=== PATIENT | female | born 1965 | race Caucasian/White ===

== ENCOUNTER 2016-07-19 08:35 | Outpatient (CLI) | payer MEDICARE, MEDICAID ==
[~2016-07-19] VITALS: Ht 161.3 cm; Wt 82.3 kg
[~2016-07-19 08:35] MED LIST: /MOXI40TA PO; ABIL10TA PO; ABIL1TAB5 PO; ABIL2TAB PO; ALPR1TAB3 PO; AMBI10TA OR; AMBI10TA PO; AMIT50TA PO; AMIT50TA2 PO; CARA1SUS OR; CIPRO; COUM1TAB17 PO; CYAN1000VL IM; CYCL10TA PO; DICY10CA13 PO; DICY10CA2; DICY20TA11 PO; FLAG500T; FLEXERIL OR; IRON10VL IV; IRON325T OR; LEVA250T PO; LOPE2TAB PO; LOPERAMIDE PO; LOVE0.6I2 SC; MAGN500T PO; MAXA10TA15 PO; MAXA10TA17; MAXA5TAB10 PO; MIRT45TA PO; MIRT45TA3 PO; OMEP20CA3 PO; OXYC-208 PO; OXYC10TA12 PO; OXYC15TA76 PO; PHEN 25; POLY150C4 PO; POTA10CA PO; POTA10TAB PO; POTASSIUM CITRATE ER PO; POTASSIUM CITRATE1; PRIL20CA PO; REME45TA; RIZA10TA4 PO; SUCR1TAB56 PO; TYLENOL #3; VENTAER IN; VITA-113 INJ; VITA1CHW8 PO; VITA500047 PO; VITAMIN B 12 IM; VITAMIN B12 INJ; VITAMIN D PO; VITAMIN D50000 UNT; VOLT1GEL24 TOP; XANA1TAB2; XARE20TA PO; ZOLP5TAB PO; [UNRECOGNIZED DRUG - OTHER]; [UNRECOGNIZED DRUG - OTHER]; potassium chloride PO
[2016-07-19] MEDS ORDERED: IRON DEXTRAN INJ 25 MG in NS 50 ML IV ONE (10:00)
[2016-07-19] MEDS ORDERED: IRON DEXTRAN INJ 975 MG in NS 250 ML IV ONE (11:00)
== END 2016-07-19 15:22 | disposition home or self-care (01) ==
LOC: M INFU 08:35 → M MS5PR 08:36 → M INFU 15:22
PROVIDERS: ATTEND Internal Medicine Nephrology
DX: D50.9 Iron deficiency anemia, unspecified (principal)
CPT/HCPCS: 96365; 96366; J1750

== ENCOUNTER → 2017-05-22 | Outpatient (REF) | payer MEDICARE, MEDICAID ==
[~2017-05-22] MED LIST changes: +ABIL10TA9 PO; -ABIL1TAB5 PO; +LEVA1TAB PO; -LEVA250T PO; +LOPE2CAP PO; -LOPE2TAB PO; +VOLT1GEL15 TOP; -VOLT1GEL24 TOP
== END ==
LOC: M LAB REF 17:40
PROVIDERS: ATTEND Surgery
DX: M53.3 Sacrococcygeal disorders, not elsewhere classified (principal); S31.109S Unspecified open wound of abdominal wall, unspecified quadrant without penetration into peritoneal cavity, sequela

== ENCOUNTER → 2017-07-12 | Outpatient (CLI) | payer MEDICARE, MEDICAID | LOC: M RAD 11:27 | DX: R92.2 Inconclusive mammogram (principal) | CPT/HCPCS: G0202 ==

== ENCOUNTER → 2017-07-25 | Outpatient (CLI) | payer MEDICARE, MEDICAID | LOC: M RAD 14:41 | DX: N60.82 Other benign mammary dysplasias of left breast (principal) | CPT/HCPCS: 77065 ==

== ENCOUNTER → 2017-10-11 | Outpatient (REF) | payer MEDICARE, MEDICAID ==
[2017-10-11 18:10] LABS: FERRITIN 69 NG/ML (8-252); IRON (FE) 48 UG/DL (50-170); PERCENT SATURATION 15.2 % (13.2-45.0); TOTAL IRON BINDING CAPACITY 316 UG/DL (250-450)
== END ==
LOC: M LAB REF 17:07
DX: D50.9 Iron deficiency anemia, unspecified (principal)
CPT/HCPCS: 83550

== ENCOUNTER 2017-11-07 12:20 | Outpatient (CLI) | payer MEDICARE, MEDICAID ==
[2017-11-07] MEDS: IRON SUCROSE 25 MG in NS 50 ML IV (12:57)
[2017-11-07] MEDS: IRON SUCROSE 475 MG in NS 250 ML IV (14:07)
== END 2017-11-07 17:50 | disposition home or self-care (01) ==
LOC: M INFU 12:20
DX: D50.9 Iron deficiency anemia, unspecified (principal); Z88.2 Allergy status to sulfonamides; Z79.01 Long term (current) use of anticoagulants; Z79.899 Other long term (current) drug therapy
CPT/HCPCS: J1756

== ENCOUNTER → 2017-11-13 | Outpatient (REF) | payer MEDICARE, MEDICAID | LOC: M LAB REF 10:22 | DX: D28.1 Benign neoplasm of vagina (principal); L73.2 Hidradenitis suppurativa | CPT/HCPCS: 88305 ==

== ENCOUNTER 2018-01-27 12:43 | Day surgery (SDC) | payer MEDICARE, MEDICAID ==
[2018-01-27] MEDS: NS 1,000 ML IV (14:00)
== END 2018-01-27 15:25 | disposition home or self-care (01) ==
LOC: M OPP 12:43
DX: R13.10 Dysphagia, unspecified (principal); R12 Heartburn; K22.8 Other specified diseases of esophagus; K21.0 Gastro-esophageal reflux disease with esophagitis; I12.9 Hypertensive chronic kidney disease with stage 1 through stage 4 chronic kidney disease, or unspecified chronic kidney disease; K50.90 Crohn's disease, unspecified, without complications; Z87.19 Personal history of other diseases of the digestive system; K44.9 Diaphragmatic hernia without obstruction or gangrene; D64.9 Anemia, unspecified; M19.90 Unspecified osteoarthritis, unspecified site; F41.9 Anxiety disorder, unspecified; F32.9 Major depressive disorder, single episode, unspecified; G43.909 Migraine, unspecified, not intractable, without status migrainosus; N18.2 Chronic kidney disease, stage 2 (mild); R53.83 Other fatigue; R19.7 Diarrhea, unspecified; R63.0 Anorexia; Z86.711 Personal history of pulmonary embolism; R06.02 Shortness of breath; Z87.891 Personal history of nicotine dependence; Z88.2 Allergy status to sulfonamides; Z79.01 Long term (current) use of anticoagulants; Z79.899 Other long term (current) drug therapy
CPT/HCPCS: 43249

== ENCOUNTER → 2018-04-25 | Outpatient (CLI) | payer MEDICARE, MEDICAID | LOC: M PAIN 14:00 | DX: M79.10 Myalgia, unspecified site (principal); M54.2 Cervicalgia; I10 Essential (primary) hypertension; J21.9 Acute bronchiolitis, unspecified; F41.0 Panic disorder [episodic paroxysmal anxiety]; F32.9 Major depressive disorder, single episode, unspecified; K44.9 Diaphragmatic hernia without obstruction or gangrene; Z79.01 Long term (current) use of anticoagulants; Z79.899 Other long term (current) drug therapy; Z88.1 Allergy status to other antibiotic agents; Z87.448 Personal history of other diseases of urinary system; Z86.2 Personal history of diseases of the blood and blood-forming organs and certain disorders involving the immune mechanism; Z87.19 Personal history of other diseases of the digestive system | CPT/HCPCS: G0463 ==

== ENCOUNTER → 2018-05-05 | Outpatient (CLI) | payer MEDICARE, MEDICAID ==
[~2018-05-05] MED LIST changes: -/MOXI40TA PO; -ABIL10TA PO; -ABIL10TA9 PO; -ABIL2TAB PO; -ALPR1TAB3 PO; -AMBI10TA OR; -AMBI10TA PO; -AMIT50TA PO; -AMIT50TA2 PO; +BUPIVACAINE HCL 0.25% 30 ML VIAL As Ordered; -CARA1SUS OR; -CIPRO; -COUM1TAB17 PO; -CYAN1000VL IM; -CYCL10TA PO; -DICY10CA13 PO; -DICY10CA2; -DICY20TA11 PO; -FLAG500T; -FLEXERIL OR; -IRON10VL IV; -IRON325T OR; -LEVA1TAB PO; -LOPE2CAP PO; -LOPERAMIDE PO; -LOVE0.6I2 SC; -MAGN500T PO; -MAXA10TA15 PO; -MAXA10TA17; -MAXA5TAB10 PO; -MIRT45TA PO; -MIRT45TA3 PO; -OMEP20CA3 PO; -OXYC-208 PO; -OXYC10TA12 PO; -OXYC15TA76 PO; -PHEN 25; -POLY150C4 PO; -POTA10CA PO; -POTA10TAB PO; -POTASSIUM CITRATE ER PO; -POTASSIUM CITRATE1; -PRIL20CA PO; -REME45TA; -RIZA10TA4 PO; -SUCR1TAB56 PO; +TRIAMCINOLONE ACETONIDE SUSP 40 MG/ML VIAL (J3301) As Ordered; -TYLENOL #3; -VENTAER IN; -VITA-113 INJ; -VITA1CHW8 PO; -VITA500047 PO; -VITAMIN B 12 IM; -VITAMIN B12 INJ; -VITAMIN D PO; -VITAMIN D50000 UNT; -VOLT1GEL15 TOP; -XANA1TAB2; -XARE20TA PO; -ZOLP5TAB PO; -[UNRECOGNIZED DRUG - OTHER]; -[UNRECOGNIZED DRUG - OTHER]; +diazePAM 5 MG TAB As Ordered; +oxyCODONE 5MG TAB As Ordered; -potassium chloride PO
== END ==
LOC: M PAIN 08:30
DX: M79.18 Myalgia, other site (principal); M54.2 Cervicalgia; K21.9 Gastro-esophageal reflux disease without esophagitis; M19.90 Unspecified osteoarthritis, unspecified site; F41.9 Anxiety disorder, unspecified; F43.10 Post-traumatic stress disorder, unspecified; F32.9 Major depressive disorder, single episode, unspecified; Z79.01 Long term (current) use of anticoagulants; Z79.899 Other long term (current) drug therapy; Z88.1 Allergy status to other antibiotic agents; Z90.49 Acquired absence of other specified parts of digestive tract; Z87.19 Personal history of other diseases of the digestive system; Z86.2 Personal history of diseases of the blood and blood-forming organs and certain disorders involving the immune mechanism; Z87.11 Personal history of peptic ulcer disease; Z86.711 Personal history of pulmonary embolism
CPT/HCPCS: J3301

== ENCOUNTER → 2018-05-22 | Outpatient (CLI) | payer MEDICARE, MEDICAID | LOC: M PAIN 15:15 | DX: M54.2 Cervicalgia (principal); M79.10 Myalgia, unspecified site; M25.562 Pain in left knee; G62.9 Polyneuropathy, unspecified; K21.9 Gastro-esophageal reflux disease without esophagitis; F41.0 Panic disorder [episodic paroxysmal anxiety]; F32.9 Major depressive disorder, single episode, unspecified; Z79.899 Other long term (current) drug therapy; Z88.1 Allergy status to other antibiotic agents; Z86.711 Personal history of pulmonary embolism; Z87.19 Personal history of other diseases of the digestive system | CPT/HCPCS: G0463 ==

== ENCOUNTER → 2018-05-23 | Outpatient (CLI) | payer MEDICARE, MEDICAID | LOC: M RAD 12:29 | DX: M79.10 Myalgia, unspecified site (principal); M25.462 Effusion, left knee; M50.21 Other cervical disc displacement, high cervical region; M50.221 Other cervical disc displacement at C4-C5 level; M50.222 Other cervical disc displacement at C5-C6 level; M50.223 Other cervical disc displacement at C6-C7 level; M47.892 Other spondylosis, cervical region | CPT/HCPCS: 72141 ==

== ENCOUNTER → 2018-07-02 | Outpatient (CLI) | payer MEDICARE, MEDICAID ==
[~2018-07-02] MED LIST changes: +/MOXI40TA PO; +ABIL10TA PO; +ABIL10TA9 PO; +ABIL2TAB PO; +ALPR1TAB3 PO; +AMBI10TA OR; +AMBI10TA PO; +AMIT50TA PO; +AMIT50TA2 PO; -BUPIVACAINE HCL 0.25% 30 ML VIAL As Ordered; +CARA1SUS OR; +CIPRO; +COUM1TAB17 PO; +CYAN1000VL IM; +CYCL10TA PO; +DICY10CA13 PO; +DICY10CA2; +DICY20TA11 PO; +FLAG500T; +FLEXERIL OR; +IFERCAP PO; +IRON10VL IV; +IRON325T OR; +KLOR10TA76 PO; +LEVA250T13 PO; +LOPE2CAP PO; +LOPERAMIDE PO; +LOVE0.6I2 SC; +MAGN400T2 PO; +MAGN500T PO; +MAXA10TA15 PO; +MAXA10TA17; +MAXA5TAB10 PO; +METO1TAB7 PO; +MIRT45TA PO; +MIRT45TA59 PO; +OMEP20CA3 PO; +OXYC-208 PO; +OXYC10TA12 PO; +OXYC15TA76 PO; +PHEN 25; +POLY150C4 PO; +POTA10808 PO; +POTASSIUM CITRATE ER PO; +POTASSIUM CITRATE1; +PRIL20CA PO; +REME45TA; +RIZA10TA4 PO; +SUCR1TAB56 PO; -TRIAMCINOLONE ACETONIDE SUSP 40 MG/ML VIAL (J3301) As Ordered; +TYLENOL #3; +VENTAER IN; +VITA-113 INJ; +VITA1CHW8 PO; +VITA1TAB27 PO; +VITA500047 PO; +VITAMIN B 12 IM; +VITAMIN B12 INJ; +VITAMIN D PO; +VITAMIN D50000 UNT; +VOLT1GEL15 TOP; +XANA1TAB2; +XARE20TA PO; +ZOLP5TAB PO; +[UNRECOGNIZED DRUG - OTHER]; +[UNRECOGNIZED DRUG - OTHER]; -diazePAM 5 MG TAB As Ordered; -oxyCODONE 5MG TAB As Ordered; +potassium chloride PO
--- NOTE | 2018-07-20 23:35 | ECWPNPC ---
PATIENT NAME: LESLEY ALFONSO : 1965 GENDER: FEMALE VISIT DATE: 07/02/2018 DISCHARGE DATE: 07/02/181753 VISIT LOCKED DATE TIME: PHYSICIAN: GAURAV PINK MD RESOURCE: GAURAV PINK MD REASON FOR APPOINTMENT 1. NECK/LEFT KNEE PAIN HISTORY OF PRESENT ILLNESS HISTORY OF PRESENT ILLNESS: PAIN THE PATIENT DESCRIBES THE PAIN... 52 YEAR OLD FEMALE PATIENT WITH A HISTORY OF CHRONIC NECK PAIN. THE PATIENT DESCRIBES THE PAIN ACHING, STABBING, TENDER, SORE, SHOOTING, AND HAVING IT ALL THE TIME WITH A PAIN SCORE OF 8-10/10 DEPENDING ON PHYSICAL ACTIVITY. THE PATIENT STATES THAT HER PAIN STARTS IN HER NECK AREA AND RADIATES UP INTO HER HEAD. THE PATIENT IS CURRENTLY USING OXYCODONE AND CYCLOBENZAPRINE TO AID IN PAIN RELIEF. PATIENT DENIES UNEXPLAINABLE WEIGHT LOSS, FEVER, CHILLS, NEW CHANGES ON HER URINARY OR BOWEL CONTROL. FALL RISK SCREENING: SCREENING :NO FALLS IN THE PAST YEAR CURRENT MEDICATIONS TAKING OXYCODONE HCL 5 MG TABLET 1 TABLET NEEDED ORALLY FOR PAIN DAILY, NOTES: NONE IN 2 WEEKS TAKING VITAMIN B-12 1000 MCG/15ML LIQUID 15 ML ORALLY ONCE PER MONTH, NOTES: LAST MONTH TAKING MIRTAZAPINE 45 MG TABLET 1 TABLET BEFORE BEDTIME IN THE EVENING ORALLY ONCE A DAY TAKING AMITRIPTYLINE HCL 50 MG TABLET 3 TABLETS ORALLY ONCE A DAY TAKING AMBIEN 5 MG TABLET 1 TABLET AT BEDTIME ORALLY ONCE A DAY TAKING LOPERAMIDE HCL 2 MG CAPSULE 1 CAPSULE ORALLY 3 TIME(S) A DAY TAKING OMEPRAZOLE 20 MG CAPSULE DELAYED RELEASE 2 CAPSULES ORALLY BID TAKING RIZATRIPTAN BENZOATE 10 MG TABLET 1 TABLET NEEDED ONE TIME ORALLY ONCE A DAY TAKING DICYCLOMINE HCL 10 MG CAPSULE 1 CAPSULE ORALLY 3 TIMES A DAY TAKING ABILIFY 10 MG TABLET 1 TABLET ORALLY ONCE A DAY TAKING POLY IRON PN 150 MG 1 CAP ORALLY BID TAKING SUCRALFATE 1 GM TABLET 1 TABLET ON AN EMPTY STOMACH ORALLY TWICE A DAY TAKING KLOR-CON 10 10 MEQ TABLET EXTENDED RELEASE 2 TABLET WITH FOOD ORALLY 3 TIMES A DAY TAKING POTASSIUM CITRATE ER 10 MEQ (1080 MG) TABLET EXTENDED RELEASE 2 TABLETS WITH MEALS ORALLY THREE TIMES A DAY TAKING XARELTO 10 MG TABLET 1 TABLET WITH FOOD ORALLY ONCE A DAY TAKING MAGNESIUM OXIDE 400 MG TABLET 1 TABLET ORALLY TWICE A DAY TAKING METOPROLOL SUCCINATE ER 50 MG TABLET EXTENDED RELEASE 24 HOUR 1 TABLET ORALLY ONCE A DAY TAKING AMLODIPINE BESYLATE 2.5 MG TABLET 1 TABLET ORALLY ONCE A DAY NOT-TAKING GABAPENTIN 100 MG CAPSULE 1 CAPSULE ORALLY FOR PAIN THREE TIMES A DAY, NOTES: ADVERSE REACTION NOT-TAKING BACLOFEN 10 MG TABLET 1 TABLET WITH FOOD OR MILK ORALLY TWICE DAILY NOT-TAKING DOXYCYCLINE HYCLATE 100 MG CAPSULE 1 CAPSULE ORALLY TWICE A DAY UNKNOWN HYDROCODONE-ACETAMINOPHEN 5-325 MG TABLET 1 TABLET NEEDED ORALLY EVERY 6 HRS UNKNOWN BETAMETHASONE DIPROPIONATE 0.05 % OINTMENT 1 APPLICATION TO AFFECTED AREA EXTERNALLY ONCE A DAY UNKNOWN AMOXICILLIN-POT CLAVULANATE 875-125 MG TABLET 1 TABLET ORALLY EVERY 8 HRS UNKNOWN CYCLOBENZAPRINE HCL 10 MG TABLET 1 TABLET ORALLY TWICE A DAY NEEDED UNKNOWN CHANTIX STARTING MONTH CHUY 0.5 MG X 11 & 1 MG X 42 TABLET ORALLY UNKNOWN DOXYCYCLINE HYCLATE 100 MG TABLET 1 TABLET ORALLY TWICE A DAY MEDICATION LIST REVIEWED AND RECONCILED WITH THE PATIENT PAST MEDICAL HISTORY CROHN'S DISEASE ANEMIA CHRONIC INTERSTITIAL NEPHRITIS STAGE 3 HIATAL HERNIA ACID REFLUX ARTHRITIS ANXIETY AND PANIC ATTACKS DEPRESSION GASTRIC ULCER ESOPHAGEAL STRICTURE PULMONARY EMBOLISM HIDRADENITIS PILNOIDAL CYST ILEOSTOMY ALLERGIES BACTRIM: CONTRAINDICATION NEURONTIN: SWEELING IN LEGS SURGICAL HISTORY [facility] PARTIAL REMOVAL OF INTESTINES 1990 [facility]- CHOLECYSTECTOMY 1993 [facility] - REMOVAL OF REMAINDER OF COLON AND SOME SMALL INTESTINES 1996 [facility] - REMOVAL OF RECTAL STUMP 1998 KIDNEY STONE WITH STENTING EXCISION OF RIGHT HIDRADENITIS RIGHT AND LEFT INGUINAL AREA OCTOBER 2017 HYSTERECTOMY FAMILY HISTORY FATHER: ALIVE, DIAGNOSED WITH HYPERTENSION, CANCER MOTHER: ALIVE, DIAGNOSED WITH HYPERTENSION 2 BROTHER(S) , 1 SISTER(S) - HEALTHY. 1 SON(S) - HEALTHY. FATHER WITH LUNG CANCER. SOCIAL HISTORY GENERAL: TOBACCO USE ARE YOU A:NONSMOKER ALCOHOL SCREENING DID YOU HAVE A DRINK CONTAINING ALCOHOL IN THE PAST YEAR?YES HOW MANY DRINKS DID YOU HAVE ON A TYPICAL DAY WHEN YOU WERE DRINKING IN THE PAST YEAR?1 OR 2 (0 POINTS) HOW OFTEN DID YOU HAVE SIX OR MORE DRINKS ON ONE OCCASION IN THE PAST YEAR?NEVER (0 POINTS) POINTS3 INTERPRETATIONPOSITIVE HOW OFTEN DID YOU HAVE A DRINK CONTAINING ALCOHOL IN THE PAST YEAR?TWO TO THREE TIMES PER WEEK (3 POINTS) RECREATIONAL DRUG USE DRUG USE?NO CAFFEINE CAFFEINE USE?YES COFFEE 2-4 CUPS PER DAY ANABAPTIST [id number] SIKHISM NO CONFUCIANISM BELIEFS THAT WOULD IMPACT HEALTH CARE. LANGUAGE TURKMEN. 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 LEARNING BARRIERS / SPECIAL NEEDS CHANGE FROM LAST VISIT?NO BARRIERS TO LEARNING?NO HEARING IMPAIRED?NO VISION IMPAIRED?YES :CORRECTIVE LENSES COGNITIVELY IMPAIRED?NO READINESS TO LEARN?YES LEARNING PREFERENCES?NO LEARNING CAPABILITIES PRESENT?YES EMOTIONAL BARRIERS?NO OCCUPATION: DISABLED. DIET: REGULAR. EXERCISE: NONE. MARITAL STATUS: .. OTHERS AT HOME: NONE. PAIN CLINIC PFS, CLERGY, PUBLIC HEALTH REFERRALS PFS REFERRAL NEEDED?NO CLERGY REFERRAL NEEDED?NO PUBLIC HEALTH REFERRAL NEEDED?NO WAS THE PROVIDER NOTIFIED OF ANY PERTINENT INFO?NO HAS THE PATIENT BEEN EDUCATED REGARDING HIS/HER PLAN OF CARE?YES HAS THE PATIENT BEEN EDUCATED REGARDING PAIN, THE RISK FOR PAIN, THE IMPORTANCE OF EFFECTIVE PAIN MANAGEMENT, AND THE PAIN ASSESSMENT PROCESS?YES HOUSING: OWNS MOBILE HOME. ADVANCE DIRECTIVE ADVANCE DIRECTIVE DISCUSSED WITH PATIENT:YES HCP IS MASOOD ALFONSO 07-02-18 REVIEWED REVIEWED WITH PT 05/22/18 1550 BV. HOSPITALIZATION/MAJOR DIAGNOSTIC PROCEDURE SURGERY RELATED DEHYDRATION 03/2016 REVIEW OF SYSTEMS REVIEWED BY: PROVIDER: GAURAV PINK MD . CONSTITUTIONAL: ANY CHANGE IN YOUR MEDICAL CONDITION? NO . CHILLS NO . FEVER NO . INFECTION: DO YOU HAVE NEW INFECTIONS? NO . DO YOU HAVE HISTORY OF MRSA? NO . MUSCULOSKELETAL: ANY NEW PATTERNS OF PAIN OR NUMBNESS? NO . GASTROENTEROLOGY: ANY NEW CHANGE IN BOWEL CONTROL? NO . GENITOURINARY: ANY NEW CHANGE IN BLADDER CONTROL? NO . IS THERE A CHANCE YOU COULD BE ? NO . HEMATOLOGY/LYMPH: DO YOU TAKE ANY BLOOD THINNERS? (FOR EXAMPLE- COUMADIN, PLAVIX, AGGRENOX, PLATEL, PRADAXA, OR XARELTO) YES . WHEN WAS YOUR LAST DOSE? DATE: TIME: . NEUROLOGY: HAVE YOU FALLEN IN THE PAST 6 MONTHS? NO . ANY NEW EXTREMITY NUMBNESS OR WEAKNESS? NO . CARDIOLOGY: DO YOU HAVE A PACEMAKER OR DEFIBRILLATOR? NO . RESPIRATORY: HAVE YOU BEEN SICK IN THE PAST WEEK? NO . FEVER NO . FLU LIKE SYMPTOMS? NO . COUGH NO . INTEGUMENTARY: DO YOU HAVE ANY RASHES OR OPEN SORES? YES BEING TREATED BY [facility] DR VAZQUEZ FOR HYDRONITIS . ALLERGIC/IMMUNO: ARE YOU ALLERGIC TO SHELLFISH OR IV DYE? NO . ANY NEW ALLERGIES? NO . PSYCHIATRIC: DO YOU HAVE THOUGHTS OF HURTING YOURSELF OR SOMEONE ELSE? NO . ARE YOU ABUSED, NEGLECTED, OR IN AN UNSAFE ENVIRONMENT? NO . ENDOCRINOLOGY: ARE YOU DIABETIC? NO . OTHER: DO YOU NEED ANY PRESCRIPTIONS? NO . IF YES, PLEASE LIST: ____ . ANY NEW PROBLEMS WITH YOUR MEDICATIONS? NO . WHEN DID YOU LAST EAT? ____ . WHEN DID YOU LAST DRINK? ____ . WHAT DID YOU LAST DRINK? ____ . NAME OF PERSON DRIVING YOU HOME? ____ . DO YOU HAVE ANY OTHER QUESTIONS OR CONCERNS NO . VITAL SIGNS WT 222.4 LBS, HT 63 IN, BMI 39.39 INDEX, BP 160/98 MM HG, HR 110 /MIN, RR 18 /MIN, TEMP 98.0 F, OXYGEN SAT % 99%, NA INITIALS AW 1546, REVIEWED BY: KG. EXAMINATION GENERAL EXAMINATION: PATIENT IS ALERT O X 3 AND COOPERATIVE. PAIN INCREASES OVER THE CERVICAL FACET JOINTS WITH EXTENSION AND LATERAL ROTATION OF THE NECK. MRI OF THE CERVICAL SPINE DONE ON 05/23/2018 SHOWS FACET ARTHROPATHY CHANGES AT MULTIPLE LEVELS. ASSESSMENTS SPONDYLOSIS OF CERVICAL REGION WITHOUT MYELOPATHY OR RADICULOPATHY - M47.812 (PRIMARY) MYALGIA, OTHER SITE - M79.18 TREATMENT SPONDYLOSIS OF CERVICAL REGION WITHOUT MYELOPATHY OR RADICULOPATHY CLINICAL NOTES: WE DISCUSSED SEVERAL ISSUES WITH MRS. ALFONSO'S PAIN MANAGEMENT CASE. THE PATIENT WILL SIGN A NARCOTIC AGREEMENT AND PERFORM A URINE TOXICOLOGY TODAY. ISTOP _[id number] WAS REVIEWED. I WILL NEED TO GET A CLEARANCE FOR THE PATIENT TO STOP XARELTO FOR ANY INJECTIONS. AFTER WE RECEIVED THE CLEARANCE, THE PATIENT WILL CONSIDER A CERVICAL FACET BLOCK. I WILL REQUEST AN INTERFERENTIAL TENS UNIT TO SEE IF THAT WILL HELP WITH THE PATIENT'S PAIN FOR NOW UNTIL SHE IS ABLE TO RECEIVE INJECTIONS. THE PATIENT WILL FOLLOW UP IN 1 MONTH. INSTRUCTIONS WERE GIVEN, QUESTIONS WERE ANSWERED, PATIENT REPORTS UNDERSTANDING AND AGREES WITH THE PLAN. I, BRENNA WOODS, DOCUMENTED THE ABOVE INFORMATION ACTING A SCRIBE FOR DR. PINK. I HAVE REVIEWED THE ABOVE DOCUMENT, WRITTEN BY BRENNA NETTLES AND I VERIFY THAT IT IS ACCURATE. OTHERS REFILL OXYCODONE HCL TABLET, 5 MG, 1 TABLET NEEDED, ORALLY FOR PAIN, DAILY, 30 DAY(S), 30 TABLET, REFILLS 0, NOTES: NONE IN 2 WEEKS START CYCLOBENZAPRINE HCL TABLET, 10 MG, 1 TABLET NEEDED, ORALLY FOR SPASMS AND PAIN, EVERY 6 HOURS NEEDED MDD3, 30 DAY(S), 60, REFILLS 1 PROCEDURE CODES FA211 ESTABILISHED PATIENT MERGED WITH [facility] CHARGE G8427 CURRENT MEDS W/DOSAGES DOCUMENTED G8730 PAIN ASSESS POS TOOL F/U PLAN DOC DISPOSITION & COMMUNICATION FOLLOW UP 4 WEEKS ELECTRONICALLY SIGNED BY GAURAV PINK MD, MD ON 07/20/2018 AT 03:11 PM EST DISCLAIMER : THIS IS A VISIT SUMMARY EXTRACTED FROM THE [employer] CHART. IT IS NOT A COPY OF THE [employer] PROGRESS NOTE. MTDD
== END ==
LOC: M PAIN 15:45
PROVIDERS: ATTEND Anesthesiology
DX: M47.812 Spondylosis without myelopathy or radiculopathy, cervical region (principal); M79.18 Myalgia, other site; K50.90 Crohn's disease, unspecified, without complications; D64.9 Anemia, unspecified; N11.9 Chronic tubulo-interstitial nephritis, unspecified; K44.9 Diaphragmatic hernia without obstruction or gangrene; K21.9 Gastro-esophageal reflux disease without esophagitis; M19.90 Unspecified osteoarthritis, unspecified site; F41.0 Panic disorder [episodic paroxysmal anxiety]; F32.9 Major depressive disorder, single episode, unspecified; Z90.49 Acquired absence of other specified parts of digestive tract; Z87.442 Personal history of urinary calculi; Z88.8 Allergy status to other drugs, medicaments and biological substances; Z88.2 Allergy status to sulfonamides; Z79.01 Long term (current) use of anticoagulants; Z79.899 Other long term (current) drug therapy

== ENCOUNTER → 2018-08-25 | Outpatient (CLI) | payer MEDICARE, MEDICAID | LOC: M RAD 12:46 | PROVIDERS: ATTEND Nurse Practitioner Adult Health | DX: Z12.31 Encounter for screening mammogram for malignant neoplasm of breast (principal); Z53.8 Procedure and treatment not carried out for other reasons ==

== ENCOUNTER → 2018-09-16 | Outpatient (REF) | payer MEDICARE, MEDICAID ==
[2018-09-16 18:31] LABS: PERCENT SATURATION 12.6 % (13.2-45.0)
== END ==
LOC: M LAB REF 17:16
PROVIDERS: ATTEND Internal Medicine Nephrology
DX: N39.0 Urinary tract infection, site not specified (principal); D50.9 Iron deficiency anemia, unspecified

== ENCOUNTER → 2018-09-22 | Outpatient (CLI) | payer MEDICARE, MEDICAID ==
[~2018-09-22] MED LIST changes: +AMLO25TA PO; +FENO134C PO; +OXYC1CAP PO
--- NOTE | 2018-10-07 03:50 | ECWPNPC ---
PATIENT NAME: LESLEY ALFONSO : 1965 GENDER: FEMALE VISIT DATE: 09/22/2018 DISCHARGE DATE: 09/22/18 1249 VISIT LOCKED DATE TIME: PHYSICIAN: GAURAV PINK MD RESOURCE: GAURAV PINK MD DISCLAIMER : THIS IS A VISIT SUMMARY EXTRACTED FROM THE [facility] CHART. IT IS NOT A COPY OF THE [employer] PROGRESS NOTE. MTDD
== END ==
LOC: M PAIN 11:45
PROVIDERS: ATTEND Anesthesiology
DX: M47.812 Spondylosis without myelopathy or radiculopathy, cervical region (principal); M79.18 Myalgia, other site; K21.9 Gastro-esophageal reflux disease without esophagitis; M19.90 Unspecified osteoarthritis, unspecified site; F32.9 Major depressive disorder, single episode, unspecified; Z79.01 Long term (current) use of anticoagulants; E66.01 Morbid (severe) obesity due to excess calories; Z68.41 Body mass index [BMI] 40.0-44.9, adult; Z79.899 Other long term (current) drug therapy; Z88.1 Allergy status to other antibiotic agents; Z88.8 Allergy status to other drugs, medicaments and biological substances; Z86.711 Personal history of pulmonary embolism; Z87.11 Personal history of peptic ulcer disease; Z87.19 Personal history of other diseases of the digestive system

== ENCOUNTER 2018-10-02 08:55 | Outpatient (CLI) | payer MEDICARE, MEDICAID ==
[~2018-10-02] VITALS: Ht 160 cm; Wt 101.8 kg
[~2018-10-02 08:55] MED LIST changes: -AMLO25TA PO; -FENO134C PO; -OXYC1CAP PO
[2018-10-02 09:00] VITALS: BP 127/68
[2018-10-02] MEDS ORDERED: IRON SUCROSE 175 MG in NS 250 ML IV ONE (09:30)
[2018-10-02] MEDS ORDERED: IRON SUCROSE 25 MG in NS 50 ML IV ONE (09:30)
[2018-10-02 10:20] VITALS: BP 124/53
[2018-10-02 11:30] VITALS: BP 117/62
[2018-10-02 12:30] VITALS: BP 108/56
[2018-10-02 14:00] VITALS: BP 107/50
[2018-10-02] MEDS ORDERED: OXYC1CAP PO (14:19)
[2018-10-02] MEDS ORDERED: AMLO25TA PO (14:20)
[2018-10-02] MEDS ORDERED: FENO134C PO (14:22)
[2018-10-02 15:00] VITALS: BP 144/72
== END 2018-10-02 15:00 | disposition home or self-care (01) ==
LOC: M INFU 08:55
PROVIDERS: ATTEND Internal Medicine Nephrology
DX: D50.9 Iron deficiency anemia, unspecified (principal); Z88.1 Allergy status to other antibiotic agents; Z88.8 Allergy status to other drugs, medicaments and biological substances; Z79.891 Long term (current) use of opiate analgesic; Z79.899 Other long term (current) drug therapy
CPT/HCPCS: 96365; 96366; J1756

== ENCOUNTER 2018-10-09 08:47 | Outpatient (CLI) | payer MEDICARE, MEDICAID ==
[~2018-10-09] VITALS: Ht 160 cm; Wt 101.8 kg
[~2018-10-09 08:47] MED LIST changes: -/MOXI40TA PO; +AMLO25TA PO; +AVEL1TAB2 PO; +FENO134C PO; +IRON100V IV; -IRON10VL IV; +MIRT1TAB17 PO; -MIRT45TA59 PO; +OXYC1CAP PO
[2018-10-09 09:01] VITALS: BP 166/80
[2018-10-09 09:36] VITALS: BP 121/79
[2018-10-09] MEDS ORDERED: IRON SUCROSE 200 MG in NS 250 ML IV ONE (10:00)
[2018-10-09 10:42] VITALS: BP 113/57
[2018-10-09 11:05] VITALS: BP 120/69
== END 2018-10-09 11:05 | disposition home or self-care (01) ==
LOC: M INFU 08:47
PROVIDERS: ATTEND Internal Medicine Nephrology
DX: D50.9 Iron deficiency anemia, unspecified (principal)
CPT/HCPCS: 96365; 96366; J1756

== ENCOUNTER 2018-10-16 08:53 | Outpatient (CLI) | payer MEDICAID, MEDICARE ==
[~2018-10-16] VITALS: Ht 160 cm; Wt 101.8 kg
[2018-10-16 09:00] VITALS: BP 168/78
[2018-10-16 10:00] VITALS: BP 130/74
[2018-10-16] MEDS ORDERED: IRON SUCROSE 200 MG in NS 250 ML IV ONE (10:00)
[2018-10-16 10:55] VITALS: BP 113/55
[2018-10-16 12:45] VITALS: BP 136/72
[2018-10-16 13:00] VITALS: BP 128/65
== END 2018-10-16 13:00 | disposition home or self-care (01) ==
LOC: M INFU 08:53
PROVIDERS: ATTEND Internal Medicine Nephrology
DX: D50.9 Iron deficiency anemia, unspecified (principal); Z88.1 Allergy status to other antibiotic agents; Z88.8 Allergy status to other drugs, medicaments and biological substances
CPT/HCPCS: 96365; 96366; J1756

== ENCOUNTER → 2018-10-20 | Outpatient (CLI) | payer MEDICARE, MEDICAID ==
--- NOTE | 2018-11-04 02:33 | ECWPNPC ---
PATIENT NAME: LESLEY ALFONSO : 1965 GENDER: FEMALE VISIT DATE: 10/20/2018 DISCHARGE DATE: 10/20/18 1037 VISIT LOCKED DATE TIME: PHYSICIAN: GAURAV PINK MD RESOURCE: GAURAV PINK MD DISCLAIMER : THIS IS A VISIT SUMMARY EXTRACTED FROM THE [employer] CHART. IT IS NOT A COPY OF THE [employer] PROGRESS NOTE. NICOLE
== END ==
LOC: M PAIN 09:15
PROVIDERS: ATTEND Anesthesiology
DX: M47.812 Spondylosis without myelopathy or radiculopathy, cervical region (principal); G89.29 Other chronic pain; M25.562 Pain in left knee; K21.9 Gastro-esophageal reflux disease without esophagitis; M19.90 Unspecified osteoarthritis, unspecified site; E66.01 Morbid (severe) obesity due to excess calories; Z68.41 Body mass index [BMI] 40.0-44.9, adult; Z79.899 Other long term (current) drug therapy; Z79.01 Long term (current) use of anticoagulants; Z88.1 Allergy status to other antibiotic agents; Z88.8 Allergy status to other drugs, medicaments and biological substances; Z86.2 Personal history of diseases of the blood and blood-forming organs and certain disorders involving the immune mechanism; Z86.59 Personal history of other mental and behavioral disorders; Z87.19 Personal history of other diseases of the digestive system; Z87.448 Personal history of other diseases of urinary system

== ENCOUNTER 2018-10-23 08:44 | Outpatient (CLI) | payer MEDICAID, MEDICARE ==
[~2018-10-23] VITALS: Ht 160 cm; Wt 101.8 kg
[2018-10-23 09:00] VITALS: BP 147/77
[2018-10-23] MEDS ORDERED: IRON SUCROSE 200 MG in NS 250 ML IV ONE (09:00)
[2018-10-23 09:35] VITALS: BP 152/75
[2018-10-23 10:39] VITALS: BP 115/76
[2018-10-23 11:45] VITALS: BP 126/67
[2018-10-23 12:08] VITALS: BP 120/74
== END 2018-10-23 12:05 | disposition home or self-care (01) ==
LOC: M INFU 08:44
PROVIDERS: ATTEND Internal Medicine Nephrology
DX: D50.9 Iron deficiency anemia, unspecified (principal); Z88.1 Allergy status to other antibiotic agents; Z88.8 Allergy status to other drugs, medicaments and biological substances
CPT/HCPCS: 96365; 96366; J1756

== ENCOUNTER → 2018-11-17 | Outpatient (REF) | payer MEDICARE, MEDICAID ==
[2018-11-17 16:03] LABS: HEMATOCRIT 36.2 % (36.0-47.0); HEMOGLOBIN 11.5 g/dl (12.0-15.5); MEAN CORPUSCULAR HEMOGLOBIN 28.3 pg (27.0-33.0); MEAN CORPUSCULAR HGB CONC 31.8 g/dl (32.0-36.5); MEAN CORPUSCULAR VOLUME 89.2 fl (80.0-96.0); PLATELET COUNT, AUTOMATED 328 10^3/uL (150-450); RED BLOOD COUNT 4.06 10^6/uL (4.00-5.40); WHITE BLOOD COUNT 9.4 10^3/uL (4.0-10.0)
[2018-11-17 16:16] LABS: ALBUMIN 3.8 GM/DL (3.2-5.2); ALT/SGPT 26 U/L (12-78); BILIRUBIN,TOTAL 0.2 MG/DL (0.2-1.0); BLOOD UREA NITROGEN 18 MG/DL (7-18); CALCIUM LEVEL 9.2 MG/DL (8.5-10.1); CARBON DIOXIDE LEVEL 26 MEQ/L (21-32); CHLORIDE LEVEL 103 MEQ/L (98-107); CREATININE FOR GFR 1.78 MG/DL (0.55-1.30); GLOMERULAR FILTRATION RATE 31.7 (>51); GLUCOSE, FASTING 151 MG/DL (70-100); SODIUM LEVEL 136 MEQ/L (136-145); TOTAL PROTEIN 8.5 GM/DL (6.4-8.2)
[2018-11-17 16:26] LABS: HEPATITIS B SURFACE ANTIBODY NEGATIVE (POSITIVE)
[2018-11-17 16:36] LABS: HEPATITIS B SURFACE ANTIGEN NEGATIVE (NEGATIVE)
[2018-11-17 17:05] LABS: HEPATITIS C VIRUS ABY INDEX 0.1 INDEX (<0.8); HIV 1&2 SCREEN CENTAUR NEGATIVE (NEGATIVE)
[2018-11-19 08:06] LABS: HEPATITIS B CORE ANTIBODY IGG Negative (Negative)
== END ==
LOC: M SFHCPLAZ 13:59
PROVIDERS: ATTEND Dermatology
DX: Z51.81 Encounter for therapeutic drug level monitoring (principal); Z79.899 Other long term (current) drug therapy

== ENCOUNTER → 2018-11-17 | Outpatient (REF) | payer MEDICARE, MEDICAID ==
[2018-11-17 19:54] LABS: BASO # 0.1 10^3/uL (0.0-0.2); BASO % 0.6 % (0.0-1.0); EOS # 0.2 10^3/uL (0.0-0.50); EOS % 2.7 % (0.0-3.0); HEMATOCRIT 34.8 % (36.0-47.0); LYMPH # 1.9 10^3/uL (1.5-4.5); LYMPH % 23.2 % (24.0-44.0); MEAN CORPUSCULAR HEMOGLOBIN 28.6 pg (27.0-33.0); MEAN CORPUSCULAR HGB CONC 31.6 g/dl (32.0-36.5); MEAN CORPUSCULAR VOLUME 90.6 fl (80.0-96.0); MONO # 0.4 10^3/uL (0.0-0.8); MONO % 4.6 % (0.0-5.0); NEUTROPHILS # 5.5 10^3/uL (1.8-7.7); NEUTROPHILS % 68.7 % (36.0-66.0); PLATELET COUNT, AUTOMATED 297 10^3/uL (150-450); RED BLOOD COUNT 3.84 10^6/uL (4.00-5.40); WHITE BLOOD COUNT 8.1 10^3/uL (4.0-10.0)
[2018-11-17 20:05] LABS: ALBUMIN 3.7 GM/DL (3.2-5.2); BILIRUBIN,TOTAL 0.2 MG/DL (0.2-1.0); CHOLESTEROL RISK RATIO 3.051 (<5); CREATININE FOR GFR 1.74 MG/DL (0.55-1.30); GLOMERULAR FILTRATION RATE 32.6 (>51); POTASSIUM SERUM 4.1 MEQ/L (3.5-5.1); THYROID STIMULATING HORMONE 1.34 uIU/ML (0.358-3.740); TOTAL PROTEIN 8.3 GM/DL (6.4-8.2)
[2018-11-17 20:07] LABS: HEMOGLOBIN A1c 7.1 %
== END ==
LOC: M LABDRWAD 19:30
PROVIDERS: ATTEND Nurse Practitioner Adult Health
DX: N05.8 Unspecified nephritic syndrome with other morphologic changes (principal); E78.00 Pure hypercholesterolemia, unspecified; E78.1 Pure hyperglyceridemia; R73.9 Hyperglycemia, unspecified; Z51.81 Encounter for therapeutic drug level monitoring; Z79.899 Other long term (current) drug therapy

== ENCOUNTER → 2018-12-09 | Outpatient (CLI) | payer MEDICARE, MEDICAID ==
--- NOTE | 2018-12-20 23:32 | ECWPNPC ---
PATIENT NAME: LESLEY ALFONSO : 1965 GENDER: FEMALE VISIT DATE: 12/09/2018 DISCHARGE DATE: 12/09/18 1232 VISIT LOCKED DATE TIME: PHYSICIAN: GAURAV PINK MD RESOURCE: GAURAV PINK MD REASON FOR APPOINTMENT 1. 6 WEEKS HISTORY OF PRESENT ILLNESS HISTORY OF PRESENT ILLNESS: PAIN THE PATIENT DESCRIBES THE PAIN... 53 YEAR OLD FEMALE PATIENT WITH A HISTORY OF CHRONIC NECK PAIN. THE PATIENT DESCRIBES THE PAIN ACHING, SORE, TENDER, SHARP, STABBING, SHOOTING, AND CONTINUOUS WITH A PAIN SCORE OF 6-9/10 DEPENDING ON PHYSICAL ACTIVITY. THE PATIENT SAYS THAT SHE ALSO HAS PAIN IN HER RIGHT SHOULDER AND LEFT KNEE. THE PATIENT STATES SHE HAS DIFFICULTY DOING DAILY ACTIVITIES SUCH COOKING AND CLEANING DUE TO THIS PAIN. THE PATIENT IS CURRENTLY USING 2 OXYCODONE PER DAY NEEDED TO AID IN PAIN RELIEF, BUT SAYS IT HAS NOT BEEN HELPING MUCH. PATIENT DENIES UNEXPLAINABLE WEIGHT LOSS, FEVER, CHILLS, NEW CHANGES ON HER URINARY OR BOWEL CONTROL. FALL RISK SCREENING: SCREENING :NO FALLS REPORTED IN THE LAST YEAR CURRENT MEDICATIONS TAKING CYANOCOBALAMIN 1000 MCG/ML SOLUTION 1 ML INJECTION ONCE PER MONTH TAKING AMITRIPTYLINE HCL 50 MG TABLET 3 TABLETS ORALLY ONCE A DAY TAKING AMBIEN 5 MG TABLET 1 TABLET AT BEDTIME ORALLY ONCE A DAY TAKING LOPERAMIDE HCL 2 MG CAPSULE 1 CAPSULE ORALLY 3 TIME(S) A DAY TAKING OMEPRAZOLE 20 MG CAPSULE DELAYED RELEASE 2 CAPSULES ORALLY BID TAKING RIZATRIPTAN BENZOATE 10 MG TABLET 1 TABLET NEEDED ONE TIME ORALLY ONCE A DAY TAKING DICYCLOMINE HCL 10 MG CAPSULE 1 CAPSULE ORALLY 3 TIMES A DAY TAKING ABILIFY 10 MG TABLET 1 TABLET ORALLY ONCE A DAY TAKING POLY IRON PN 150 MG 1 CAP ORALLY BID TAKING SUCRALFATE 1 GM TABLET 1 TABLET ON AN EMPTY STOMACH ORALLY TWICE A DAY TAKING KLOR-CON 10 10 MEQ TABLET EXTENDED RELEASE 2 TABLET WITH FOOD ORALLY 3 TIMES A DAY TAKING POTASSIUM CITRATE ER 10 MEQ (1080 MG) TABLET EXTENDED RELEASE 2 TABLETS WITH MEALS ORALLY THREE TIMES A DAY TAKING XARELTO 10 MG TABLET 1 TABLET WITH FOOD ORALLY ONCE A DAY TAKING MAGNESIUM OXIDE 400 MG TABLET 1 TABLET ORALLY TWICE A DAY TAKING METOPROLOL SUCCINATE ER 50 MG TABLET EXTENDED RELEASE 24 HOUR 1 TABLET ORALLY ONCE A DAY TAKING OXYCODONE HCL 5 MG TABLET 1 TABLET NEEDED ORALLY FOR PAIN EVERY 12 HOURS NEEDED MDD2, NOTES: NONE IN 2 WEEKS TAKING FENOFIBRATE 134 MG CAPSULE 1 CAPSULE WITH A MEAL ORALLY ONCE A DAY TAKING CYCLOBENZAPRINE HCL 10 MG TABLET 1 TABLET NEEDED ORALLY FOR SPASMS AND PAIN EVERY 6 HOURS NEEDED MDD3 TAKING TRADJENTA 5 MG TABLET 1 TABLET ORALLY ONCE A DAY TAKING HUMIRA 40 MG/0.8ML PREFILLED SYRINGE KIT 0.8 ML SUBCUTANEOUS INJECT 160 MG DAY 1 AT 4 SITES, INJECT 80 MG ON DAY 15 AT 2 SITES, INJECT 40 MG DAY AND EVERY 2 WK THEREAFTER, NOTES: HASN'T STARTED YET TAKING MIRTAZAPINE 45 MG TABLET 1 TABLET BEFORE BEDTIME IN THE EVENING ORALLY ONCE A DAY TAKING AMLODIPINE BESYLATE 2.5 MG TABLET 1 TABLET ORALLY ONCE A DAY NOT-TAKING TIZANIDINE HCL 2 MG TABLET 1 TABLET NEEDED ORALLY FOR SPASMS AND PAIN THREE TIMES A DAY MDD3 NOT-TAKING GABAPENTIN 100 MG CAPSULE 1 CAPSULE ORALLY FOR PAIN THREE TIMES A DAY, NOTES: ADVERSE REACTION NOT-TAKING BACLOFEN 10 MG TABLET 1 TABLET WITH FOOD OR MILK ORALLY TWICE DAILY NOT-TAKING DOXYCYCLINE HYCLATE 100 MG CAPSULE 1 CAPSULE ORALLY TWICE A DAY NOT-TAKING HYDROCODONE-ACETAMINOPHEN 5-325 MG TABLET 1 TABLET NEEDED ORALLY EVERY 6 HRS NOT-TAKING BETAMETHASONE DIPROPIONATE 0.05 % OINTMENT 1 APPLICATION TO AFFECTED AREA EXTERNALLY ONCE A DAY NOT-TAKING AMOXICILLIN-POT CLAVULANATE 875-125 MG TABLET 1 TABLET ORALLY EVERY 8 HRS NOT-TAKING CHANTIX STARTING MONTH CHUY 0.5 MG X 11 & 1 MG X 42 TABLET ORALLY NOT-TAKING DOXYCYCLINE HYCLATE 100 MG TABLET 1 TABLET ORALLY TWICE A DAY DISCONTINUED VITAMIN B-12 1000 MCG/15ML LIQUID 15 ML ORALLY ONCE PER MONTH, NOTES: DUPLICATE DISCONTINUED CYCLOBENZAPRINE HCL 10 MG TABLET 1 TABLET ORALLY TWICE A DAY NEEDED, NOTES: DUPLICATE MEDICATION LIST REVIEWED AND RECONCILED WITH THE PATIENT PAST MEDICAL HISTORY CROHN'S DISEASE ANEMIA CHRONIC INTERSTITIAL NEPHRITIS STAGE 3 HIATAL HERNIA ACID REFLUX ARTHRITIS ANXIETY AND PANIC ATTACKS DEPRESSION GASTRIC ULCER ESOPHAGEAL STRICTURE PULMONARY EMBOLISM HIDRADENITIS PILNOIDAL CYST ILEOSTOMY UTI'S 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 - REMOVAL OF REMAINDER OF COLON AND SOME SMALL INTESTINES 1996 [facility] - REMOVAL OF RECTAL STUMP 1998 KIDNEY STONE WITH STENTING EXCISION OF RIGHT HIDRADENITIS RIGHT AND LEFT INGUINAL AREA OCTOBER 2017 HYSTERECTOMY FAMILY HISTORY FATHER: ALIVE, DIAGNOSED WITH HYPERTENSION, CANCER MOTHER: ALIVE, HYPERTENSION 2 BROTHER(S) , 1 SISTER(S) - HEALTHY. 1 SON(S) - HEALTHY. FATHER WITH LUNG CANCER. DENIES FAMILY HX OF MELANOMA AND PANCREATIC CANCER. SOCIAL HISTORY GENERAL: TOBACCO USE ARE YOU A:NONSMOKER OTHERS AT HOME: NONE. HOUSING: OWNS MOBILE HOME. 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 DIET: REGULAR. LANGUAGE KINYARWANDA. DOMESTIC VIOLENCE DO YOU FEEL SAFE IN YOUR ENVIRONMENT?YES RECREATIONAL DRUG USE DRUG USE?NO EXERCISE: NONE. LEARNING BARRIERS / SPECIAL NEEDS CHANGE FROM LAST VISIT?NO BARRIERS TO LEARNING?NO HEARING IMPAIRED?NO VISION IMPAIRED?YES :CORRECTIVE LENSES COGNITIVELY IMPAIRED?NO READINESS TO LEARN?YES LEARNING PREFERENCES?NO LEARNING CAPABILITIES PRESENT?YES EMOTIONAL BARRIERS?NO SPECIAL DEVICES?NO METER SUPERVISOR NEEDED?NO PAIN CLINIC PFS, CLERGY, PUBLIC HEALTH REFERRALS PFS REFERRAL NEEDED?NO CLERGY REFERRAL NEEDED?NO PUBLIC HEALTH REFERRAL NEEDED?NO WAS THE PROVIDER NOTIFIED OF ANY PERTINENT INFO? N/A HAS THE PATIENT BEEN EDUCATED REGARDING HIS/HER PLAN OF CARE?YES HAS THE PATIENT BEEN EDUCATED REGARDING PAIN, THE RISK FOR PAIN, THE IMPORTANCE OF EFFECTIVE PAIN MANAGEMENT, AND THE PAIN ASSESSMENT PROCESS?YES LATEX QUESTIONNAIRE LATEX ALLERGY : HAVE YOU EVER DEVELOPED ANY TYPE OF REACTION AFTER HANDLING LATEX PRODUCTS SUCH RUBBER GLOVES, CONDOMS, DIAPHRAGMS, BALLOONS, SOCKS, OR UNDERWEAR?NO LATEX ALLERGY : HAVE YOU EVER DEVELOPED ANY TYPE OF REACTION DURING OR AFTER DENTAL APPOINTMENT, VAGINAL/RECTAL EXAMINATION, SURGICAL PROCEDURE, OR ANY OTHER EXPOSURE?NO LATEX RISK : HAVE YOU EVER HAD ANY DIFFICULTY BREATHING OR HIVES AFTER EATING OR HANDLING ANY FRUITS, OR VEGETABLES; SUCH KIWI, BANANAS, STONE FRUITS, OR CHESTNUTSNO LATEX RISK : DO YOU HAVE A PREVIOUS PERSONAL HISTORY OF MORE THAN NINE SURGERIES, SPINA BIFIDA, OR REPEATED CATHERTIZATIONS? NO LATEX RISK : ARE YOU FREQUENTLY EXPOSED TO LATEX PRODUCTS IN YOUR OCCUPATION?NO DATE ASKED : 12/09/2018 CAFFEINE CAFFEINE USE?YES COFFEE 2-4 CUPS PER DAY ADVANCE DIRECTIVE ADVANCE DIRECTIVE DISCUSSED WITH PATIENT:YES HCP IS MASOOD ALFONSO [phone] MUSLIM [id number] JAIN NO AMISH BELIEFS THAT WOULD IMPACT HEALTH CARE. MARITAL STATUS: .. ALCOHOL SCREENING DID YOU HAVE A DRINK CONTAINING ALCOHOL IN THE PAST YEAR?YES HOW MANY DRINKS DID YOU HAVE ON A TYPICAL DAY WHEN YOU WERE DRINKING IN THE PAST YEAR?1 OR 2 (0 POINTS) HOW OFTEN DID YOU HAVE SIX OR MORE DRINKS ON ONE OCCASION IN THE PAST YEAR?NEVER (0 POINTS) POINTS3 INTERPRETATIONPOSITIVE HOW OFTEN DID YOU HAVE A DRINK CONTAINING ALCOHOL IN THE PAST YEAR?TWO TO THREE TIMES PER WEEK (3 POINTS) OCCUPATION: DISABLED. REVIEWED WITH PT 05/22/18 1550 BVREVIEWED WITH PT 10/20/18 0929 BV12/09/18 REVIEWED WITH PT. AD. HOSPITALIZATION/MAJOR DIAGNOSTIC PROCEDURE SURGERY RELATED DEHYDRATION 03/2016 PULMONARY EMBOLISM REVIEW OF SYSTEMS REVIEWED BY: PROVIDER: GAURAV PINK MD . CONSTITUTIONAL: ANY CHANGE IN YOUR MEDICAL CONDITION? YES, NEWLY DIAGNOSED DIABETES TYPE II . CHILLS NO . FEVER NO . INFECTION: DO YOU HAVE NEW INFECTIONS? NO . DO YOU HAVE HISTORY OF MRSA? NO . MUSCULOSKELETAL: ANY NEW PATTERNS OF PAIN OR NUMBNESS? YES, HURTS EVERYWHERE BUT THE PAIN IN HER RIGHT SHOULDER HAS INCREASED OVER THE PAST MONTH. SHE IS UNABLE TO RAISE IT, HAS DIFFUCULTY HOOKING HER BRA OR WASHING UNDER HER ARM . GASTROENTEROLOGY: ANY NEW CHANGE IN BOWEL CONTROL? NO . GENITOURINARY: ANY NEW CHANGE IN BLADDER CONTROL? NO . IS THERE A CHANCE YOU COULD BE ? NO . HEMATOLOGY/LYMPH: DO YOU TAKE ANY BLOOD THINNERS? (FOR EXAMPLE- COUMADIN, PLAVIX, AGGRENOX, PLATEL, PRADAXA, OR XARELTO) YES . WHEN WAS YOUR LAST DOSE? DATE: TIME: 12/08 1200 . NEUROLOGY: HAVE YOU FALLEN IN THE PAST 12 MONTHS? NO . ANY NEW EXTREMITY NUMBNESS OR WEAKNESS? NO . CARDIOLOGY: DO YOU HAVE A PACEMAKER OR DEFIBRILLATOR? NO . RESPIRATORY: HAVE YOU BEEN SICK IN THE PAST WEEK? NO . FEVER NO . FLU LIKE SYMPTOMS? NO . COUGH NO . INTEGUMENTARY: DO YOU HAVE ANY RASHES OR OPEN SORES? YES. OPEN SORES BILATERAL GROIN AND COCCYX- FOLLOWS WITH DR. VAZQUEZ . ALLERGIC/IMMUNO: ARE YOU ALLERGIC TO IV DYE? NO . ANY NEW ALLERGIES? NO . PSYCHIATRIC: DO YOU HAVE THOUGHTS OF HURTING YOURSELF OR SOMEONE ELSE? NO . ARE YOU ABUSED, NEGLECTED, OR IN AN UNSAFE ENVIRONMENT? NO . ENDOCRINOLOGY: ARE YOU DIABETIC? YES . OTHER: DO YOU NEED ANY PRESCRIPTIONS? NO . IF YES, PLEASE LIST: ____ . ANY NEW PROBLEMS WITH YOUR MEDICATIONS? NO . WHEN DID YOU LAST EAT? ____ . WHEN DID YOU LAST DRINK? ____ . WHAT DID YOU LAST DRINK? ____ . NAME OF PERSON DRIVING YOU HOME? ____ . DO YOU HAVE ANY OTHER QUESTIONS OR CONCERNS YES HER PAIN IS NOT UNDERCONTROL . VITAL SIGNS WT 227.4 LBS, HT 63 IN, BMI 40.28 INDEX, BP 147/80 MM HG, HR 110 /MIN, RR 16 /MIN, TEMP 98.7 F, OXYGEN SAT % 95%, SAFE IN ENV? (Y/N) Y, NA INITIALS OK 10:49, REVIEWED BY: GHAZAL. EXAMINATION GENERAL EXAMINATION: PATIENT IS ALERT O X 3 AND COOPERATIVE. TENDERNESS IN THE NECK AREA. PAIN INCREASES IN THE CERVICAL FACET JOINTS WITH EXTENSION AND LATERAL ROTATION OF THE NECK. PAIN INCREASES IN THE RIGHT SHOULDER WITH ABDUCTION. SOME TENDERNESS OVER THE LEFT KNEE. MRI OF THE CERVICAL SPINE DONE ON 05/23/2018 SHOWS FACET ARTHROPATHY CHANGES AT MULTIPLE LEVELS. ASSESSMENTS SPONDYLOSIS OF CERVICAL REGION WITHOUT MYELOPATHY OR RADICULOPATHY - M47.812 (PRIMARY) PAIN IN RIGHT SHOULDER - M25.511 OTHER CHRONIC PAIN - G89.29 PAIN IN LEFT KNEE - M25.562 TREATMENT SPONDYLOSIS OF CERVICAL REGION WITHOUT MYELOPATHY OR RADICULOPATHY CLINICAL NOTES: WE DISCUSSED SEVERAL ISSUES WITH MRS. ALFONSO'S PAIN MANAGEMENT CASE. DUE TO THE CERVICAL SPONDYLOSIS, I WOULD LIKE TO MOVE FORWARD WITH A BILATERAL C4-C5, C5-C6 THERAPEUTIC CERVICAL FACET BLOCK. WE DISCUSSED THE BENEFITS, RISKS, AND ALTERNATIVES OF THE INJECTION AND THE PATIENT WOULD LIKE TO PROCEED. THE PATIENT WOULD LIKE TO MOVE FORWARD WITH IV SEDATION DUE TO PAIN AND ANXIETY ASSOCIATED WITH THE PROCEDURE, SO SHE WILL NEED TO COME IN FOR A PRE SEDATION FOLLOW UP. SHE WILL NEED CLEARANCE TO STOP XERALTO. I WILL RE REQUEST AN INTERFERENTIAL TENS UNIT TO HELP WITH THE PAIN IN THE NECK AND RIGHT SHOULDER. I WILL START THE PATIENT ON VOLTAREN GEL FOR HER RIGHT SHOULDER AND LEFT KNEE PAIN. I WILL GIVE THE PATIENT A TRIAL OF MORPHINE FOR THE SOMATIC PAIN SINCE SHE REPORTS THAT THE OXYCODONE HAS NOT BEEN HELPING. ISTOP __#[id number] WAS REVIEWED. URINE TOXICOLOGY DONE ON 07/02/2018 SHOWS CONCURRENT RESULTS. THE PATIENT BROUGHT HER MEDICATION WITH HER IN THE ORIGINAL BOTTLE. I WILL PERFORM A PILL COUNTING TODAY. I WAS WITH THE PATIENT FOR OVER 25 MINUTES AND MORE THAN HALF OF THE TIME WAS SPENT DISCUSSING MEDICATION MANAGEMENT. INSTRUCTIONS WERE GIVEN, QUESTIONS WERE ANSWERED, PATIENT REPORTS UNDERSTANDING AND AGREES WITH THE PLAN. I, BRENNA WOODS, DOCUMENTED THE ABOVE INFORMATION ACTING A SCRIBE FOR DR. PINK. I HAVE REVIEWED THE ABOVE DOCUMENT, WRITTEN BY BRENNA MCWILLIAMSIBJemal AND I VERIFY THAT IT IS ACCURATE. . OTHERS START MORPHINE SULFATE TABLET, 15 MG, 1 TABLET NEEDED, ORALLY FOR PAIN, EVERY 12 HRS MDD2, 7 DAYS, 14, REFILLS 0 START VOLTAREN GEL, 1 %, 1 STRIP FOR PAIN, TRANSDERMAL, FOUR TIMES DAILY NEEDED, 30 DAYS, 2, REFILLS 1 NOTES: FACET JOINT INJECTION MATERIAL WAS PRINTED,FACET JOINT INJECTION: YOUR EXPERIENCE MATERIAL WAS PRINTED. PREVENTIVE MEDICINE PAIN CLINIC TEACHING: MEDICATIONS PRINTED INFORMATION ON FACET BLOCK GIVEN TO AND REVIEWED WITH PT. ALONG WITH PRE-PROCEDURE INTRUCTIONS AND PT. VERBALIZED UNDERSTANDING. AD. PROCEDURE CODES FA211 ESTABILISHED PATIENT [facility] FACILITY CHARGE [id number] CURRENT MEDS W/DOSAGES DOCUMENTED G8730 PAIN ASSESS POS TOOL F/U PLAN DOC DISPOSITION & COMMUNICATION FOLLOW UP PRE SEDATE (REASON: RADHA C4-C5, C5-C6 CFBT W/ IV SEDATION) ELECTRONICALLY SIGNED BY GAURAV PINK MD, MD ON 12/20/2018 AT 05:55 PM EDT DISCLAIMER : THIS IS A VISIT SUMMARY EXTRACTED FROM THE [employer] CHART. IT IS NOT A COPY OF THE [employer] PROGRESS NOTE. MTDD
== END ==
LOC: M PAIN 10:30
PROVIDERS: ATTEND Anesthesiology
DX: M47.812 Spondylosis without myelopathy or radiculopathy, cervical region (principal); M25.511 Pain in right shoulder; G89.29 Other chronic pain; M25.562 Pain in left knee; K21.9 Gastro-esophageal reflux disease without esophagitis; M19.90 Unspecified osteoarthritis, unspecified site; Z86.59 Personal history of other mental and behavioral disorders; G62.9 Polyneuropathy, unspecified; Z88.1 Allergy status to other antibiotic agents; Z88.8 Allergy status to other drugs, medicaments and biological substances; E11.9 Type 2 diabetes mellitus without complications; Z79.01 Long term (current) use of anticoagulants; E66.01 Morbid (severe) obesity due to excess calories; Z68.41 Body mass index [BMI] 40.0-44.9, adult; Z79.899 Other long term (current) drug therapy

== ENCOUNTER → 2019-01-08 | Outpatient (CLI) | payer MEDICARE, MEDICAID ==
--- NOTE | 2019-01-15 00:42 | ECWPNPC ---
PATIENT NAME: LESLEY ALFONSO : 1965 GENDER: FEMALE VISIT DATE: 01/08/2019 DISCHARGE DATE: 01/08/19 1627 VISIT LOCKED DATE TIME: PHYSICIAN: GAURAV PINK MD RESOURCE: GAURAV PINK MD REASON FOR APPOINTMENT 1. PRESEDATE HISTORY OF PRESENT ILLNESS HISTORY OF PRESENT ILLNESS: PAIN THE PATIENT DESCRIBES THE PAIN... 53 YEAR OLD FEMALE PATIENT WITH A HISTORY OF CHRONIC CERVICAL PAIN. THE PATIENT DESCRIBES THE PAIN ACHING, SHOOTING, SORE, SHARP, DAILY, AND CONTINUOUS WITH A PAIN SCORE OF 7-9/10 DEPENDING ON PHYSICAL ACTIVITY. THE PATIENT SAYS THE PAIN BEGINS IN HER NECK AND RADIATES UP TOWARDS HER HEAD. PATIENT DENIES UNEXPLAINABLE WEIGHT LOSS, FEVER, CHILLS, NEW CHANGES ON HER URINARY OR BOWEL CONTROL. FALL RISK SCREENING: SCREENING :NO FALLS REPORTED IN THE LAST YEAR CURRENT MEDICATIONS TAKING CYANOCOBALAMIN 1000 MCG/ML SOLUTION 1 ML INJECTION ONCE PER MONTH TAKING AMITRIPTYLINE HCL 50 MG TABLET 3 TABLETS ORALLY ONCE A DAY TAKING AMBIEN 5 MG TABLET 1 TABLET AT BEDTIME ORALLY ONCE A DAY TAKING LOPERAMIDE HCL 2 MG CAPSULE 1 CAPSULE ORALLY 3 TIME(S) A DAY TAKING OMEPRAZOLE 20 MG CAPSULE DELAYED RELEASE 2 CAPSULES ORALLY BID TAKING RIZATRIPTAN BENZOATE 10 MG TABLET 1 TABLET NEEDED ONE TIME ORALLY ONCE A DAY TAKING DICYCLOMINE HCL 10 MG CAPSULE 1 CAPSULE ORALLY 3 TIMES A DAY TAKING ABILIFY 10 MG TABLET 1 TABLET ORALLY ONCE A DAY TAKING POLY IRON PN 150 MG 1 CAP ORALLY BID TAKING SUCRALFATE 1 GM TABLET 1 TABLET ON AN EMPTY STOMACH ORALLY TWICE A DAY TAKING KLOR-CON 10 10 MEQ TABLET EXTENDED RELEASE 2 TABLET WITH FOOD ORALLY 3 TIMES A DAY TAKING POTASSIUM CITRATE ER 10 MEQ (1080 MG) TABLET EXTENDED RELEASE 2 TABLETS WITH MEALS ORALLY THREE TIMES A DAY TAKING XARELTO 10 MG TABLET 1 TABLET WITH FOOD ORALLY ONCE A DAY TAKING MAGNESIUM OXIDE 400 MG TABLET 1 TABLET ORALLY TWICE A DAY TAKING METOPROLOL SUCCINATE ER 50 MG TABLET EXTENDED RELEASE 24 HOUR 1 TABLET ORALLY ONCE A DAY TAKING FENOFIBRATE 134 MG CAPSULE 1 CAPSULE WITH A MEAL ORALLY ONCE A DAY TAKING CYCLOBENZAPRINE HCL 10 MG TABLET 1 TABLET NEEDED ORALLY FOR SPASMS AND PAIN EVERY 6 HOURS NEEDED MDD3 TAKING TRADJENTA 5 MG TABLET 1 TABLET ORALLY ONCE A DAY TAKING MIRTAZAPINE 45 MG TABLET 1 TABLET BEFORE BEDTIME IN THE EVENING ORALLY ONCE A DAY TAKING AMLODIPINE BESYLATE 2.5 MG TABLET 1 TABLET ORALLY ONCE A DAY TAKING VOLTAREN 1 % GEL 1 STRIP FOR PAIN TRANSDERMAL FOUR TIMES DAILY NEEDED TAKING HUMIRA 40 MG/0.8ML PREFILLED SYRINGE KIT 0.8 ML SUBCUTANEOUS 160 MG (STARTER DOSE) DAY 1 AT 4 SITES, 80 MG ON DAY 15 AT 2 SITES, 40 MG DAY 29 AND EVERY 1 WK THEREAFTER, NOTES: HASN'T STARTED YET TAKING MORPHINE SULFATE 15 MG TABLET 1 TABLET NEEDED ORALLY FOR PAIN EVERY 12 HRS MDD2 NOT-TAKING TIZANIDINE HCL 2 MG TABLET 1 TABLET NEEDED ORALLY FOR SPASMS AND PAIN THREE TIMES A DAY MDD3 NOT-TAKING GABAPENTIN 100 MG CAPSULE 1 CAPSULE ORALLY FOR PAIN THREE TIMES A DAY, NOTES: ADVERSE REACTION NOT-TAKING BACLOFEN 10 MG TABLET 1 TABLET WITH FOOD OR MILK ORALLY TWICE DAILY NOT-TAKING DOXYCYCLINE HYCLATE 100 MG CAPSULE 1 CAPSULE ORALLY TWICE A DAY NOT-TAKING HYDROCODONE-ACETAMINOPHEN 5-325 MG TABLET 1 TABLET NEEDED ORALLY EVERY 6 HRS NOT-TAKING BETAMETHASONE DIPROPIONATE 0.05 % OINTMENT 1 APPLICATION TO AFFECTED AREA EXTERNALLY ONCE A DAY NOT-TAKING AMOXICILLIN-POT CLAVULANATE 875-125 MG TABLET 1 TABLET ORALLY EVERY 8 HRS NOT-TAKING CHANTIX STARTING MONTH CHUY 0.5 MG X 11 & 1 MG X 42 TABLET ORALLY NOT-TAKING DOXYCYCLINE HYCLATE 100 MG TABLET 1 TABLET ORALLY TWICE A DAY DISCONTINUED OXYCODONE HCL 5 MG TABLET 1 TABLET NEEDED ORALLY FOR PAIN EVERY 12 HOURS NEEDED MDD2, NOTES: NONE IN 2 WEEKS MEDICATION LIST REVIEWED AND RECONCILED WITH THE PATIENT PAST MEDICAL HISTORY CROHN'S DISEASE ANEMIA CHRONIC INTERSTITIAL NEPHRITIS STAGE 3 HIATAL HERNIA ACID REFLUX ARTHRITIS ANXIETY AND PANIC ATTACKS DEPRESSION GASTRIC ULCER ESOPHAGEAL STRICTURE PULMONARY EMBOLISM HIDRADENITIS PILNOIDAL CYST ILEOSTOMY UTI'S 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 - REMOVAL OF REMAINDER OF COLON AND SOME SMALL INTESTINES 1996 [facility] - REMOVAL OF RECTAL STUMP 1998 KIDNEY STONE WITH STENTING EXCISION OF RIGHT HIDRADENITIS RIGHT AND LEFT INGUINAL AREA OCTOBER 2017 HYSTERECTOMY FAMILY HISTORY FATHER: ALIVE, DIAGNOSED WITH CANCER, HYPERTENSION MOTHER: ALIVE, HYPERTENSION 2 BROTHER(S) , 1 SISTER(S) - HEALTHY. 1 SON(S) - HEALTHY. FATHER WITH LUNG CANCER. DENIES FAMILY HX OF MELANOMA AND PANCREATIC CANCER. SOCIAL HISTORY GENERAL: TOBACCO USE ARE YOU A:NONSMOKER OTHERS AT HOME: NONE. HOUSING: OWNS MOBILE HOME. 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 DIET: REGULAR. LANGUAGE SPANISH. DOMESTIC VIOLENCE DO YOU FEEL SAFE IN YOUR ENVIRONMENT?YES RECREATIONAL DRUG USE DRUG USE?NO EXERCISE: NONE. LEARNING BARRIERS / SPECIAL NEEDS CHANGE FROM LAST VISIT?NO BARRIERS TO LEARNING?NO HEARING IMPAIRED?NO VISION IMPAIRED?YES :CORRECTIVE LENSES COGNITIVELY IMPAIRED?NO READINESS TO LEARN?YES LEARNING PREFERENCES?NO LEARNING CAPABILITIES PRESENT?YES EMOTIONAL BARRIERS?NO SPECIAL DEVICES?NO RIBBON WINDER NEEDED?NO PAIN CLINIC PFS, CLERGY, PUBLIC HEALTH REFERRALS PFS REFERRAL NEEDED?NO CLERGY REFERRAL NEEDED?NO PUBLIC HEALTH REFERRAL NEEDED?NO WAS THE PROVIDER NOTIFIED OF ANY PERTINENT INFO? N/A HAS THE PATIENT BEEN EDUCATED REGARDING HIS/HER PLAN OF CARE?YES HAS THE PATIENT BEEN EDUCATED REGARDING PAIN, THE RISK FOR PAIN, THE IMPORTANCE OF EFFECTIVE PAIN MANAGEMENT, AND THE PAIN ASSESSMENT PROCESS?YES LATEX QUESTIONNAIRE LATEX ALLERGY : HAVE YOU EVER DEVELOPED ANY TYPE OF REACTION AFTER HANDLING LATEX PRODUCTS SUCH RUBBER GLOVES, CONDOMS, DIAPHRAGMS, BALLOONS, SOCKS, OR UNDERWEAR?NO LATEX ALLERGY : HAVE YOU EVER DEVELOPED ANY TYPE OF REACTION DURING OR AFTER DENTAL APPOINTMENT, VAGINAL/RECTAL EXAMINATION, SURGICAL PROCEDURE, OR ANY OTHER EXPOSURE?NO LATEX RISK : HAVE YOU EVER HAD ANY DIFFICULTY BREATHING OR HIVES AFTER EATING OR HANDLING ANY FRUITS, OR VEGETABLES; SUCH KIWI, BANANAS, STONE FRUITS, OR CHESTNUTSNO LATEX RISK : DO YOU HAVE A PREVIOUS PERSONAL HISTORY OF MORE THAN NINE SURGERIES, SPINA BIFIDA, OR REPEATED CATHERTIZATIONS? NO LATEX RISK : ARE YOU FREQUENTLY EXPOSED TO LATEX PRODUCTS IN YOUR OCCUPATION?NO DATE ASKED : 12/09/2018 CAFFEINE CAFFEINE USE?YES COFFEE 2-4 CUPS PER DAY ADVANCE DIRECTIVE ADVANCE DIRECTIVE DISCUSSED WITH PATIENT:YES HCP IS MASOOD ALFONSO [phone] JAINISM [id number] PROTESTANT NO QUAKER BELIEFS THAT WOULD IMPACT HEALTH CARE. MARITAL STATUS: .. ALCOHOL SCREENING DID YOU HAVE A DRINK CONTAINING ALCOHOL IN THE PAST YEAR?YES HOW MANY DRINKS DID YOU HAVE ON A TYPICAL DAY WHEN YOU WERE DRINKING IN THE PAST YEAR?1 OR 2 (0 POINTS) HOW OFTEN DID YOU HAVE SIX OR MORE DRINKS ON ONE OCCASION IN THE PAST YEAR?NEVER (0 POINTS) POINTS3 INTERPRETATIONPOSITIVE HOW OFTEN DID YOU HAVE A DRINK CONTAINING ALCOHOL IN THE PAST YEAR?TWO TO THREE TIMES PER WEEK (3 POINTS) OCCUPATION: DISABLED. REVIEWED WITH PT 05/22/18 1550 BVREVIEWED WITH PT 10/20/18 0929 BV12/09/18 REVIEWED WITH PT. AD. HOSPITALIZATION/MAJOR DIAGNOSTIC PROCEDURE SURGERY RELATED DEHYDRATION 03/2016 PULMONARY EMBOLISM REVIEW OF SYSTEMS REVIEWED BY: PROVIDER: GAURAV PINK MD . CONSTITUTIONAL: ANY CHANGE IN YOUR MEDICAL CONDITION? NO . CHILLS NO . FEVER NO . INFECTION: DO YOU HAVE NEW INFECTIONS? NO . DO YOU HAVE HISTORY OF MRSA? NO . MUSCULOSKELETAL: ANY NEW PATTERNS OF PAIN OR NUMBNESS? NO . GASTROENTEROLOGY: ANY NEW CHANGE IN BOWEL CONTROL? NO . GENITOURINARY: ANY NEW CHANGE IN BLADDER CONTROL? NO . IS THERE A CHANCE YOU COULD BE ? NO . HEMATOLOGY/LYMPH: DO YOU TAKE ANY BLOOD THINNERS? (FOR EXAMPLE- COUMADIN, PLAVIX, AGGRENOX, PLATEL, PRADAXA, OR XARELTO) YES, XARELTO . WHEN WAS YOUR LAST DOSE? DATE: TIME: . NEUROLOGY: HAVE YOU FALLEN IN THE PAST 12 MONTHS? NO . ANY NEW EXTREMITY NUMBNESS OR WEAKNESS? NO . CARDIOLOGY: DO YOU HAVE A PACEMAKER OR DEFIBRILLATOR? NO . RESPIRATORY: HAVE YOU BEEN SICK IN THE PAST WEEK? NO . FEVER NO . FLU LIKE SYMPTOMS? NO . COUGH NO . INTEGUMENTARY: DO YOU HAVE ANY RASHES OR OPEN SORES? YES, RIGHT GROIN AND COCCYX BOTH RASH AND OPEN SORES, PT WAS TOLD RIGHT GROIN IS FROM CROHNS DISEASE, STARTED ON HUMIRA . ALLERGIC/IMMUNO: ARE YOU ALLERGIC TO IV DYE? NO . ANY NEW ALLERGIES? NO . PSYCHIATRIC: DO YOU HAVE THOUGHTS OF HURTING YOURSELF OR SOMEONE ELSE? NO . ARE YOU ABUSED, NEGLECTED, OR IN AN UNSAFE ENVIRONMENT? NO . ENDOCRINOLOGY: ARE YOU DIABETIC? YES . OTHER: DO YOU NEED ANY PRESCRIPTIONS? NO . IF YES, PLEASE LIST: ____ . ANY NEW PROBLEMS WITH YOUR MEDICATIONS? NO . WHEN DID YOU LAST EAT? ____ . WHEN DID YOU LAST DRINK? ____ . WHAT DID YOU LAST DRINK? ____ . NAME OF PERSON DRIVING YOU HOME? ____ . DO YOU HAVE ANY OTHER QUESTIONS OR CONCERNS NO . VITAL SIGNS WT 222.6 LBS, HT 63 IN, BMI 39.43 INDEX, BP 122/63 MM HG, HR 95 /MIN, RR 18 /MIN, TEMP 97.1 F, OXYGEN SAT % 95%, NA INITIALS AW 1512, REVIEWED BY: EM. EXAMINATION GENERAL EXAMINATION: PATIENT IS ALERT O X 3 AND COOPERATIVE. LUNGS CLEAR, TO AUSCULTATION. HEART: NO MURMURS OR GALLOPS; FACIAL CRANIAL NERVES ARE GROSSLY NORMAL. GOOD SYMMETRY OF FACIAL MUSCLE MOVEMENT. NORMAL VISUAL ALARCON. MRI OF THE CERVICAL SPINE DONE ON 05/23/2018 SHOWS FACET ARTHROPATHY CHANGES. ASSESSMENTS SPONDYLOSIS OF CERVICAL REGION WITHOUT MYELOPATHY OR RADICULOPATHY - M47.812 (PRIMARY) TREATMENT SPONDYLOSIS OF CERVICAL REGION WITHOUT MYELOPATHY OR RADICULOPATHY CLINICAL NOTES: WE DISCUSSED SEVERAL ISSUES WITH MS. ALFONSO' PAIN MANAGEMENT CASE. DUE TO THE CERVICAL SPONDYLOSIS, I WOULD LIKE TO MOVE FORWARD WITH A THERAPEUTIC CERVICAL FACET BLOCK AT THIS TIME. THE PATIENT WOULD LIKE TO MOVE FORWARD WITH IV SEDATION DUE TO DISCOMFORT, PAIN, AND ANXIETY ASSOCIATED WITH THE PROCEDURE. WE DISCUSSED THE BENEFITS, RISKS, AND ALTERNATIVES OF THE INJECTION AND THE PATIENT WOULD LIKE TO PROCEED. INSTRUCTIONS WERE GIVEN, QUESTIONS WERE ANSWERED, PATIENT REPORTS UNDERSTANDING AND AGREES WITH THE PLAN. I, JOSE LUIS VILLEGAS, DOCUMENTED THE ABOVE INFORMATION ACTING A SCRIBE FOR DR. PINK. I HAVE REVIEWED THE ABOVE DOCUMENT, WRITTEN BY JOSE LUIS NETTLES AND I VERIFY THAT IT IS ACCURATE. . PREVENTIVE MEDICINE PAIN CLINIC TEACHING: PROCEDURE TEACHING FACET BLOCK HANDOUT PRINTED, REVIEWED AND GIVEN TO PT. EM. PROCEDURE CODES FA211 ESTABILISHED PATIENT [facility] FACILITY CHARGE G8427 CURRENT MEDS W/DOSAGES DOCUMENTED G8730 PAIN ASSESS POS TOOL F/U PLAN DOC DISPOSITION & COMMUNICATION FOLLOW UP 3 WEEKS (REASON: RADHA CERVICAL FB IV SEDATE) ELECTRONICALLY SIGNED BY GAURAV PINK MD, MD ON 01/14/2019 AT 01:32 PM EDT DISCLAIMER : THIS IS A VISIT SUMMARY EXTRACTED FROM THE [facility] CHART. IT IS NOT A COPY OF THE [facility] PROGRESS NOTE. NICOLE
== END ==
LOC: M PAIN 15:30
PROVIDERS: ATTEND Anesthesiology
DX: M47.812 Spondylosis without myelopathy or radiculopathy, cervical region (principal); K50.90 Crohn's disease, unspecified, without complications; D64.9 Anemia, unspecified; K21.9 Gastro-esophageal reflux disease without esophagitis; N11.9 Chronic tubulo-interstitial nephritis, unspecified; K44.9 Diaphragmatic hernia without obstruction or gangrene; F41.0 Panic disorder [episodic paroxysmal anxiety]; F32.9 Major depressive disorder, single episode, unspecified; M79.10 Myalgia, unspecified site; E11.40 Type 2 diabetes mellitus with diabetic neuropathy, unspecified; M25.562 Pain in left knee; Z87.440 Personal history of urinary (tract) infections; M19.90 Unspecified osteoarthritis, unspecified site; Z87.442 Personal history of urinary calculi; Z79.01 Long term (current) use of anticoagulants; Z79.899 Other long term (current) drug therapy; Z88.2 Allergy status to sulfonamides; Z88.8 Allergy status to other drugs, medicaments and biological substances; Z86.711 Personal history of pulmonary embolism

== ENCOUNTER → 2019-01-22 | Outpatient (CLI) | payer MEDICARE, MEDICAID ==
[~2019-01-22] MED LIST changes: +BUPIVACAINE HCL 0.25% 30 ML VIAL As Ordered ONE; +ISOVUE-M 200 41% 20ML VIAL (Q9966) As Ordered ONE; +LIDOCAINE 1% SDV INJ 30 ML VIAL As Ordered ONE; +MIDAZOLAM INJ 2 MG/2 ML VIAL (J2250) As Ordered ONE; -OMEP20CA3 PO; +OMEP20CA4 PO; +TRIAMCINOLONE ACETONIDE SUSP 40 MG/ML VIAL (J3301) As Ordered ONE; +fentaNYL 100 MCG/2 ML INJECTION (J3010) As Ordered ONE
--- NOTE | 2019-01-22 15:49 | REP ---
Cervical spine series: Single view. History: Bilateral cervical facet block for pain. 12 seconds of fluoroscopy time is reported. Findings: A single last image hold fluoroscopically obtained spot radiograph of the cervical spine documents various needle positions and contrast injections associated with cervical facet injection procedure. Electronically Signed by Tung Martínez MD 01/22/2019 05:13 P
--- NOTE | 2019-01-30 01:26 | ECWPNPC ---
PATIENT NAME: LESLEY ALFONSO : 1965 GENDER: FEMALE VISIT DATE: 01/22/2019 DISCHARGE DATE: 01/22/19 1458 VISIT LOCKED DATE TIME: PHYSICIAN: GAURAV PINK MD RESOURCE: GAURAV PINK MD REASON FOR APPOINTMENT 1. CFBT W/ IV SEDATION HISTORY OF PRESENT ILLNESS HISTORY OF PRESENT ILLNESS: PAIN THE PATIENT DESCRIBES THE PAIN... FALL RISK SCREENING: SCREENING :NO FALLS REPORTED IN THE LAST YEAR CURRENT MEDICATIONS TAKING CYCLOBENZAPRINE HCL 10 MG TABLET 1 TABLET NEEDED ORALLY FOR SPASMS AND PAIN EVERY 6 HOURS NEEDED MDD3, NOTES: 01/21/19 TAKING MORPHINE SULFATE 15 MG TABLET 1 TABLET NEEDED ORALLY FOR PAIN EVERY 12 HRS MDD2, NOTES: 01/21/19 TAKING CYANOCOBALAMIN 1000 MCG/ML SOLUTION 1 ML INJECTION ONCE PER MONTH, NOTES: LAST MONTH TAKING AMITRIPTYLINE HCL 50 MG TABLET 3 TABLETS ORALLY ONCE A DAY, NOTES: 01/22/1999 TAKING AMBIEN 5 MG TABLET 1 TABLET AT BEDTIME ORALLY ONCE A DAY, NOTES: 01/22/1999 TAKING LOPERAMIDE HCL 2 MG CAPSULE 1 CAPSULE ORALLY 3 TIME(S) A DAY, NOTES: 01/22/19699 TAKING OMEPRAZOLE 20 MG CAPSULE DELAYED RELEASE 2 CAPSULES ORALLY BID, NOTES: 01/22/19699 TAKING RIZATRIPTAN BENZOATE 10 MG TABLET 1 TABLET NEEDED ONE TIME ORALLY ONCE A DAY, NOTES: NONE LATELY TAKING DICYCLOMINE HCL 10 MG CAPSULE 1 CAPSULE ORALLY 3 TIMES A DAY, NOTES: 01/22/19699 TAKING ABILIFY 10 MG TABLET 1 TABLET ORALLY ONCE A DAY, NOTES: 01/21/19 TAKING POLY IRON PN 150 MG 1 CAP ORALLY BID, NOTES: 01/22/1999 TAKING SUCRALFATE 1 GM TABLET 1 TABLET ON AN EMPTY STOMACH ORALLY TWICE A DAY, NOTES: 01/22/19699 TAKING KLOR-CON 10 10 MEQ TABLET EXTENDED RELEASE 2 TABLET WITH FOOD ORALLY 3 TIMES A DAY, NOTES: 01/22/19699 TAKING POTASSIUM CITRATE ER 10 MEQ (1080 MG) TABLET EXTENDED RELEASE 2 TABLETS WITH MEALS ORALLY THREE TIMES A DAY, NOTES: 01/22/19699 TAKING XARELTO 10 MG TABLET 1 TABLET WITH FOOD ORALLY ONCE A DAY, NOTES: SATURDAY TAKING MAGNESIUM OXIDE 400 MG TABLET 1 TABLET ORALLY TWICE A DAY, NOTES: 01/22/19699 TAKING METOPROLOL SUCCINATE ER 50 MG TABLET EXTENDED RELEASE 24 HOUR 1 TABLET ORALLY ONCE A DAY, NOTES: 01/22/19699 TAKING FENOFIBRATE 134 MG CAPSULE 1 CAPSULE WITH A MEAL ORALLY ONCE A DAY, NOTES: 01/22/19699 TAKING TRADJENTA 5 MG TABLET 1 TABLET ORALLY ONCE A DAY, NOTES: 01/21/19 TAKING MIRTAZAPINE 45 MG TABLET 1 TABLET BEFORE BEDTIME IN THE EVENING ORALLY ONCE A DAY, NOTES: 01/22/1999 TAKING AMLODIPINE BESYLATE 2.5 MG TABLET 1 TABLET ORALLY ONCE A DAY, NOTES: 01/22/1999 TAKING VOLTAREN 1 % GEL 1 STRIP FOR PAIN TRANSDERMAL FOUR TIMES DAILY NEEDED, NOTES: 01/20/19 TAKING HUMIRA 40 MG/0.8ML PREFILLED SYRINGE KIT 0.8 ML SUBCUTANEOUS 160 MG (STARTER DOSE) DAY 1 AT 4 SITES, 80 MG ON DAY 15 AT 2 SITES, 40 MG DAY AND EVERY 1 WK THEREAFTER, NOTES: 01/09/19 DISCONTINUED TIZANIDINE HCL 2 MG TABLET 1 TABLET NEEDED ORALLY FOR SPASMS AND PAIN THREE TIMES A DAY MDD3 DISCONTINUED GABAPENTIN 100 MG CAPSULE 1 CAPSULE ORALLY FOR PAIN THREE TIMES A DAY, NOTES: ADVERSE REACTION DISCONTINUED BACLOFEN 10 MG TABLET 1 TABLET WITH FOOD OR MILK ORALLY TWICE DAILY DISCONTINUED DOXYCYCLINE HYCLATE 100 MG CAPSULE 1 CAPSULE ORALLY TWICE A DAY DISCONTINUED HYDROCODONE-ACETAMINOPHEN 5-325 MG TABLET 1 TABLET NEEDED ORALLY EVERY 6 HRS DISCONTINUED BETAMETHASONE DIPROPIONATE 0.05 % OINTMENT 1 APPLICATION TO AFFECTED AREA EXTERNALLY ONCE A DAY DISCONTINUED AMOXICILLIN-POT CLAVULANATE 875-125 MG TABLET 1 TABLET ORALLY EVERY 8 HRS DISCONTINUED CHANTIX STARTING MONTH CHUY 0.5 MG X 11 & 1 MG X 42 TABLET ORALLY DISCONTINUED DOXYCYCLINE HYCLATE 100 MG TABLET 1 TABLET ORALLY TWICE A DAY MEDICATION LIST REVIEWED AND RECONCILED WITH THE PATIENT PAST MEDICAL HISTORY CROHN'S DISEASE ANEMIA CHRONIC INTERSTITIAL NEPHRITIS STAGE 3 HIATAL HERNIA ACID REFLUX ARTHRITIS ANXIETY AND PANIC ATTACKS DEPRESSION GASTRIC ULCER ESOPHAGEAL STRICTURE PULMONARY EMBOLISM HIDRADENITIS PILNOIDAL CYST ILEOSTOMY UTI'S 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 [facility] - REMOVAL OF REMAINDER OF COLON AND SOME SMALL INTESTINES 1996 [facility] - REMOVAL OF RECTAL STUMP 1998 KIDNEY STONE WITH STENTING EXCISION OF RIGHT HIDRADENITIS RIGHT AND LEFT INGUINAL AREA OCTOBER 2017 HYSTERECTOMY ILIOSTOMY FAMILY HISTORY FATHER: ALIVE, DIAGNOSED WITH HYPERTENSION, CANCER MOTHER: ALIVE, HYPERTENSION 2 BROTHER(S) , 1 SISTER(S) - HEALTHY. 1 SON(S) - HEALTHY. FATHER WITH LUNG CANCER. DENIES FAMILY HX OF MELANOMA AND PANCREATIC CANCER. SOCIAL HISTORY GENERAL: TOBACCO USE ARE YOU A:NONSMOKER OTHERS AT HOME: NONE. HOUSING: OWNS MOBILE HOME. 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 DIET: REGULAR. LANGUAGE INDONESIAN. DOMESTIC VIOLENCE DO YOU FEEL SAFE IN YOUR ENVIRONMENT?YES RECREATIONAL DRUG USE DRUG USE?NO EXERCISE: NONE. LEARNING BARRIERS / SPECIAL NEEDS CHANGE FROM LAST VISIT?NO BARRIERS TO LEARNING?NO HEARING IMPAIRED?NO VISION IMPAIRED?YES :CORRECTIVE LENSES COGNITIVELY IMPAIRED?NO READINESS TO LEARN?YES LEARNING PREFERENCES?NO LEARNING CAPABILITIES PRESENT?YES EMOTIONAL BARRIERS?NO SPECIAL DEVICES?NO ELEMENTARY LIBRARIAN NEEDED?NO PAIN CLINIC PFS, CLERGY, PUBLIC HEALTH REFERRALS PFS REFERRAL NEEDED?NO CLERGY REFERRAL NEEDED?NO PUBLIC HEALTH REFERRAL NEEDED?NO WAS THE PROVIDER NOTIFIED OF ANY PERTINENT INFO? N/A HAS THE PATIENT BEEN EDUCATED REGARDING HIS/HER PLAN OF CARE?YES HAS THE PATIENT BEEN EDUCATED REGARDING PAIN, THE RISK FOR PAIN, THE IMPORTANCE OF EFFECTIVE PAIN MANAGEMENT, AND THE PAIN ASSESSMENT PROCESS?YES LATEX QUESTIONNAIRE LATEX ALLERGY : HAVE YOU EVER DEVELOPED ANY TYPE OF REACTION AFTER HANDLING LATEX PRODUCTS SUCH RUBBER GLOVES, CONDOMS, DIAPHRAGMS, BALLOONS, SOCKS, OR UNDERWEAR?NO LATEX ALLERGY : HAVE YOU EVER DEVELOPED ANY TYPE OF REACTION DURING OR AFTER DENTAL APPOINTMENT, VAGINAL/RECTAL EXAMINATION, SURGICAL PROCEDURE, OR ANY OTHER EXPOSURE?NO LATEX RISK : HAVE YOU EVER HAD ANY DIFFICULTY BREATHING OR HIVES AFTER EATING OR HANDLING ANY FRUITS, OR VEGETABLES; SUCH KIWI, BANANAS, STONE FRUITS, OR CHESTNUTSNO LATEX RISK : DO YOU HAVE A PREVIOUS PERSONAL HISTORY OF MORE THAN NINE SURGERIES, SPINA BIFIDA, OR REPEATED CATHERIZATIONS? NO LATEX RISK : ARE YOU FREQUENTLY EXPOSED TO LATEX PRODUCTS IN YOUR OCCUPATION?NO DATE ASKED : 12/09/2018 CAFFEINE CAFFEINE USE?YES COFFEE 2-4 CUPS PER DAY ADVANCE DIRECTIVE ADVANCE DIRECTIVE DISCUSSED WITH PATIENT:YES HCP IS MASOOD ALFONSO [phone] [employer]ATH[employer] [id number] CHURCH NO RESTORATION BELIEFS THAT WOULD IMPACT HEALTH CARE. MARITAL STATUS: .. ALCOHOL SCREENING DID YOU HAVE A DRINK CONTAINING ALCOHOL IN THE PAST YEAR?YES HOW MANY DRINKS DID YOU HAVE ON A TYPICAL DAY WHEN YOU WERE DRINKING IN THE PAST YEAR?1 OR 2 (0 POINTS) HOW OFTEN DID YOU HAVE SIX OR MORE DRINKS ON ONE OCCASION IN THE PAST YEAR?NEVER (0 POINTS) POINTS3 INTERPRETATIONPOSITIVE HOW OFTEN DID YOU HAVE A DRINK CONTAINING ALCOHOL IN THE PAST YEAR?TWO TO THREE TIMES PER WEEK (3 POINTS) OCCUPATION: DISABLED. REVIEWED WITH PT 05/22/18 1550 BVREVIEWED WITH PT 10/20/18 0929 BV12/09/18 REVIEWED WITH PT. AD. HOSPITALIZATION/MAJOR DIAGNOSTIC PROCEDURE SURGERY RELATED DEHYDRATION 03/2016 PULMONARY EMBOLISM REVIEW OF SYSTEMS REVIEWED BY: PROVIDER: . CONSTITUTIONAL: ANY CHANGE IN YOUR MEDICAL CONDITION? NO . CHILLS NO . FEVER NO . INFECTION: DO YOU HAVE NEW INFECTIONS? NO . DO YOU HAVE HISTORY OF MRSA? NO . MUSCULOSKELETAL: ANY NEW PATTERNS OF PAIN OR NUMBNESS? NO . GASTROENTEROLOGY: ANY NEW CHANGE IN BOWEL CONTROL? NO . GENITOURINARY: ANY NEW CHANGE IN BLADDER CONTROL? NO . IS THERE A CHANCE YOU COULD BE ? NO . HEMATOLOGY/LYMPH: DO YOU TAKE ANY BLOOD THINNERS? (FOR EXAMPLE- COUMADIN, PLAVIX, AGGRENOX, PLATEL, PRADAXA, OR XARELTO) YES, XARELTO SATURDAY . WHEN WAS YOUR LAST DOSE? DATE: TIME: . NEUROLOGY: HAVE YOU FALLEN IN THE PAST 12 MONTHS? NO . ANY NEW EXTREMITY NUMBNESS OR WEAKNESS? NO . CARDIOLOGY: DO YOU HAVE A PACEMAKER OR DEFIBRILLATOR? NO . RESPIRATORY: HAVE YOU BEEN SICK IN THE PAST WEEK? NO . FEVER NO . FLU LIKE SYMPTOMS? NO . COUGH NO . INTEGUMENTARY: DO YOU HAVE ANY RASHES OR OPEN SORES? YES, COCCYX AND RIGHT GROIN . ALLERGIC/IMMUNO: ARE YOU ALLERGIC TO IV DYE? NO . ANY NEW ALLERGIES? NO . PSYCHIATRIC: DO YOU HAVE THOUGHTS OF HURTING YOURSELF OR SOMEONE ELSE? NO . ARE YOU ABUSED, NEGLECTED, OR IN AN UNSAFE ENVIRONMENT? NO . ENDOCRINOLOGY: ARE YOU DIABETIC? YES, FS 106 THIS AM @ 0700 . OTHER: DO YOU NEED ANY PRESCRIPTIONS? NO . IF YES, PLEASE LIST: ____ . ANY NEW PROBLEMS WITH YOUR MEDICATIONS? NO . WHEN DID YOU LAST EAT? 01/22/19 0100 . WHEN DID YOU LAST DRINK? 01/22/19 1000 . WHAT DID YOU LAST DRINK? WATER . NAME OF PERSON DRIVING YOU HOME? KAILASH . DO YOU HAVE ANY OTHER QUESTIONS OR CONCERNS NO . VITAL SIGNS WT 221.6 LBS, HT 63 IN, BMI 39.25 INDEX, BP 135/79 MM HG, HR 87 /MIN, RR 16 /MIN, TEMP 97.6 F, OXYGEN SAT % 96%, NA INITIALS AW 1258, REVIEWED BY: EM. ASSESSMENTS SPONDYLOSIS OF CERVICAL REGION WITHOUT MYELOPATHY OR RADICULOPATHY - M47.812 (PRIMARY) TREATMENT SPONDYLOSIS OF CERVICAL REGION WITHOUT MYELOPATHY OR RADICULOPATHY [facility] FACET BLOCK (PAIN)[id number] PROCEDURES PN CERVICAL FACET BLOCK LOW BILATERAL CERVICAL PRE PROCEDURE DIAGNOSIS CERVICAL SPONDYLOSIS POST PROCEDURE DIAGNOSIS CERVICAL SPONDYLOSIS PROCEDURE BILATERAL C2-C3 AND BILATERAL C3-C4 CERVICAL FACET BLOCK SURGEON DR. GAURAV PINK [employer] DEAN NONE ANESTHESIA LOCAL WITH IV SEDATION PRE PROCEDURE NOTE THE PATIENT HAS HISTORY OF CHRONIC CERVICAL PAIN. I EVALUATE THE PATIENT AND REVIEWED THE CHART. I WENT OVER THE RISKS, ALTERNATIVES, AND BENEFITS ASSOCIATED WITH THIS PROCEDURE. THE PATIENT WOULD LIKE TO PROCEED AND GIVE CONSENT TO PERFORMED THE PROCEDURE. PATIENT WOULD LIKE TO MOVE FORWARD WITH IV SEDATION DUE TO DISCOMFORT, PAIN AND ANXIETY ASSOCIATED WITH THE PROCEDURE. THE PATIENT DENIES UNEXPLAINABLE WEIGHT LOSS, FEVER, CHILLS, OR NEW CHANGES IN URINARY OR BOWEL CONTROL. DESCRIPTION OF PROCEDURE THE PATIENT WAS BROUGHT TO THE PROCEDURE ROOM AND PLACED IN THE PRONE POSITION. THE CERVICOTHORACIC AREA WAS CLEANED WITH CHLORAPREP SOLUTION AND DRAPED ASEPTICALLY. THE PROCEDURE WAS DONE UNDER STERILE CONDITIONS. I CHECKED LATERALITY AND THE LEVEL WHERE THE PROCEDURE WAS GOING TO BE PERFORMED WITH THE PATIENT AND THE SUPPORTING STAFF AT THE MOMENT OF THE TIME OUT IN THE PROCEDURE ROOM. UNDER FLUOROSCOPIC GUIDANCE, TARGET POINT WAS SELECTED AT THE RIGHT AND LEFT C2-C3 AND RIGHT AND LEFT C3-C4 CERVICAL FACET JOINT. TARGET POINTS WERE SELECTED AFTER LATERAL ROTATION AND TILT OF THE MAGNIFIER OF THE C-ARM. LIDOCAINE 0.5% WAS USED TO NUMB THE SKIN AND THE SUBCUTANEOUS TISSUE BELOW IT. SPINAL NEEDLES, 22-GAUGE, WERE ADVANCED UNDER FLUOROSCOPIC GUIDANCE AND FOLLOWING PATIENT FEEDBACK UNTIL THE TARGETS WERE TOUCHED. THE POSITION OF THE NEEDLES WAS VERIFIED WITH AP AND LATERAL VIEWS. AFTER PROPER POSITION OF THE NEEDLES WAS ACHIEVED, ISOVUE M DYE WAS INJECTED SHOWING SPREAD OF THE DYE. THEN A SOLUTION OF 0.9 ML OF BUPIVACAINE 0.125% AND KENALOG 10 MG WAS INJECTED AT EACH SITE. PATIENT RECEIVED VERSED 2 MG AND FENTANYL 300 MCG IV DIVIDED DOSES. THERE WAS NO EVIDENCE OF BLOOD, PARESTHESIA OR CEREBROSPINAL FLUID DURING THE PROCEDURE. THE PATIENT WAS SENT TO THE RECOVERY ROOM. THE PATIENT WAS MOVING THE EXTREMITIES AND DOING WELL. THERE WAS NO COMPLICATION DURING THE PROCEDURE. FLUOROSCOPY TIME WAS 12 SECONDS. FACE TO FACE TIME WAS 13 MINUTES. POST PROCEDURE NOTE THE PATIENT WILL BE SEEN IN A FOLLOW UP IN THE NEXT FEW WEEKS. INSTRUCTIONS WERE GIVEN, QUESTIONS WERE ANSWERED, AND THE PATIENT EXPRESSED UNDERSTANDING AND AGREES WITH THE PLAN. I, BRENNA WOODS, DOCUMENTED THE ABOVE INFORMATION ACTING A SCRIBE FOR DR. PINK. I HAVE REVIEWED THE ABOVE DOCUMENT, WRITTEN BY BRENNA MCWILLIAMSIBJemal AND I VERIFY THAT IT IS ACCURATE. PROCEDURE CODES [id number] RADXPS IN END [id number] PXD [id number] INJ PARAVERT F JNT C/T 1 LEV, MODIFIERS: 50 [id number] INJ PARAVERT F JNT C/T 2 LEV, MODIFIERS: [id number] MOD SED SAME PHYS/QHP 5/>YRS DISPOSITION & COMMUNICATION FOLLOW UP 3 WEEKS ELECTRONICALLY SIGNED BY GAURAV PINK MD, ON 01/29/2019 AT 04:45 PM EDT DISCLAIMER : THIS IS A VISIT SUMMARY EXTRACTED FROM THE [employer] [facility] CHART. IT IS NOT A COPY OF THE [employer] [facility] PROGRESS NOTE. MTDD
== END ==
LOC: M PAIN 13:00
PROVIDERS: ATTEND Anesthesiology
DX: M47.812 Spondylosis without myelopathy or radiculopathy, cervical region (principal); K50.90 Crohn's disease, unspecified, without complications; D64.9 Anemia, unspecified; N30.10 Interstitial cystitis (chronic) without hematuria; K44.9 Diaphragmatic hernia without obstruction or gangrene; K21.9 Gastro-esophageal reflux disease without esophagitis; F41.0 Panic disorder [episodic paroxysmal anxiety]; F32.9 Major depressive disorder, single episode, unspecified; M79.18 Myalgia, other site; E11.40 Type 2 diabetes mellitus with diabetic neuropathy, unspecified; Z79.891 Long term (current) use of opiate analgesic; Z79.01 Long term (current) use of anticoagulants; Z86.711 Personal history of pulmonary embolism; Z79.899 Other long term (current) drug therapy; Z90.49 Acquired absence of other specified parts of digestive tract; Z87.442 Personal history of urinary calculi; Z88.2 Allergy status to sulfonamides; Z88.8 Allergy status to other drugs, medicaments and biological substances
CPT/HCPCS: 64490; 64491; 99152; J2250; J3010; J3301; Q9966

== ENCOUNTER → 2019-02-16 | Outpatient (CLI) | payer MEDICARE, MEDICAID ==
[~2019-02-16] MED LIST changes: -BUPIVACAINE HCL 0.25% 30 ML VIAL As Ordered ONE; -ISOVUE-M 200 41% 20ML VIAL (Q9966) As Ordered ONE; -LIDOCAINE 1% SDV INJ 30 ML VIAL As Ordered ONE; -MIDAZOLAM INJ 2 MG/2 ML VIAL (J2250) As Ordered ONE; -TRIAMCINOLONE ACETONIDE SUSP 40 MG/ML VIAL (J3301) As Ordered ONE; -fentaNYL 100 MCG/2 ML INJECTION (J3010) As Ordered ONE
--- NOTE | 2019-02-25 01:45 | ECWPNPC ---
PATIENT NAME: LESLEY ALFONSO : 1965 GENDER: FEMALE VISIT DATE: 02/16/2019 DISCHARGE DATE: 02/16/19 1225 VISIT LOCKED DATE TIME: PHYSICIAN: GAURAV PINK MD RESOURCE: GAURAV PINK MD REASON FOR APPOINTMENT 1. POST PROC HISTORY OF PRESENT ILLNESS HISTORY OF PRESENT ILLNESS: PAIN THE PATIENT DESCRIBES THE PAIN... 53 YEAR OLD FEMALE PATIENT WITH A HISTORY OF CHRONIC NECK PAIN. THE PATIENT DESCRIBES THE PAIN ACHING, STABBING, SORE, SHARP, DAILY, AND CONTINUOUS WITH A PAIN SCORE OF 6-10/10 DEPENDING ON PHYSICAL ACTIVITY. THE PATIENT SAYS THE PAIN BEGINS IN HER NECK AND RADIATES UP TOWARDS HER HEAD AND CAUSES HEADACHES FOR HER. THE PATIENT RECEIVED A BILATERAL CERVICAL THERAPEUTIC FACET BLOCK ON 01/22/2019, WHICH SHE SAYS PROVIDED HER WITH SEVERAL WEEKS OF GOOD PAIN RELIEF, BUT THE PAIN HAS SINCE RETURNED. PATIENT DENIES UNEXPLAINABLE WEIGHT LOSS, FEVER, CHILLS, NEW CHANGES ON HER URINARY OR BOWEL CONTROL. FALL RISK SCREENING: SCREENING :NO FALLS REPORTED IN THE LAST YEAR CURRENT MEDICATIONS TAKING CYCLOBENZAPRINE HCL 10 MG TABLET 1 TABLET NEEDED ORALLY FOR SPASMS AND PAIN EVERY 6 HOURS NEEDED MDD3 TAKING MORPHINE SULFATE 15 MG TABLET 1 TABLET NEEDED ORALLY FOR PAIN EVERY 12 HRS MDD2 TAKING CYANOCOBALAMIN 1000 MCG/ML SOLUTION 1 ML INJECTION ONCE PER MONTH TAKING AMITRIPTYLINE HCL 50 MG TABLET 3 TABLETS ORALLY ONCE A DAY TAKING AMBIEN 5 MG TABLET 1 TABLET AT BEDTIME ORALLY ONCE A DAY TAKING LOPERAMIDE HCL 2 MG CAPSULE 1 CAPSULE ORALLY 3 TIME(S) A DAY TAKING OMEPRAZOLE 20 MG CAPSULE DELAYED RELEASE 2 CAPSULES ORALLY BID TAKING RIZATRIPTAN BENZOATE 10 MG TABLET 1 TABLET NEEDED ONE TIME ORALLY ONCE A DAY TAKING DICYCLOMINE HCL 10 MG CAPSULE 1 CAPSULE ORALLY 3 TIMES A DAY TAKING ABILIFY 10 MG TABLET 1 TABLET ORALLY ONCE A DAY TAKING POLY IRON PN 150 MG 1 CAP ORALLY BID TAKING SUCRALFATE 1 GM TABLET 1 TABLET ON AN EMPTY STOMACH ORALLY TWICE A DAY TAKING KLOR-CON 10 10 MEQ TABLET EXTENDED RELEASE 1 TABLET WITH FOOD ORALLY 3 TIMES A DAY TAKING POTASSIUM CITRATE ER 10 MEQ (1080 MG) TABLET EXTENDED RELEASE 2 TABLETS WITH MEALS ORALLY THREE TIMES A DAY TAKING XARELTO 10 MG TABLET 1 TABLET WITH FOOD ORALLY ONCE A DAY TAKING MAGNESIUM OXIDE 400 MG TABLET 1 TABLET ORALLY TWICE A DAY TAKING METOPROLOL SUCCINATE ER 50 MG TABLET EXTENDED RELEASE 24 HOUR 1 TABLET ORALLY ONCE A DAY TAKING FENOFIBRATE 134 MG CAPSULE 1 CAPSULE WITH A MEAL ORALLY ONCE A DAY TAKING TRADJENTA 5 MG TABLET 1 TABLET ORALLY ONCE A DAY TAKING MIRTAZAPINE 45 MG TABLET 1 TABLET BEFORE BEDTIME IN THE EVENING ORALLY ONCE A DAY TAKING AMLODIPINE BESYLATE 2.5 MG TABLET 1 TABLET ORALLY ONCE A DAY TAKING VOLTAREN 1 % GEL 1 STRIP FOR PAIN TRANSDERMAL FOUR TIMES DAILY NEEDED TAKING HUMIRA 40 MG/0.8ML PREFILLED SYRINGE KIT 0.8 ML SUBCUTANEOUS MONTHLY TAKING VITAMIN D (ERGOCALCIFEROL) 57063 UNIT CAPSULE 1 CAPSULE ORALLY EVERY WEEK MEDICATION LIST REVIEWED AND RECONCILED WITH THE PATIENT PAST MEDICAL HISTORY CROHN'S DISEASE ANEMIA CHRONIC INTERSTITIAL NEPHRITIS STAGE 3 HIATAL HERNIA ACID REFLUX ARTHRITIS ANXIETY AND PANIC ATTACKS DEPRESSION GASTRIC ULCER ESOPHAGEAL STRICTURE PULMONARY EMBOLISM HIDRADENITIS PILNOIDAL CYST ILEOSTOMY UTI'S 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 MYALGIA PAIN IN LEFT KNEE DISRUPTION OF PERINEAL WOUND DM RIGHT SHOULDER PAIN ALLERGIES BACTRIM: CONTRAINDICATION NEURONTIN: SWELLING IN LEGS SURGICAL HISTORY [facility] PARTIAL REMOVAL OF INTESTINES 1990 [facility]- CHOLECYSTECTOMY 1993 [facility] - REMOVAL OF REMAINDER OF COLON AND SOME SMALL INTESTINES 1996 [facility] - REMOVAL OF RECTAL STUMP 1998 KIDNEY STONE WITH STENTING EXCISION OF RIGHT HIDRADENITIS RIGHT AND LEFT INGUINAL AREA OCTOBER 2017 HYSTERECTOMY ILIOSTOMY FAMILY HISTORY FATHER: ALIVE 77 YRS, DIAGNOSED WITH HYPERTENSION, CANCER MOTHER: ALIVE 75 YRS, HYPERTENSION 2 BROTHER(S) , 1 SISTER(S) - HEALTHY. 1 SON(S) - HEALTHY. FATHER WITH LUNG CANCER. DENIES FAMILY HX OF MELANOMA AND PANCREATIC CANCER. SOCIAL HISTORY GENERAL: TOBACCO USE ARE YOU A:NONSMOKER OTHERS AT HOME: NONE. HOUSING: OWNS MOBILE HOME. 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 DIET: REGULAR. LANGUAGE CITIZEN OF [place] AND [place]. DOMESTIC VIOLENCE DO YOU FEEL SAFE IN YOUR ENVIRONMENT?YES RECREATIONAL DRUG USE DRUG USE?NO EXERCISE: NONE. LEARNING BARRIERS / SPECIAL NEEDS CHANGE FROM LAST VISIT?NO BARRIERS TO LEARNING?NO HEARING IMPAIRED?NO VISION IMPAIRED?YES :CORRECTIVE LENSES COGNITIVELY IMPAIRED?NO READINESS TO LEARN?YES LEARNING PREFERENCES?NO LEARNING CAPABILITIES PRESENT?YES EMOTIONAL BARRIERS?NO SPECIAL DEVICES?NO SIGNAL TOWER DIRECTOR NEEDED?NO PAIN CLINIC PFS, CLERGY, PUBLIC HEALTH REFERRALS PFS REFERRAL NEEDED?NO CLERGY REFERRAL NEEDED?NO PUBLIC HEALTH REFERRAL NEEDED?NO WAS THE PROVIDER NOTIFIED OF ANY PERTINENT INFO? N/A HAS THE PATIENT BEEN EDUCATED REGARDING HIS/HER PLAN OF CARE?YES HAS THE PATIENT BEEN EDUCATED REGARDING PAIN, THE RISK FOR PAIN, THE IMPORTANCE OF EFFECTIVE PAIN MANAGEMENT, AND THE PAIN ASSESSMENT PROCESS?YES LATEX QUESTIONNAIRE LATEX ALLERGY : HAVE YOU EVER DEVELOPED ANY TYPE OF REACTION AFTER HANDLING LATEX PRODUCTS SUCH RUBBER GLOVES, CONDOMS, DIAPHRAGMS, BALLOONS, SOCKS, OR UNDERWEAR?NO LATEX ALLERGY : HAVE YOU EVER DEVELOPED ANY TYPE OF REACTION DURING OR AFTER DENTAL APPOINTMENT, VAGINAL/RECTAL EXAMINATION, SURGICAL PROCEDURE, OR ANY OTHER EXPOSURE?NO LATEX RISK : HAVE YOU EVER HAD ANY DIFFICULTY BREATHING OR HIVES AFTER EATING OR HANDLING ANY FRUITS, OR VEGETABLES; SUCH KIWI, BANANAS, STONE FRUITS, OR CHESTNUTSNO LATEX RISK : DO YOU HAVE A PREVIOUS PERSONAL HISTORY OF MORE THAN NINE SURGERIES, SPINA BIFIDA, OR REPEATED CATHERIZATIONS? NO LATEX RISK : ARE YOU FREQUENTLY EXPOSED TO LATEX PRODUCTS IN YOUR OCCUPATION?NO DATE ASKED : 12/09/2018 CAFFEINE CAFFEINE USE?YES COFFEE 2-4 CUPS PER DAY ADVANCE DIRECTIVE ADVANCE DIRECTIVE DISCUSSED WITH PATIENT:YES HCP IS MASOOD ALFONSO [phone] BUDDHIST [id number] SABIANIST NO ADVENTISM BELIEFS THAT WOULD IMPACT HEALTH CARE. MARITAL STATUS: .. ALCOHOL SCREENING DID YOU HAVE A DRINK CONTAINING ALCOHOL IN THE PAST YEAR?YES HOW MANY DRINKS DID YOU HAVE ON A TYPICAL DAY WHEN YOU WERE DRINKING IN THE PAST YEAR?1 OR 2 (0 POINTS) HOW OFTEN DID YOU HAVE SIX OR MORE DRINKS ON ONE OCCASION IN THE PAST YEAR?NEVER (0 POINTS) POINTS3 INTERPRETATIONPOSITIVE HOW OFTEN DID YOU HAVE A DRINK CONTAINING ALCOHOL IN THE PAST YEAR?TWO TO THREE TIMES PER WEEK (3 POINTS) OCCUPATION: DISABLED. REVIEWED WITH PT 05/22/18 4445 BVREVIEWED WITH PT 10/20/18 0929 BV12/09/18 REVIEWED WITH PT. AD. HOSPITALIZATION/MAJOR DIAGNOSTIC PROCEDURE SURGERY RELATED DEHYDRATION 03/2016 PULMONARY EMBOLISM REVIEW OF SYSTEMS REVIEWED BY: PROVIDER: GAURAV PINK MD . CONSTITUTIONAL: ANY CHANGE IN YOUR MEDICAL CONDITION? NO . CHILLS NO . FEVER NO . INFECTION: DO YOU HAVE NEW INFECTIONS? NO . DO YOU HAVE HISTORY OF MRSA? NO . MUSCULOSKELETAL: ANY NEW PATTERNS OF PAIN OR NUMBNESS? NO . GASTROENTEROLOGY: ANY NEW CHANGE IN BOWEL CONTROL? NO . GENITOURINARY: ANY NEW CHANGE IN BLADDER CONTROL? NO . IS THERE A CHANCE YOU COULD BE ? NO . HEMATOLOGY/LYMPH: DO YOU TAKE ANY BLOOD THINNERS? (FOR EXAMPLE- COUMADIN, PLAVIX, AGGRENOX, PLATEL, PRADAXA, OR XARELTO) YES . WHEN WAS YOUR LAST DOSE? DATE: TIME: . NEUROLOGY: HAVE YOU FALLEN IN THE PAST 12 MONTHS? NO . ANY NEW EXTREMITY NUMBNESS OR WEAKNESS? NO . CARDIOLOGY: DO YOU HAVE A PACEMAKER OR DEFIBRILLATOR? NO . RESPIRATORY: HAVE YOU BEEN SICK IN THE PAST WEEK? NO . FEVER NO . FLU LIKE SYMPTOMS? NO . COUGH NO . INTEGUMENTARY: DO YOU HAVE ANY RASHES OR OPEN SORES? YES = RIGHT COCCYX AND RIGHT GROIN . ALLERGIC/IMMUNO: ARE YOU ALLERGIC TO IV DYE? NO . ANY NEW ALLERGIES? NO . PSYCHIATRIC: DO YOU HAVE THOUGHTS OF HURTING YOURSELF OR SOMEONE ELSE? NO . ARE YOU ABUSED, NEGLECTED, OR IN AN UNSAFE ENVIRONMENT? NO . ENDOCRINOLOGY: ARE YOU DIABETIC? YES . OTHER: DO YOU NEED ANY PRESCRIPTIONS? YES . IF YES, PLEASE LIST: MORPHINE . ANY NEW PROBLEMS WITH YOUR MEDICATIONS? NO . WHEN DID YOU LAST EAT? ____ . WHEN DID YOU LAST DRINK? ____ . WHAT DID YOU LAST DRINK? ____ . NAME OF PERSON DRIVING YOU HOME? ____ . DO YOU HAVE ANY OTHER QUESTIONS OR CONCERNS YES - PAIN IS NOT UNDER CONTROL . VITAL SIGNS WT 220.0 LBS, HT 63 IN, BMI 38.97 INDEX, BP 140/79 MM HG, HR 88 /MIN, RR 16 /MIN, TEMP 97.8 F, OXYGEN SAT % 100%, NA INITIALS AW 1041, REVIEWED BY: LS. EXAMINATION GENERAL EXAMINATION: PATIENT IS ALERT O X 3 AND COOPERATIVE. TENDERNESS IN NECK. PAIN INCREASES OVER THE CERVICAL FACET JOINTS WITH EXTENSION AND LATERAL ROTATION OF THE NECK. MRI OF THE CERVICAL SPINE DONE ON 05/23/2018 SHOWS FACET ARTHROPATHY CHANGES. ASSESSMENTS SPONDYLOSIS OF CERVICAL REGION WITHOUT MYELOPATHY OR RADICULOPATHY - M47.812 (PRIMARY) TREATMENT SPONDYLOSIS OF CERVICAL REGION WITHOUT MYELOPATHY OR RADICULOPATHY CLINICAL NOTES: WE DISCUSSED SEVERAL ISSUES WITH MS. ALFONSO' PAIN MANAGEMENT CASE. DUE TO THE CERVICAL SPONDYLOSIS, I WOULD LIKE TO MOVE FORWARD WITH A RIGHT C2-C3, C3-C4 DIAGNOSTIC CERVICAL FACET BLOCK __#1 AND, THE NEXT DAY, A LEFT C2-C3, C3-C4 DIAGNOSTIC CERVICAL FACET BLOCK __#1 TO CONSIDER RADIOFREQUENCY. WE DISCUSSED THE BENEFITS, RISKS, AND ALTERNATIVES OF THE PROCEDURE AND THE PATIENT WOULD LIKE TO PROCEED. I REFILLED THE MORPHINE SULFATE 15 MG AT TODAY'S VISIT. THE PATIENT BROUGHT HER MEDICATIONS IN THEIR ORIGINAL BOTTLES TODAY. ISTOP _# [id number] WAS REVIEWED. URINE TOXICOLOGY DONE ON 07/02/2018 SHOWS CONCURRENT RESULTS. ANOTHER URINE TOXICOLOGY AND PILL COUNTING WILL BE PERFORMED TODAY. I AM REFERRING THE PATIENT TO [facility]S PALLIATIVE CARE PROGRAM TO CONTINUE HER MEDICATION MANAGEMENT, WHICH SHE IS INTERESTED IN GOING, AND WILL CONTINUE RECEIVING INJECTION THERAPIES AT OUR CLINIC. THE PATIENT WILL FOLLOW UP IN SEVERAL WEEKS AFTER HER PROCEDURES. INSTRUCTIONS WERE GIVEN, QUESTIONS WERE ANSWERED, PATIENT REPORTS UNDERSTANDING AND AGREES WITH THE PLAN. I, JOSE LUIS VILLEGAS, DOCUMENTED THE ABOVE INFORMATION ACTING A SCRIBE FOR DR. PINK. I HAVE REVIEWED THE ABOVE DOCUMENT, WRITTEN BY JOSE LUIS NETTLES AND I VERIFY THAT IT IS ACCURATE. . OTHERS REFILL MORPHINE SULFATE TABLET, 15 MG, 1 TABLET NEEDED, ORALLY FOR PAIN, EVERY 12 HRS MDD2, 30 DAYS, 50, REFILLS 0 PROCEDURE CODES FA211 ESTABILISHED PATIENT [facility] FACILITY CHARGE G8427 CURRENT MEDS W/DOSAGES DOCUMENTED G8730 PAIN ASSESS POS TOOL F/U PLAN DOC DISPOSITION & COMMUNICATION FOLLOW UP 3 WEEKS (REASON: RIGHT CERVICAL C2-C3, C3-C4 DIAGNOSITC FB #2, THEN NEXT DAY LEFT CFB DIAGNOSITC #1 SAME LEVELS) ELECTRONICALLY SIGNED BY GAURAV PINK MD, MD ON 02/24/2019 AT 12:50 PM EDT DISCLAIMER : THIS IS A VISIT SUMMARY EXTRACTED FROM THE eTelemetry CHART. IT IS NOT A COPY OF THE eTelemetry PROGRESS NOTE. MTDD
== END ==
LOC: M PAIN 10:45
PROVIDERS: ATTEND Anesthesiology
DX: M47.812 Spondylosis without myelopathy or radiculopathy, cervical region (principal); G89.29 Other chronic pain; D50.9 Iron deficiency anemia, unspecified; K21.9 Gastro-esophageal reflux disease without esophagitis; M19.90 Unspecified osteoarthritis, unspecified site; Z86.59 Personal history of other mental and behavioral disorders; E11.9 Type 2 diabetes mellitus without complications; Z88.1 Allergy status to other antibiotic agents; Z88.8 Allergy status to other drugs, medicaments and biological substances; Z86.711 Personal history of pulmonary embolism; Z79.01 Long term (current) use of anticoagulants; Z79.899 Other long term (current) drug therapy

== ENCOUNTER → 2019-02-19 | Outpatient (REF) | payer MEDICARE, MEDICAID ==
[2019-02-19 15:02] LABS: AMORPHOUS SEDIMENT MODERATE (NEGATIVE); APPEARANCE, URINE HAZY (CLEAR); BACTERIA, URINE AUTO 1+ (NEGATIVE); BILIRUBIN, URINE AUTO NEGATIVE (NEGATIVE); BLOOD, URINE BLOOD 2+ (NEGATIVE); COLOR, URINE YELLOW (YELLOW); GLUCOSE, URINE (UA) AUTO 2+ mg/dL (NEGATIVE); KETONE, URINE AUTO NEGATIVE (NEGATIVE); LEUKOCYTE ESTERASE, URINE AUTO 3+ (NEGATIVE); MUCUS, URINE SMALL (NEGATIVE); NITRITE, URINE AUTO NEGATIVE (NEGATIVE); PROTEIN, URINE AUTO 2+ mg/dL (NEGATIVE); RBC, URINE AUTO 10 /HPF (0-3); SPECIFIC GRAVITY URINE AUTO 1.026 (1.002-1.035); SQUAMOUS EPITHELIAL CELL UR AU 6 /HPF (0-6); TRANSITIONAL EPITHELIAL AUTO 2 /HPF; UROBILINOGEN, URINE AUTO 0.2 mg/dL (0.0-2.0); WBC, URINE AUTO TNTC /HPF (0-3)
== END ==
LOC: M SMT 13:14
PROVIDERS: ATTEND Nurse Practitioner Women's Health
DX: R32 Unspecified urinary incontinence (principal)
CPT/HCPCS: 51798; 81001; 87086; G0463

== ENCOUNTER → 2019-02-20 | Outpatient (REF) | payer MEDICARE, MEDICAID ==
[2019-02-20 19:48] LABS: APPEARANCE, URINE HAZY (CLEAR); BACTERIA, URINE AUTO 1+ (NEGATIVE); BILIRUBIN, URINE AUTO NEGATIVE (NEGATIVE); BLOOD, URINE BLOOD 2+ (NEGATIVE); COLOR, URINE YELLOW (YELLOW); GLUCOSE, URINE (UA) AUTO NEGATIVE (NEGATIVE); KETONE, URINE AUTO NEGATIVE (NEGATIVE); LEUKOCYTE ESTERASE, URINE AUTO 3+ (NEGATIVE); NITRITE, URINE AUTO NEGATIVE (NEGATIVE); PROTEIN, URINE AUTO 2+ mg/dL (NEGATIVE); RBC, URINE AUTO 14 /HPF (0-3); SPECIFIC GRAVITY URINE AUTO 1.024 (1.002-1.035); SQUAMOUS EPITHELIAL CELL UR AU 0 /HPF (0-6); UROBILINOGEN, URINE AUTO 0.2 mg/dL (0.0-2.0); WBC, URINE AUTO TNTC /HPF (0-3)
== END ==
LOC: M LABSMT 16:53 → M SFHCADAM 17:06
PROVIDERS: ATTEND Nurse Practitioner Women's Health
DX: N39.0 Urinary tract infection, site not specified (principal)

== ENCOUNTER → 2019-04-17 | Outpatient (CLI) | payer MEDICARE, MEDICAID ==
--- NOTE | 2019-04-17 19:28 | REP ---
HISTORY: Perianal fistula. COMPARISON: Multiple priors all reviewed, the latest 04/26/2016. The lack of intravenous contrast and oral bowel preparatory contrast significantly decreased the sensitivity of the exam. There are chronic lung base changes, status quo. There are no pleural or pericardial effusions. Limited evaluation of the solid intra-abdominal organs show no gross abnormalities. Limited evaluation of the pancreas and adrenal glands show no gross abnormalities. Limited evaluation of the kidneys show stable bilateral renal cysts and essentially unchanged left renal hypoplasia with an unchanged left nephrolith. The abdominal aorta and periaortic regions are unchanged. There is no adenopathy. No free fluid or free air is seen in the abdomen. There is a right-sided ileostomy, status quo. The patient is status post colectomy. There is no evidence of an intraabdominal mass or adenopathy. CT PELVIS: The pelvic bowel loops are essentially unchanged. There is no free fluid or free air. There is no evidence of a pelvic mass or adenopathy. There is normal appearing air density in the gluteal cleft and there is normal appearing air density in the rectal region. There is no new abnormal pelvic soft tissue density. Postoperative changes are noted, status quo. The fluid collection seen previously in the posterior pelvis is no longer present. Bone window technique throughout the exam shows the osseous structures to be stable and intact. IMPRESSION: There is no evidence of acute intra-abdominal or intrapelvic disease. Findings as described above. This examination cannot rule out a perianal fistula. No frankly abnormal air densities are noted in the pelvis. Electronically Signed by Tylor Juarez DO 04/20/2019 04:13 P
== END ==
LOC: M RAD 15:26
PROVIDERS: ATTEND Specialist
DX: K60.3 Anal fistula (principal)

== ENCOUNTER → 2019-04-28 | Outpatient (CLI) | payer MEDICARE, MEDICAID ==
[2019-04-28 09:54] LABS: BASO # 0.1 10^3/uL (0.0-0.2); BASO % 0.9 % (0.0-1.0); EOS # 0.2 10^3/uL (0.0-0.5); EOS % 2.7 % (0.0-3.0); HEMATOCRIT 37.1 % (36.0-47.0); HEMOGLOBIN 11.6 g/dl (12.0-15.5); LYMPH # 1.8 10^3/uL (1.5-5.0); LYMPH % 20.5 % (24.0-44.0); MEAN CORPUSCULAR HEMOGLOBIN 27.9 pg (27.0-33.0); MEAN CORPUSCULAR HGB CONC 31.3 g/dl (32.0-36.5); MEAN CORPUSCULAR VOLUME 89.2 fl (80.0-96.0); MONO # 0.5 10^3/uL (0.0-0.8); MONO % 5.8 % (0.0-5.0); NEUTROPHILS % 69.8 % (36.0-66.0); PLATELET COUNT, AUTOMATED 333 10^3/uL (150-450); RED BLOOD COUNT 4.16 10^6/uL (4.00-5.40); WHITE BLOOD COUNT 8.6 10^3/uL (4.0-10.0)
[2019-04-28 10:12] LABS: HEMOGLOBIN A1c 6.3 %
[2019-04-28 10:24] LABS: ALBUMIN 3.8 GM/DL (3.2-5.2); BILIRUBIN,TOTAL 0.2 MG/DL (0.2-1.0); CALCIUM LEVEL 9.7 MG/DL (8.5-10.1); CHOLESTEROL RISK RATIO 2.742 (<5); CREATININE FOR GFR 1.61 MG/DL (0.55-1.30); GLOMERULAR FILTRATION RATE 35.6 (>51); POTASSIUM SERUM 4.8 MEQ/L (3.5-5.1); THYROID STIMULATING HORMONE 2.32 uIU/ML (0.358-3.740); TOTAL PROTEIN 8.9 GM/DL (6.4-8.2)
== END ==
LOC: M LAB 08:47
PROVIDERS: ATTEND Nurse Practitioner Adult Health
DX: R30.0 Dysuria (principal); K50.913 Crohn's disease, unspecified, with fistula; E78.00 Pure hypercholesterolemia, unspecified; E78.1 Pure hyperglyceridemia; R73.9 Hyperglycemia, unspecified; Z79.899 Other long term (current) drug therapy

== ENCOUNTER → 2019-04-28 | Outpatient (CLI) | payer MEDICARE, MEDICAID ==
[~2019-04-28] MED LIST changes: +CONRAY-43 43% 50ML VIAL (Q9960) As Ordered ONE; +PROHANCE 279.3MG/ML 5ML VIAL (A9576) As Ordered ONE; -RIZA10TA4 PO; +RIZA10TA58 PO
--- NOTE | 2019-04-28 10:39 | REP ---
MR arthrography right shoulder: with pre and post intra-articular gadolinium enhanced saline injected imaging: History: Osteoarthritis of the right shoulder. Right shoulder pain. Comparison radiographs are from August 20, 2013. Technique: The injection procedure is performed and dictated separately. Pre and post intra-articular gadolinium enhanced saline injected imaging is acquired. Imaging planes include axial, oblique coronal, oblique sagittal and ABER projection images. T1 T2-weighted scans are included with and without fat saturation. MRI findings: Pre injection MR imaging demonstrates normal alignment of the glenohumeral and acromioclavicular joints. There is osteoarthritic hypertrophy of the AC joint superiorly and inferiorly. Cortical and medullary bone signal intensity are normal. There are several subcortical cyst formed in the superolateral humeral head. This is a finding which may correlate with impingement. There is mild inferolateral acromion process spurring. Mild subcortical cyst formation is seen at the AC joint. No glenohumeral or bursal effusion is appreciated on pre injection imaging. Postinjection imaging shows good filling and enhancement of the right glenohumeral articulation. There is no evidence of supraspinatus or other rotator cuff tear. The biceps, infraspinatus, and subscapularis tendons appear intact. There is mild supraspinatus tendinosis. There is no evidence of loose body. No anterior or posterior labral tear is appreciated. The superior labrum appears intact as well. Impression: AC joint osteoarthritis. Supraspinatus tendinosis. Mild acromion process spurring. Electronically Signed by Tung Martínez MD 04/28/2019 11:27 A
--- NOTE | 2019-04-28 10:56 | REP ---
Reason For Exam/Comment: Osteoarthritis of the right shoulder Procedure: Right MRI arthrogram The procedure was performed by CHERYL Alves, under the direct supervision of Dr. Martínez. The benefits and risks including but not limited to pain, infection, bleeding and anaphylaxis were explained to the patient and informed consent was obtained both verbally and written. Directly prior to the start of the procedure, a formal timeout was completed in the procedure room. Technique: The right glenohumeral joint space was localized using fluoroscopic guidance. The skin was prepped and draped in the usual sterile fashion. 3 mL of 1% lidocaine was used as a local anesthetic. Using fluoroscopic guidance a 22-gauge spinal needle was inserted and advanced to the right glenohumeral joint space. 2 mL of Conray 43 was injected to verify needle placement. 12 mL of a solution containing 20 ml of sterile saline and a 0.15 ml of ProHance was injected into the joint. The needle was removed and the patient was taken MRI for post procedural imaging. The patient tolerated the procedure well and there were no immediate complications. 0.2 minutes of fluoroscopy time was utilized for this procedure. Some fluoroscopic images are performed with last image hold technology. These images require no additional radiation. Reviewed by CHERYL Gómez 04/28/2019 10:46 A Electronically Signed by Tung Martínez MD 04/28/2019 10:47 A
== END ==
LOC: M RADPRO 06:35
PROVIDERS: ATTEND Orthopaedic Surgery
DX: M19.011 Primary osteoarthritis, right shoulder (principal); M25.711 Osteophyte, right shoulder; R30.0 Dysuria; K50.913 Crohn's disease, unspecified, with fistula; E78.00 Pure hypercholesterolemia, unspecified; E78.1 Pure hyperglyceridemia; R73.9 Hyperglycemia, unspecified; Z79.899 Other long term (current) drug therapy
CPT/HCPCS: 23350; 36415; 73223; 77002; 80053; 80061; 83036; 84443; 85027; A9576; Q9960

== ENCOUNTER → 2019-05-07 | Outpatient (REF) | payer MEDICARE, MEDICAID ==
[~2019-05-07] MED LIST changes: -CONRAY-43 43% 50ML VIAL (Q9960) As Ordered ONE; -PROHANCE 279.3MG/ML 5ML VIAL (A9576) As Ordered ONE
== END ==
LOC: M SMT 17:03
PROVIDERS: ATTEND Nurse Practitioner Women's Health
DX: R30.0 Dysuria (principal)

== ENCOUNTER → 2019-05-14 | Outpatient (REF) | payer MEDICARE, MEDICAID | LOC: M LAB REF 11:35 | PROVIDERS: ATTEND Internal Medicine Gastroenterology | DX: K50.918 Crohn's disease, unspecified, with other complication (principal); R19.7 Diarrhea, unspecified ==

== ENCOUNTER → 2019-08-25 | Outpatient (CLI) | payer MEDICARE, MEDICAID ==
[~2019-08-25] MED LIST changes: +OMEP1CAP73 PO; -OMEP20CA4 PO
[2019-08-26 11:48] LABS: HEPATITIS B SURFACE ANTIBODY NEGATIVE (POSITIVE); HEPATITIS B SURFACE ANTIGEN NEGATIVE (NEGATIVE); HEPATITIS C VIRUS ABY INDEX 0.1 INDEX (<0.8); HIV 1&2 SCREEN CENTAUR NEGATIVE (NEGATIVE)
== END ==
LOC: M LAB 14:03
PROVIDERS: ATTEND Dermatology
DX: K50.918 Crohn's disease, unspecified, with other complication (principal)
CPT/HCPCS: 36415; 86480; 86704; 86706; 86803; 87340; 87389; G0463

== ENCOUNTER → 2019-12-08 | Outpatient (CLI) | payer MEDICARE, MEDICAID ==
[~2019-12-08] MED LIST changes: +CYCL-707 PO; -CYCL10TA PO; +OXYC-1 PO; -OXYC15TA76 PO
[2019-12-08 18:46] LABS: ALBUMIN 3.6 GM/DL (3.2-5.2); ALT/SGPT 24 U/L (12-78); BILIRUBIN,TOTAL 0.1 MG/DL (0.2-1.0); BLOOD UREA NITROGEN 20 MG/DL (7-18); C REACTIVE PROTEIN QUANTITATIV 1.02 MG/DL (0.00-0.30); CALCIUM LEVEL 9.7 MG/DL (8.5-10.1); CARBON DIOXIDE LEVEL 29 MEQ/L (21-32); CHLORIDE LEVEL 104 MEQ/L (98-107); COMPLEMENT C3 212 MG/DL (90-180); COMPLEMENT C4 26 MG/DL (10-40); CREATININE FOR GFR 1.58 MG/DL (0.55-1.30); GLOMERULAR FILTRATION RATE 36.3 (>51); GLUCOSE, FASTING 161 MG/DL (70-100); POTASSIUM SERUM 4.9 MEQ/L (3.5-5.1); RHEUMATOID FACTOR QUANT < 10.0 IU/ML (<15.0); SODIUM LEVEL 140 MEQ/L (136-145); TOTAL PROTEIN 8.7 GM/DL (6.4-8.2)
[2019-12-08 18:52] LABS: BASO # 0.1 10^3/uL (0.0-0.2); BASO % 0.5 % (0.0-1.0); EOS # 0.3 10^3/uL (0.0-0.5); EOS % 3.1 % (0.0-3.0); HEMATOCRIT 37.5 % (36.0-47.0); HEMOGLOBIN 11.4 g/dl (12.0-15.5); LYMPH # 1.5 10^3/uL (1.5-5.0); LYMPH % 16.3 % (24.0-44.0); MEAN CORPUSCULAR HGB CONC 30.4 g/dl (32.0-36.5); MEAN CORPUSCULAR VOLUME 85.6 fl (80.0-96.0); MONO # 0.4 10^3/uL (0.0-0.8); MONO % 4.6 % (0.0-5.0); NEUTROPHILS # 7.1 10^3/uL (1.5-8.5); PLATELET COUNT, AUTOMATED 399 10^3/uL (150-450); RED BLOOD COUNT 4.38 10^6/uL (4.00-5.40); WHITE BLOOD COUNT 9.4 10^3/uL (4.0-10.0)
[2019-12-08 19:39] LABS: ERYTHROCYTE SEDIMENTATION RATE 68 mm/hr (0-30)
[2019-12-11 03:44] LABS: CYCLIC CITRULLINATED PEPTIDE 46 units (0-19); SSA SJOGRENS A <0.2 AI (0.0-0.9); SSB SJOGRENS B <0.2 AI (0.0-0.9)
== END ==
LOC: M PLALAB 14:08
PROVIDERS: ATTEND Internal Medicine
DX: K50.918 Crohn's disease, unspecified, with other complication (principal); M25.50 Pain in unspecified joint; K11.7 Disturbances of salivary secretion; N39.0 Urinary tract infection, site not specified
CPT/HCPCS: 36415; 80053; 85025; 85652; 86140; 86160; 86200; 86235; 86431; G0463

== ENCOUNTER → 2019-12-09 | Outpatient (REF) | payer MEDICARE, MEDICAID ==
[2019-12-09 16:37] LABS: APPEARANCE, URINE CLOUDY (CLEAR); BACTERIA, URINE AUTO NEGATIVE (NEGATIVE); BILIRUBIN, URINE AUTO NEGATIVE (NEGATIVE); BLOOD, URINE BLOOD 1+ (NEGATIVE); COLOR, URINE YELLOW (YELLOW); GLUCOSE, URINE (UA) AUTO 2+ mg/dL (NEGATIVE); KETONE, URINE AUTO NEGATIVE (NEGATIVE); LEUKOCYTE ESTERASE, URINE AUTO 3+ (NEGATIVE); NITRITE, URINE AUTO NEGATIVE (NEGATIVE); PROTEIN, URINE AUTO 2+ mg/dL (NEGATIVE); RBC, URINE AUTO 8 /HPF (0-3); SPECIFIC GRAVITY URINE AUTO 1.019 (1.002-1.035); SQUAMOUS EPITHELIAL CELL UR AU 1 /HPF (0-6); UROBILINOGEN, URINE AUTO 0.2 mg/dL (0.0-2.0); WBC, URINE AUTO TNTC /HPF (0-3)
== END ==
LOC: M LAB REF 14:56
PROVIDERS: ATTEND Internal Medicine
DX: N39.0 Urinary tract infection, site not specified (principal)

== ENCOUNTER → 2019-12-15 | Outpatient (REF) | payer MEDICARE, MEDICAID ==
[2019-12-15 18:04] LABS: APPEARANCE, URINE HAZY (CLEAR); BACTERIA, URINE AUTO 1+ (NEGATIVE); BILIRUBIN, URINE AUTO NEGATIVE (NEGATIVE); BLOOD, URINE BLOOD 1+ (NEGATIVE); COLOR, URINE YELLOW (YELLOW); GLUCOSE, URINE (UA) AUTO NEGATIVE (NEGATIVE); KETONE, URINE AUTO NEGATIVE (NEGATIVE); LEUKOCYTE ESTERASE, URINE AUTO 2+ (NEGATIVE); NITRITE, URINE AUTO NEGATIVE (NEGATIVE); PROTEIN, URINE AUTO 2+ mg/dL (NEGATIVE); RBC, URINE AUTO 4 /HPF (0-3); SPECIFIC GRAVITY URINE AUTO 1.018 (1.002-1.035); SQUAMOUS EPITHELIAL CELL UR AU 1 /HPF (0-6); UROBILINOGEN, URINE AUTO 0.2 mg/dL (0.0-2.0); WBC, URINE AUTO 63 /HPF (0-3)
== END ==
LOC: M SFHCRHEU 14:42 → M SFHCADAM 14:42
PROVIDERS: ATTEND Internal Medicine
DX: N30.00 Acute cystitis without hematuria (principal)

== ENCOUNTER → 2019-12-17 | Outpatient (REF) | payer MEDICARE, MEDICAID ==
[2019-12-17 18:27] LABS: APPEARANCE, URINE HAZY (CLEAR); BACTERIA, URINE AUTO NEGATIVE (NEGATIVE); BILIRUBIN, URINE AUTO NEGATIVE (NEGATIVE); BLOOD, URINE BLOOD NEGATIVE (NEGATIVE); COLOR, URINE YELLOW (YELLOW); GLUCOSE, URINE (UA) AUTO 1+ mg/dL (NEGATIVE); KETONE, URINE AUTO NEGATIVE (NEGATIVE); LEUKOCYTE ESTERASE, URINE AUTO TRACE (NEGATIVE); MUCUS, URINE SMALL (NEGATIVE); NITRITE, URINE AUTO NEGATIVE (NEGATIVE); PROTEIN, URINE AUTO 2+ mg/dL (NEGATIVE); RBC, URINE AUTO 3 /HPF (0-3); SPECIFIC GRAVITY URINE AUTO 1.024 (1.002-1.035); SQUAMOUS EPITHELIAL CELL UR AU 0 /HPF (0-6); UROBILINOGEN, URINE AUTO 0.2 mg/dL (0.0-2.0); WBC, URINE AUTO 15 /HPF (0-3)
== END ==
LOC: M SMT 17:00
PROVIDERS: ATTEND Specialist
DX: R30.0 Dysuria (principal)

== ENCOUNTER 2020-01-04 08:03 | Outpatient (CLI) | payer MEDICARE, MEDICAID ==
[2020-01-04] VITALS (7 sets, daily range): BP systolic 111–154; BP diastolic 60–82
[~2020-01-04] VITALS: Ht 160 cm; Wt 91.7 kg
[2020-01-04] MEDS ORDERED: diphenhydrAMINE 25MG CAP PO ONE (08:30)
[2020-01-04] MEDS ORDERED: ACETAMINOPHEN TAB 650MG DOSE (2X325MG) PO ONE (08:30)
[2020-01-04] MEDS ORDERED: diphenhydrAMINE 50MG/ML VIAL (J1200) IV PRN (08:45)
[2020-01-04] MEDS ORDERED: NS 1,000 ML IV SCH (08:45)
[2020-01-04] MEDS ORDERED: ALBUTEROL SULFATE 2.5 MG/0.5 ML INH NEB SOLN INH PRN (08:45)
[2020-01-04] MEDS ORDERED: EPINEPHrine INJ 1 MG/ML 1ML AMP IM PRN (08:45)
[2020-01-04] MEDS ORDERED: methylPREDNISolone INJ 125 MG/2 ML VIAL (J2930) IV PRN (08:45)
[2020-01-04] MEDS ORDERED: inFLIXimab INJECTION 300 MG in NS 220 ML IV ONE (08:45)
== END 2020-01-04 11:35 | disposition home or self-care (01) ==
LOC: M INFU 08:03
PROVIDERS: ATTEND Internal Medicine
DX: K50.918 Crohn's disease, unspecified, with other complication (principal); Z79.4 Long term (current) use of insulin; Z79.891 Long term (current) use of opiate analgesic; Z79.899 Other long term (current) drug therapy; Z88.1 Allergy status to other antibiotic agents; Z88.5 Allergy status to narcotic agent
CPT/HCPCS: 96413; 96415; J1745

== ENCOUNTER 2020-01-18 08:29 | Outpatient (CLI) | payer MEDICARE, MEDICAID ==
[2020-01-18] VITALS (9 sets, daily range): BP systolic 98–131; BP diastolic 52–66
[~2020-01-18] VITALS: Ht 160 cm; Wt 91.7 kg
[2020-01-18] MEDS ORDERED: ALBUTEROL SULFATE 2.5 MG/0.5 ML INH NEB SOLN INH PRN (09:15)
[2020-01-18] MEDS ORDERED: diphenhydrAMINE 25MG CAP PO ONE (09:15)
[2020-01-18] MEDS ORDERED: ACETAMINOPHEN TAB 650MG DOSE (2X325MG) PO ONE (09:15)
[2020-01-18] MEDS ORDERED: EPINEPHrine INJ 1 MG/ML 1ML AMP IM PRN (09:15)
[2020-01-18] MEDS ORDERED: diphenhydrAMINE 50MG/ML VIAL (J1200) IV PRN (09:15)
[2020-01-18] MEDS ORDERED: inFLIXimab INJECTION 300 MG in NS 220 ML IV ONE (09:15)
[2020-01-18] MEDS ORDERED: methylPREDNISolone 125MG 2ML VIAL IV PRN (09:15)
== END 2020-01-18 12:10 | disposition home or self-care (01) ==
LOC: M INFU 08:29
PROVIDERS: ATTEND Internal Medicine
DX: K50.918 Crohn's disease, unspecified, with other complication (principal)
CPT/HCPCS: 96413; 96415; J1745

== ENCOUNTER → 2020-02-12 | Outpatient (REF) | payer MEDICARE, MEDICAID | LOC: M SMT 10:12 | PROVIDERS: ATTEND Nurse Practitioner Family | DX: N39.0 Urinary tract infection, site not specified (principal) ==

== ENCOUNTER → 2020-02-12 | Outpatient (CLI) | payer MEDICARE, MEDICAID ==
--- NOTE | 2020-03-08 14:25 | REPMRS ---
Patient History The patient states she has not had a clinical breast exam in over a year. Patient is postmenopausal. Family history of unknown cancer at age 50 in father. Took hormonal contraceptives for 11 years. Digital Woman Screen Mammo: February 12, 2020 - Exam #: [id number] Bilateral CC and MLO view(s) were taken. Technologist: Janneth Palomares, Technologist Prior study comparison: October 30, 2018, bilateral digital mammo screening bilat, performed at [facility]. July 25, 2017, left breast digital mammo diagnostic unilateral, performed at [facility]. July 12, 2016, bilateral digital mammo screening bilat, performed at [facility]. FINDINGS: There are scattered fibroglandular densities. The Volpara volumetric breast density category is:B. There has been no change in the appearance of the mammogram from the prior studies. There is a mild amount of scattered fibroglandular density which is fairly symmetric. There is no interval development of dominant mass, architectural distortion, or grouped microcalcification suggestive of malignancy. 3-D tomosynthesis shows no additional findings. Report was delayed due to a protracted computer network disruption experienced by this facility. Assessment: BI-RADS/ACR category 1 mammogram. Negative Mammogram. Recommendation Routine screening mammogram of both breasts in 1 year (for women over age 40). This patient's Lifetime Breast Cancer Risk is estimated at 9.1 %. This mammogram was interpreted with the aid of an FDA-approved computer-aided dectection system. Electronically Signed By: Ryan Martínez MD 03/08/20 4906
--- NOTE | 2020-03-15 13:13 | DEXA ---
AP SPINE L2 - L4 1.069 -0.9 -0.2 LT FEMUR TOTAL 1.005 0.0 0.6 LT NECK 1.014 -0.2 0.8 RT FEMUR TOTAL 1.192 1.5 2.1 RT NECK 1.122 0.6 1.6 TOTAL BODY TOTAL OTHER COMMENTS: Normal Bone Densitometry of the spine and hips. The density of the spine as decreased 6.6% since 03/19/2002. The density of the spine has decreased 2.2% since 03/19/2002. The density if the spine has increased 16.7% since 03/19/2002. FOLLOW-UP: Recommendation for the next bone density exam: 5 years. TEOFILOD
== END ==
LOC: M WHC 12:00
PROVIDERS: ATTEND Nurse Practitioner Adult Health
DX: Z12.31 Encounter for screening mammogram for malignant neoplasm of breast (principal); M85.80 Other specified disorders of bone density and structure, unspecified site

== ENCOUNTER 2020-02-15 08:38 | Outpatient (CLI) | payer MEDICARE, MEDICAID ==
[2020-02-15] MEDS ORDERED: ACETAMINOPHEN TAB 650MG DOSE (2X325MG) ONE (09:29)
[2020-02-15] MEDS ORDERED: ACETAMINOPHEN TAB 650MG DOSE (2X325MG) As Ordered ONE (09:29)
[2020-02-15] MEDS ORDERED: diphenhydrAMINE 25MG CAP ONE (09:29)
[2020-02-15] MEDS ORDERED: inFLIXimab 100MG/10ML VIAL (REMICADE) J1745 PER 10MG ONE (09:29)
[2020-02-15] MEDS ORDERED: diphenhydrAMINE 25MG CAP As Ordered ONE (09:30)
== END 2020-02-15 12:00 | disposition home or self-care (01) ==
LOC: M INFU 08:38
PROVIDERS: ATTEND Internal Medicine
DX: K50.90 Crohn's disease, unspecified, without complications (principal)
CPT/HCPCS: 96413; 96415; J1745

== ENCOUNTER → 2020-02-23 | Outpatient (REF) | payer MEDICARE, MEDICAID ==
[2020-03-27 11:32] LABS: APPEARANCE, URINE CLOUDY (CLEAR); BACTERIA, URINE AUTO 1+ (NEGATIVE); BILIRUBIN, URINE AUTO NEGATIVE (NEGATIVE); BLOOD, URINE BLOOD 1+ (NEGATIVE); COLOR, URINE YELLOW (YELLOW); GLUCOSE, URINE (UA) AUTO 1+ mg/dL (NEGATIVE); KETONE, URINE AUTO NEGATIVE (NEGATIVE); LEUKOCYTE ESTERASE, URINE AUTO 3+ (NEGATIVE); NITRITE, URINE AUTO NEGATIVE (NEGATIVE); PROTEIN, URINE AUTO 2+ mg/dL (NEGATIVE); RBC, URINE AUTO 13 /HPF (0-3); SQUAMOUS EPITHELIAL CELL UR AU 5 /HPF (0-6); UROBILINOGEN, URINE AUTO 0.2 mg/dL (0.0-2.0); WBC, URINE AUTO TNTC /HPF (0-3)
== END ==
LOC: M SMT 15:35
PROVIDERS: ATTEND Nurse Practitioner Women's Health
DX: N39.0 Urinary tract infection, site not specified (principal)

== ENCOUNTER → 2020-02-29 | Outpatient (REF) | payer MEDICARE, MEDICAID ==
[2020-04-16 15:57] LABS: APPEARANCE, URINE HAZY (CLEAR); BACTERIA, URINE AUTO 1+ (NEGATIVE); BILIRUBIN, URINE AUTO NEGATIVE (NEGATIVE); BLOOD, URINE BLOOD 1+ (NEGATIVE); COLOR, URINE YELLOW (YELLOW); GLUCOSE, URINE (UA) AUTO NEGATIVE (NEGATIVE); KETONE, URINE AUTO NEGATIVE (NEGATIVE); LEUKOCYTE ESTERASE, URINE AUTO 3+ (NEGATIVE); NITRITE, URINE AUTO NEGATIVE (NEGATIVE); PROTEIN, URINE AUTO 2+ mg/dL (NEGATIVE); RBC, URINE AUTO 3 /HPF (0-3); SPECIFIC GRAVITY URINE AUTO 1.018 (1.002-1.035); SQUAMOUS EPITHELIAL CELL UR AU 0 /HPF (0-6); UROBILINOGEN, URINE AUTO 0.2 mg/dL (0.0-2.0); WBC, URINE AUTO TNTC /HPF (0-3)
== END ==
LOC: M SMT 10:38
PROVIDERS: ATTEND Nurse Practitioner Family
DX: N39.0 Urinary tract infection, site not specified (principal)

== ENCOUNTER → 2020-03-16 | Outpatient (CLI) | payer MEDICARE, MEDICAID ==
[2020-03-16 16:08] LABS: BASO # 0.1 10^3/uL (0.0-0.2); BASO % 0.9 % (0.0-1.0); EOS # 0.2 10^3/uL (0.0-0.5); EOS % 3.5 % (0.0-3.0); HEMATOCRIT 37.8 % (36.0-47.0); HEMOGLOBIN 11.9 g/dl (12.0-15.5); LYMPH % 30.2 % (24.0-44.0); MEAN CORPUSCULAR HEMOGLOBIN 27.9 pg (27.0-33.0); MEAN CORPUSCULAR HGB CONC 31.5 g/dl (32.0-36.5); MEAN CORPUSCULAR VOLUME 88.7 fl (80.0-96.0); MONO # 0.4 10^3/uL (0.0-0.8); MONO % 6.7 % (0.0-5.0); NEUTROPHILS # 3.8 10^3/uL (1.5-8.5); NEUTROPHILS % 58.5 % (36.0-66.0); PLATELET COUNT, AUTOMATED 290 10^3/uL (150-450); RED BLOOD COUNT 4.26 10^6/uL (4.00-5.40); WHITE BLOOD COUNT 6.6 10^3/uL (4.0-10.0)
[2020-03-16 16:43] LABS: ALBUMIN 3.8 GM/DL (3.2-5.2); BILIRUBIN,TOTAL 0.1 MG/DL (0.2-1.0); C REACTIVE PROTEIN QUANTITATIV 0.3 MG/DL (0.00-0.30); CALCIUM LEVEL 9.5 MG/DL (8.5-10.1); CREATININE FOR GFR 1.54 MG/DL (0.55-1.30); GLOMERULAR FILTRATION RATE 37.4 (>51); POTASSIUM SERUM 4.4 MEQ/L (3.5-5.1); TOTAL PROTEIN 8.3 GM/DL (6.4-8.2)
[2020-03-16 17:15] LABS: ERYTHROCYTE SEDIMENTATION RATE 57 mm/hr (0-30)
== END ==
LOC: M LAB 15:46
PROVIDERS: ATTEND Internal Medicine
DX: Z79.899 Other long term (current) drug therapy (principal)

== ENCOUNTER 2020-04-11 09:10 | Outpatient (CLI) | payer MEDICARE, MEDICAID ==
[~2020-04-11] VITALS: Ht 160 cm; Wt 91.7 kg
[2020-04-11] VITALS (9 sets, daily range): BP systolic 91–133; BP diastolic 51–71
[~2020-04-11 09:10] MED LIST changes: +ACETAMINOPHEN TAB 650MG DOSE (2X325MG) PO ONE; +ALBUTEROL SULFATE 2.5 MG/0.5 ML INH NEB SOLN INH PRN; +EPINEPHrine INJ 1 MG/ML 1ML AMP IM PRN; +NS 1,000 ML IV SCH; +diphenhydrAMINE 25MG CAP PO ONE; +diphenhydrAMINE 50MG/ML VIAL (J1200) IV PRN; +inFLIXimab INJECTION 300 MG in NS 220 ML IV ONE; +methylPREDNISolone 125MG 2ML VIAL IV PRN
== END 2020-04-11 12:10 | disposition home or self-care (01) ==
LOC: M INFU 09:10
PROVIDERS: ATTEND Internal Medicine
DX: K50.918 Crohn's disease, unspecified, with other complication (principal); Z88.2 Allergy status to sulfonamides
CPT/HCPCS: 96413; 96415; J1745

== ENCOUNTER 2020-06-06 08:29 | Outpatient (CLI) | payer MEDICARE, MEDICAID ==
[~2020-06-06] VITALS: Ht 160 cm; Wt 91.7 kg
[~2020-06-06 08:29] MED LIST changes: -ACETAMINOPHEN TAB 650MG DOSE (2X325MG) PO ONE; -NS 1,000 ML IV SCH; -diphenhydrAMINE 25MG CAP PO ONE; -inFLIXimab INJECTION 300 MG in NS 220 ML IV ONE
[2020-06-06] MEDS ORDERED: NS 1,000 ML IV SCH (08:30)
[2020-06-06] MEDS ORDERED: diphenhydrAMINE 25MG CAP PO ONE (08:30)
[2020-06-06] MEDS ORDERED: inFLIXimab INJECTION 300 MG in NS 220 ML IV ONE (08:30)
[2020-06-06] MEDS ORDERED: ACETAMINOPHEN TAB 650MG DOSE (2X325MG) PO ONE (08:30)
[2020-06-06 08:38] VITALS: BP 178/81
[2020-06-06 08:46] VITALS: BP 178/81
[2020-06-06 09:10] VITALS: BP 162/88
[2020-06-06 10:00] VITALS: BP 132/68
== END 2020-06-06 10:00 | disposition home or self-care (01) ==
LOC: M INFU 08:29
PROVIDERS: ATTEND Internal Medicine
DX: K50.918 Crohn's disease, unspecified, with other complication (principal); Z88.2 Allergy status to sulfonamides
CPT/HCPCS: 96413; J1745

== ENCOUNTER 2020-08-01 08:31 | Outpatient (CLI) | payer MEDICAID, MEDICARE ==
[2020-07-31 08:48] VITALS: BP 147/73
[~2020-08-01] VITALS: Ht 160 cm; Wt 93.0 kg
[~2020-08-01 08:31] MED LIST changes: +ACETAMINOPHEN TAB 650MG DOSE (2X325MG) PO ONE; +ALBUTEROL SULFATE 2.5 MG/0.5 ML INH NEB SOLN INH PRN; +EPINEPHrine INJ 1 MG/ML 1ML AMP IM PRN; +diphenhydrAMINE 25MG CAP PO ONE; +diphenhydrAMINE 50MG/ML VIAL (J1200) IV PRN; +inFLIXimab INJECTION 300 MG in NS 220 ML IV ONE; +methylPREDNISolone 125MG 2ML VIAL IV PRN
[2020-08-01 09:35] VITALS: BP 128/77
[2020-08-01 09:50] VITALS: BP 121/73
[2020-08-01 10:45] VITALS: BP 114/71
== END 2020-08-01 10:55 | disposition home or self-care (01) ==
LOC: M INFU 08:31
PROVIDERS: ATTEND Internal Medicine
DX: K50.918 Crohn's disease, unspecified, with other complication (principal); Z88.2 Allergy status to sulfonamides
CPT/HCPCS: 96413; J1745

== ENCOUNTER → 2020-08-01 | Outpatient (CLI) | payer MEDICAID, MEDICARE ==
[~2020-08-01] MED LIST changes: -ALBUTEROL SULFATE 2.5 MG/0.5 ML INH NEB SOLN INH PRN; -EPINEPHrine INJ 1 MG/ML 1ML AMP IM PRN; -diphenhydrAMINE 50MG/ML VIAL (J1200) IV PRN; -methylPREDNISolone 125MG 2ML VIAL IV PRN
[2020-08-01 12:49] LABS: BASO # 0.1 10^3/uL (0.0-0.2); BASO % 0.6 % (0.0-1.0); EOS # 0.2 10^3/uL (0.0-0.5); EOS % 2.3 % (0.0-3.0); HEMATOCRIT 38.1 % (36.0-47.0); LYMPH # 1.9 10^3/uL (1.5-5.0); LYMPH % 18.9 % (24.0-44.0); MEAN CORPUSCULAR HEMOGLOBIN 28.8 pg (27.0-33.0); MEAN CORPUSCULAR HGB CONC 31.5 g/dl (32.0-36.5); MEAN CORPUSCULAR VOLUME 91.6 fl (80.0-96.0); MONO # 0.5 10^3/uL (0.0-0.8); MONO % 5.2 % (0.0-5.0); NEUTROPHILS # 7.3 10^3/uL (1.5-8.5); NEUTROPHILS % 72.4 % (36.0-66.0); PLATELET COUNT, AUTOMATED 298 10^3/uL (150-450); RED BLOOD COUNT 4.16 10^6/uL (4.00-5.40); WHITE BLOOD COUNT 10.1 10^3/uL (4.0-10.0)
[2020-08-01 13:47] LABS: ALBUMIN 3.4 GM/DL (3.2-5.2); BILIRUBIN,TOTAL 0.3 MG/DL (0.2-1.0); C REACTIVE PROTEIN QUANTITATIV 0.44 MG/DL (0.00-0.30); CALCIUM LEVEL 9.5 MG/DL (8.5-10.1); CREATININE FOR GFR 1.7 MG/DL (0.55-1.30); GLOMERULAR FILTRATION RATE 33.3 (>51); POTASSIUM SERUM 4.9 MEQ/L (3.5-5.1); TOTAL PROTEIN 8.4 GM/DL (6.4-8.2)
[2020-08-01 13:51] LABS: ERYTHROCYTE SEDIMENTATION RATE 70 mm/hr (0-30)
== END ==
LOC: M LAB 11:16
PROVIDERS: ATTEND Internal Medicine
DX: K50.90 Crohn's disease, unspecified, without complications (principal); Z79.899 Other long term (current) drug therapy

== ENCOUNTER 2020-09-26 08:24 | Outpatient (CLI) | payer MEDICARE, MEDICAID ==
[~2020-09-26] VITALS: Ht 160 cm; Wt 95.6 kg
[~2020-09-26 08:24] MED LIST changes: -ACETAMINOPHEN TAB 650MG DOSE (2X325MG) PO ONE; -diphenhydrAMINE 25MG CAP PO ONE; -inFLIXimab INJECTION 300 MG in NS 220 ML IV ONE
[2020-09-26] MEDS ORDERED: NS 1,000 ML IV SCH (08:30)
[2020-09-26] MEDS ORDERED: inFLIXimab INJECTION 300 MG in NS 220 ML IV ONE (08:30)
[2020-09-26] MEDS ORDERED: ACETAMINOPHEN TAB 650MG DOSE (2X325MG) PO ONE (08:30)
[2020-09-26] MEDS ORDERED: diphenhydrAMINE 25MG CAP PO ONE (08:30)
[2020-09-26 08:35] VITALS: BP 117/82
[2020-09-26 09:20] VITALS: BP 134/74
[2020-09-26 10:25] VITALS: BP 130/74
== END 2020-09-26 10:25 | disposition home or self-care (01) ==
LOC: M INFU 08:24
PROVIDERS: ATTEND Internal Medicine
DX: K50.918 Crohn's disease, unspecified, with other complication (principal); Z88.2 Allergy status to sulfonamides
CPT/HCPCS: 96413; J1745

== ENCOUNTER 2020-11-07 10:37 | Outpatient (CLI) | payer MEDICARE, MEDICAID ==
[~2020-11-07] VITALS: Ht 160 cm; Wt 95.6 kg
[~2020-11-07 10:37] MED LIST changes: +ALBUTEROL SULFATE 2.5 MG/0.5 ML INH NEB SOLN INH PRN; +EPINEPHrine INJ 1 MG/ML 1ML AMP IM PRN; +diphenhydrAMINE 50MG/ML VIAL (J1200) IV PRN; +methylPREDNISolone 125MG 2ML VIAL IV PRN
[2020-11-07 10:40] VITALS: BP 167/84
[2020-11-07] MEDS ORDERED: inFLIXimab INJECTION 300 MG in NS 220 ML IV ONE (11:00)
[2020-11-07] MEDS ORDERED: ACETAMINOPHEN 650MG PO PRIOR TO INFUSION PO ONE (11:00)
[2020-11-07] MEDS ORDERED: NS 1,000 ML IV SCH (11:00)
[2020-11-07] MEDS ORDERED: diphenhydrAMINE 25MG CAP PO ONE (11:05)
[2020-11-07 12:00] VITALS: BP 140/66
[2020-11-07 13:10] VITALS: BP 124/60
[2020-11-07 14:22] LABS: BASO # 0.1 10^3/uL (0.0-0.2); BASO % 0.7 % (0.0-1.0); EOS # 0.4 10^3/uL (0.0-0.5); EOS % 3.1 % (0.0-3.0); HEMATOCRIT 35.2 % (36.0-47.0); LYMPH # 2.3 10^3/uL (1.5-5.0); LYMPH % 18.5 % (24.0-44.0); MEAN CORPUSCULAR HEMOGLOBIN 27.6 pg (27.0-33.0); MEAN CORPUSCULAR HGB CONC 31.3 g/dl (32.0-36.5); MEAN CORPUSCULAR VOLUME 88.2 fl (80.0-96.0); MONO # 0.5 10^3/uL (0.0-0.8); MONO % 4.4 % (2.0-8.0); NEUTROPHILS # 8.9 10^3/uL (1.5-8.5); NEUTROPHILS % 72.7 % (36.0-66.0); PLATELET COUNT, AUTOMATED 303 10^3/uL (150-450); RED BLOOD COUNT 3.99 10^6/uL (4.00-5.40); WHITE BLOOD COUNT 12.2 10^3/uL (4.0-10.0)
[2020-11-07 14:54] LABS: ALBUMIN 3.1 GM/DL (3.2-5.2); BILIRUBIN,TOTAL 0.1 MG/DL (0.2-1.0); C REACTIVE PROTEIN QUANTITATIV 1.26 MG/DL (0.00-0.30); CALCIUM LEVEL 8.8 MG/DL (8.5-10.1); CREATININE FOR GFR 1.62 MG/DL (0.55-1.30); GLOMERULAR FILTRATION RATE 35.1 (>51); POTASSIUM SERUM 4.4 MEQ/L (3.5-5.1); TOTAL PROTEIN 8.4 GM/DL (6.4-8.2)
[2020-11-07 15:01] LABS: ERYTHROCYTE SEDIMENTATION RATE 106 mm/hr (0-30)
== END 2020-11-07 13:10 | disposition home or self-care (01) ==
LOC: M INFU 10:37
PROVIDERS: ATTEND Internal Medicine
DX: K50.918 Crohn's disease, unspecified, with other complication (principal); Z88.2 Allergy status to sulfonamides

== ENCOUNTER → 2020-11-07 | Outpatient (CLI) | payer MEDICARE, MEDICAID ==
[~2020-11-07] MED LIST changes: -ALBUTEROL SULFATE 2.5 MG/0.5 ML INH NEB SOLN INH PRN; -EPINEPHrine INJ 1 MG/ML 1ML AMP IM PRN; -diphenhydrAMINE 50MG/ML VIAL (J1200) IV PRN; -methylPREDNISolone 125MG 2ML VIAL IV PRN
[2020-11-07 14:22] LABS: BASO # 0.1 10^3/uL (0.0-0.2); BASO % 0.6 % (0.0-1.0); EOS # 0.4 10^3/uL (0.0-0.5); EOS % 3.1 % (0.0-3.0); HEMATOCRIT 34.9 % (36.0-47.0); HEMOGLOBIN 10.7 g/dl (12.0-15.5); LYMPH # 2.4 10^3/uL (1.5-5.0); LYMPH % 19.1 % (24.0-44.0); MEAN CORPUSCULAR HEMOGLOBIN 27.2 pg (27.0-33.0); MEAN CORPUSCULAR HGB CONC 30.7 g/dl (32.0-36.5); MEAN CORPUSCULAR VOLUME 88.6 fl (80.0-96.0); MONO # 0.5 10^3/uL (0.0-0.8); MONO % 3.9 % (2.0-8.0); NEUTROPHILS # 9.3 10^3/uL (1.5-8.5); NEUTROPHILS % 72.9 % (36.0-66.0); PLATELET COUNT, AUTOMATED 289 10^3/uL (150-450); RED BLOOD COUNT 3.94 10^6/uL (4.00-5.40); WHITE BLOOD COUNT 12.7 10^3/uL (4.0-10.0)
[2020-11-07 14:58] LABS: ALBUMIN 3.1 GM/DL (3.2-5.2); BILIRUBIN,TOTAL 0.2 MG/DL (0.2-1.0); C REACTIVE PROTEIN QUANTITATIV 1.29 MG/DL (0.00-0.30); CREATININE FOR GFR 1.67 MG/DL (0.55-1.30); GLOMERULAR FILTRATION RATE 33.9 (>51); POTASSIUM SERUM 4.3 MEQ/L (3.5-5.1); TOTAL PROTEIN 8.5 GM/DL (6.4-8.2)
== END ==
LOC: M LAB 13:25
PROVIDERS: ATTEND Internal Medicine Gastroenterology
DX: K50.918 Crohn's disease, unspecified, with other complication (principal); Z88.2 Allergy status to sulfonamides
CPT/HCPCS: 36415; 80053; 85025; 85652; 86140; 96413; J1745

== ENCOUNTER → 2020-11-17 | Outpatient (CLI) | payer MEDICARE, MEDICAID ==
[~2020-11-17] MED LIST changes: -ALBUTEROL SULFATE 2.5 MG/0.5 ML INH NEB SOLN INH PRN; -EPINEPHrine INJ 1 MG/ML 1ML AMP IM PRN; -diphenhydrAMINE 50MG/ML VIAL (J1200) IV PRN; -methylPREDNISolone 125MG 2ML VIAL IV PRN
[2020-11-17 09:37] LABS: BASO # 0.1 10^3/uL (0.0-0.2); BASO % 0.8 % (0.0-1.0); EOS # 0.3 10^3/uL (0.0-0.5); EOS % 2.3 % (0.0-3.0); HEMATOCRIT 39.7 % (36.0-47.0); LYMPH # 4.2 10^3/uL (1.5-5.0); LYMPH % 37.2 % (24.0-44.0); MEAN CORPUSCULAR HEMOGLOBIN 26.9 pg (27.0-33.0); MEAN CORPUSCULAR HGB CONC 30.2 g/dl (32.0-36.5); MONO # 0.7 10^3/uL (0.0-0.8); MONO % 5.9 % (2.0-8.0); NEUTROPHILS % 53.4 % (36.0-66.0); PLATELET COUNT, AUTOMATED 305 10^3/uL (150-450); RED BLOOD COUNT 4.46 10^6/uL (4.00-5.40); WHITE BLOOD COUNT 11.3 10^3/uL (4.0-10.0)
[2020-11-17 10:13] LABS: ALBUMIN 3.5 GM/DL (3.2-5.2); BILIRUBIN,TOTAL 0.1 MG/DL (0.2-1.0); CALCIUM LEVEL 9.6 MG/DL (8.5-10.1); CHOLESTEROL RISK RATIO 4.259 (<5); CREATININE FOR GFR 1.49 MG/DL (0.55-1.30); GLOMERULAR FILTRATION RATE 38.7 (>51); MAGNESIUM LEVEL 2.1 MG/DL (1.8-2.4); POTASSIUM SERUM 4.4 MEQ/L (3.5-5.1); THYROID STIMULATING HORMONE 3.2 uIU/ML (0.358-3.740); TOTAL PROTEIN 9.4 GM/DL (6.4-8.2)
[2020-11-17 10:43] LABS: HEMOGLOBIN A1c 6.7 %
== END ==
LOC: M LAB 07:20
PROVIDERS: ATTEND Nurse Practitioner Adult Health
DX: E78.2 Mixed hyperlipidemia (principal)

== ENCOUNTER → 2020-11-17 | Outpatient (CLI) | payer MEDICAID, MEDICARE ==
[~2020-11-17] MED LIST changes: +E-Z-GAS II EFFERVESCENT PACKET (SODIUM BICARB./CITRIC ACID/SIMETHICONE) As Ordered ONE; +E-Z-HD 98% w/w 340GM SUSP BTL As Ordered ONE; +E-Z-PAQUE 96% w/w SUSP 176GM BTL As Ordered ONE
--- NOTE | 2020-11-17 17:20 | REP ---
INDICATION: ENTERITIS. COMPARISON: 01/27/2013. TECHNIQUE: This procedure was performed by Lacey Guo [facility], under the direct supervision of Dr. Amezcua. Images were reviewed with Dr. Amezcua prior to dictation. Liquid barium and gas producing crystals were given in the erect position, as well as liquid barium in the prone oblique position in order to perform a double contrast upper GI examination. Additionally liquid barium was given at the end of the examination in order to perform a small-bowel follow-through. FINDINGS: The snowmaker film shows no organomegaly or pathological masses. The intestinal gas pattern is unremarkable. There are multiple surgical clips in the patient's abdomen. The patient is status post colectomy with a mid right abdominal ileostomy. The oral and pharyngeal stages of deglutition were unremarkable. However laryngeal penetration was visualized. Esophageal transport is prompt and efficient and there is no evidence of esophagitis, stricture, or mucosal ring. There is no evidence of a hiatal hernia. Gastroesophageal reflux to the level of the thoracic inlet was visualized.. The stomach tirado are normally outlined. The rugal folds are smooth and regular. There is no gastritis, neoplasm, or ulcerative disease. The duodenal tirado are normally outlined. The mucosal folds are smooth and regular. There is no duodenitis, peptic ulcer disease or neoplasm. The visualized portion of the proximal small bowel appears normal in course and caliber. The barium column was followed through the small bowel to the level of the ileostomy. Small bowel transit time is approximately 200 minutes. The small bowel mucosal pattern is normal in course and caliber. There is no transition to suggest a partial small bowel obstruction. IMPRESSION: 1. Laryngeal penetration. 2. Gastroesophageal reflux to the level of the thoracic inlet. 0.6 minutes of fluoroscopy time was utilized for this procedure. Some fluoroscopic images are performed with last image hold technology. These images require no additional radiation. <Electronically signed by Lacey Guo > 11/17/20 1600 <Electronically signed by Humberto Amezcua > 11/17/20 4182
== END ==
LOC: M RAD 07:22
PROVIDERS: ATTEND Internal Medicine Gastroenterology
DX: K52.9 Noninfective gastroenteritis and colitis, unspecified (principal)

== ENCOUNTER 2020-12-19 08:45 | Outpatient (CLI) | payer MEDICAID, MEDICARE ==
[~2020-12-19 08:45] MED LIST changes: -E-Z-GAS II EFFERVESCENT PACKET (SODIUM BICARB./CITRIC ACID/SIMETHICONE) As Ordered ONE; -E-Z-HD 98% w/w 340GM SUSP BTL As Ordered ONE; -E-Z-PAQUE 96% w/w SUSP 176GM BTL As Ordered ONE
[2020-12-19 09:00] VITALS: BP 179/90
[2020-12-19] MEDS ORDERED: EPINEPHrine INJ 1 MG/ML 1ML AMP IM PRN (09:00)
[2020-12-19] MEDS ORDERED: NS 1,000 ML IV SCH (09:00)
[2020-12-19] MEDS ORDERED: diphenhydrAMINE 50MG/ML VIAL (J1200) IV PRN (09:00)
[2020-12-19] MEDS ORDERED: inFLIXimab INJECTION 500 MG in NS 200 ML IV ONE (09:00)
[2020-12-19] MEDS ORDERED: methylPREDNISolone 125MG 2ML VIAL IV PRN (09:00)
[2020-12-19] MEDS ORDERED: ALBUTEROL SULFATE 2.5 MG/0.5 ML INH NEB SOLN INH PRN (09:00)
[2020-12-19] MEDS ORDERED: diphenhydrAMINE 25MG CAP PO ONE (09:00)
[2020-12-19] MEDS ORDERED: ACETAMINOPHEN 650MG PO PRIOR TO INFUSION PO ONE (09:00)
[2020-12-19 09:30] VITALS: BP 171/84
[2020-12-19 09:45] VITALS: BP 168/70
[2020-12-19 10:35] VITALS: BP 141/77
== END 2020-12-19 10:36 | disposition home or self-care (01) ==
LOC: M INFU 08:45
PROVIDERS: ATTEND Dermatology
DX: K50.918 Crohn's disease, unspecified, with other complication (principal); Z88.2 Allergy status to sulfonamides
CPT/HCPCS: 96413; J1745

== ENCOUNTER 2021-01-30 08:46 | Outpatient (CLI) | payer MEDICARE, MEDICAID ==
[~2021-01-30] VITALS: Ht 160 cm; Wt 93.0 kg
[~2021-01-30 08:46] MED LIST changes: +ACETAMINOPHEN 650MG PO PRIOR TO INFUSION PO ONE; +NS 1,000 ML IV SCH; +diphenhydrAMINE 25MG PO PRIOR TO INFUSION PO ONE; +inFLIXimab INJECTION 500 MG in NS 200 ML IV ONE
[2021-01-30 08:50] VITALS: BP 170/80
[2021-01-30 09:30] VITALS: BP 158/81
[2021-01-30 10:20] VITALS: BP 172/68
== END 2021-01-30 09:35 | disposition home or self-care (01) ==
LOC: M INFU 08:46
PROVIDERS: ATTEND Internal Medicine
DX: K50.90 Crohn's disease, unspecified, without complications (principal); Z88.2 Allergy status to sulfonamides
CPT/HCPCS: 96413; J1745

== ENCOUNTER → 2021-02-13 | Outpatient (CLI) | payer MEDICARE, MEDICAID ==
[~2021-02-13] MED LIST changes: -ACETAMINOPHEN 650MG PO PRIOR TO INFUSION PO ONE; -NS 1,000 ML IV SCH; -diphenhydrAMINE 25MG PO PRIOR TO INFUSION PO ONE; -inFLIXimab INJECTION 500 MG in NS 200 ML IV ONE
--- NOTE | 2021-02-13 13:40 | REPMRS ---
Patient History The patient states she has not had a clinical breast exam in over a year. Family history of unknown cancer at age 50 in father. Took hormonal contraceptives for 11 years. Patient states no breast complaints today. Patient has signed MRS History Sheet. Digital Woman Screen Mammo: February 13, 2021 - Exam #: [id number] Bilateral CC and MLO view(s) were taken. Technologist: Aarti Luis, Technologist Prior study comparison: February 12, 2020, bilateral digital woman screen mammo performed at [facility]. October 30, 2018, bilateral digital mammo screening bilat, performed at [facility]. FINDINGS: There are scattered fibroglandular densities. Screening. Digital screening (2D) mammography was performed bilaterally in the CC and MLO projections. Additionally, breast tomosynthesis (3D mammography) was performed bilaterally in the CC and MLO projections. Todays exam was compared to the prior exam/exams. By history, the patient has no complaints of a palpable breast abnormality or other significant breast complaints. The breasts are unchanged in size and shape. There are no bree-soft tissue densities or spiculated masses. There is no internal architectural distortion. There are no suspicious bree-calcific clusters. Skin thickening or nipple retraction is not present. IMPRESSION: BI-RADS Category 2- Benign Findings. There is no evidence of malignant alteration of the breasts. Followup examination recommended in one year. The Volpara volumetric breast density category is B, there are scattered areas of fibroglandular densities. This mammogram was read with the assistance of Soldsie,an FDA approved computer aided detection system for mammography. The lifetime Tyrer-Cuzick score is 8.9 % Negative x-ray reports should not delay surgical consultation if a dominant or clinically suspicious mass is present. Not all breast cancers can be identified by mammography. Therefore, we recommend that you continue to perform regular breast self-examination and physical examination and then promptly contact your physician of any concerns or changes. Adenosis and dense breasts may obscure an underlying neoplasm. Assessment: BI-RADS/ACR category 2 mammogram. Benign Findings. Recommendation Routine screening mammogram of both breasts in 1 year. Electronically Signed By: Tylor Juarez DO 02/13/21 7779
== END ==
LOC: M WHC 12:50
PROVIDERS: ATTEND Nurse Practitioner Family
DX: Z12.31 Encounter for screening mammogram for malignant neoplasm of breast (principal)

== ENCOUNTER → 2021-02-14 | Outpatient (REF) | payer MEDICARE, MEDICAID ==
[~2021-02-14] MED LIST changes: +FURO20TA2 PO; -KLOR10TA76 PO; +POTA-136 PO; +VASC1CAP2 PO
== END ==
LOC: M LAB REF 12:45
PROVIDERS: ATTEND Nurse Practitioner Family
DX: E83.42 Hypomagnesemia (principal)

== ENCOUNTER 2021-03-13 13:27 | Outpatient (CLI) | payer MEDICARE, MEDICAID ==
[~2021-03-13] VITALS: Ht 160 cm; Wt 93.0 kg
[~2021-03-13 13:27] MED LIST changes: +ACETAMINOPHEN 650MG PO PRIOR TO INFUSION PO ONE; +ALBUTEROL SULFATE 2.5 MG/0.5 ML INH NEB SOLN INH PRN; +EPINEPHrine INJ 1 MG/ML 1ML AMP IM PRN; -FURO20TA2 PO; +KLOR10TA76 PO; +NS 1,000 ML IV SCH; -POTA-136 PO; -VASC1CAP2 PO; +diphenhydrAMINE 25MG PO PRIOR TO INFUSION PO ONE; +diphenhydrAMINE 50MG/ML VIAL (J1200) IV PRN; +inFLIXimab INJECTION 500 MG in NS 200 ML IV ONE; +methylPREDNISolone 125MG 2ML VIAL IV PRN
[2021-03-13 13:30] VITALS: BP 118/65
[2021-03-13] MEDS ORDERED: methylPREDNISolone 125MG 2ML VIAL IV PRN (13:30)
[2021-03-13] MEDS ORDERED: ALBUTEROL SULFATE 2.5 MG/0.5 ML INH NEB SOLN INH PRN (13:30)
[2021-03-13] MEDS ORDERED: EPINEPHrine INJ 1 MG/ML 1ML AMP IM PRN (13:30)
[2021-03-13] MEDS ORDERED: diphenhydrAMINE 50MG/ML VIAL (J1200) IV PRN (13:30)
[2021-03-13] MEDS ORDERED: inFLIXimab INJECTION 500 MG in NS 200 ML IV ONE (13:30)
[2021-03-13 14:00] VITALS: BP 118/65
[2021-03-13 14:50] VITALS: BP 121/57
[2021-03-13 15:35] VITALS: BP 140/64
== END 2021-03-13 15:15 | disposition home or self-care (01) ==
LOC: M INFU 13:27
PROVIDERS: ATTEND Dermatology
DX: K50.918 Crohn's disease, unspecified, with other complication (principal); Z88.2 Allergy status to sulfonamides; Z88.8 Allergy status to other drugs, medicaments and biological substances
CPT/HCPCS: 96413; J1745

== ENCOUNTER → 2021-04-17 | Outpatient (REF) | payer MEDICARE, MEDICAID ==
[~2021-04-17] MED LIST changes: -ACETAMINOPHEN 650MG PO PRIOR TO INFUSION PO ONE; -ALBUTEROL SULFATE 2.5 MG/0.5 ML INH NEB SOLN INH PRN; -EPINEPHrine INJ 1 MG/ML 1ML AMP IM PRN; -KLOR10TA76 PO; -NS 1,000 ML IV SCH; +POTA-136 PO; -diphenhydrAMINE 25MG PO PRIOR TO INFUSION PO ONE; -diphenhydrAMINE 50MG/ML VIAL (J1200) IV PRN; -inFLIXimab INJECTION 500 MG in NS 200 ML IV ONE; -methylPREDNISolone 125MG 2ML VIAL IV PRN
[2021-04-17 14:01] LABS: BASO # 0.1 10^3/uL (0.0-0.2); BASO % 0.6 % (0.0-1.0); EOS # 0.5 10^3/uL (0.0-0.5); EOS % 4.3 % (0.0-3.0); HEMATOCRIT 38.6 % (36.0-47.0); HEMOGLOBIN 12.1 g/dl (12.0-15.5); LYMPH # 3.4 10^3/uL (1.5-5.0); LYMPH % 32.8 % (24.0-44.0); MEAN CORPUSCULAR HEMOGLOBIN 28.7 pg (27.0-33.0); MEAN CORPUSCULAR HGB CONC 31.3 g/dl (32.0-36.5); MEAN CORPUSCULAR VOLUME 91.5 fl (80.0-96.0); MONO # 0.7 10^3/uL (0.0-0.8); MONO % 6.7 % (2.0-8.0); NEUTROPHILS # 5.8 10^3/uL (1.5-8.5); NEUTROPHILS % 55.3 % (36.0-66.0); PLATELET COUNT, AUTOMATED 259 10^3/uL (150-450); RED BLOOD COUNT 4.22 10^6/uL (4.00-5.40); WHITE BLOOD COUNT 10.4 10^3/uL (4.0-10.0)
[2021-04-17 15:10] LABS: HEMOGLOBIN A1c 6.6 %; THYROID STIMULATING HORMONE 2.57 uIU/ML (0.358-3.740)
== END ==
LOC: M LABDRWAD 12:39
DX: Z79.899 Other long term (current) drug therapy (principal)

== ENCOUNTER → 2021-04-17 | Outpatient (REF) | payer MEDICARE, MEDICAID ==
[2021-04-17 14:14] LABS: BASO # 0.1 10^3/uL (0.0-0.2); BASO % 0.7 % (0.0-1.0); EOS # 0.5 10^3/uL (0.0-0.5); EOS % 4.6 % (0.0-3.0); HEMATOCRIT 38.7 % (36.0-47.0); HEMOGLOBIN 12.3 g/dl (12.0-15.5); LYMPH # 3.3 10^3/uL (1.5-5.0); LYMPH % 32.5 % (24.0-44.0); MEAN CORPUSCULAR HEMOGLOBIN 29.1 pg (27.0-33.0); MEAN CORPUSCULAR HGB CONC 31.8 g/dl (32.0-36.5); MEAN CORPUSCULAR VOLUME 91.7 fl (80.0-96.0); MONO # 0.7 10^3/uL (0.0-0.8); MONO % 6.5 % (2.0-8.0); NEUTROPHILS # 5.7 10^3/uL (1.5-8.5); NEUTROPHILS % 55.4 % (36.0-66.0); PLATELET COUNT, AUTOMATED 256 10^3/uL (150-450); RED BLOOD COUNT 4.22 10^6/uL (4.00-5.40); WHITE BLOOD COUNT 10.2 10^3/uL (4.0-10.0)
[2021-04-17 14:57] LABS: ALBUMIN 3.2 GM/DL (3.2-5.2); BILIRUBIN,TOTAL 0.2 MG/DL (0.2-1.0); CALCIUM LEVEL 9.9 MG/DL (8.5-10.1); CHOLESTEROL RISK RATIO 3.879 (<5); CREATININE FOR GFR 1.59 MG/DL (0.55-1.30); GLOMERULAR FILTRATION RATE 35.9 (>51); THYROID STIMULATING HORMONE 2.57 uIU/ML (0.358-3.740); TOTAL 25(OH) VITAMIN D 69.8 NG/ML (30.0-100.0); TOTAL PROTEIN 7.9 GM/DL (6.4-8.2)
[2021-04-17 15:11] LABS: HEMOGLOBIN A1c 6.6 %
== END ==
LOC: M LABDRWAD 12:37
PROVIDERS: ATTEND Nurse Practitioner Family
DX: E78.00 Pure hypercholesterolemia, unspecified (principal)

== ENCOUNTER 2021-04-24 10:14 | Outpatient (CLI) | payer MEDICARE, MEDICAID ==
[~2021-04-24] VITALS: Ht 160 cm; Wt 93.0 kg
[2021-04-24 08:20] VITALS: BP 168/81
[2021-04-24] MEDS ORDERED: diphenhydrAMINE 25MG PO PRIOR TO INFUSION PO ONE (10:30)
[2021-04-24] MEDS ORDERED: ACETAMINOPHEN 650MG PO PRIOR TO INFUSION PO ONE (10:30)
[2021-04-24] MEDS ORDERED: inFLIXimab INJECTION 500 MG in NS 200 ML IV ONE (10:30)
[2021-04-24] MEDS ORDERED: NS 1,000 ML IV SCH (10:30)
[2021-04-24 10:45] VITALS: BP 168/81
[2021-04-24 11:15] VITALS: BP 155/75
[2021-04-24 12:10] VITALS: BP 142/84
== END 2021-04-24 12:10 | disposition home or self-care (01) ==
LOC: M INFU 10:14
PROVIDERS: ATTEND Dermatology
DX: K50.90 Crohn's disease, unspecified, without complications (principal); Z88.2 Allergy status to sulfonamides; Z88.8 Allergy status to other drugs, medicaments and biological substances
CPT/HCPCS: 96413; J1745

== ENCOUNTER 2021-06-05 10:40 | Outpatient (CLI) | payer MEDICARE, MEDICAID ==
[~2021-06-05] VITALS: Ht 160 cm; Wt 93.0 kg
[~2021-06-05 10:40] MED LIST changes: +ACETAMINOPHEN 650MG PO PRIOR TO INFUSION PO ONE; +INFLIXIMAB IV ONE; +NS 1,000 ML IV SCH; +NS IV ONE; +diphenhydrAMINE 25MG PO PRIOR TO INFUSION PO ONE
[2021-06-05 10:45] VITALS: BP 139/83
[2021-06-05 11:54] VITALS: BP 139/83
[2021-06-05 12:00] VITALS: BP 133/77
[2021-06-05 13:00] VITALS: BP 143/82
== END 2021-06-05 13:00 | disposition home or self-care (01) ==
LOC: M INFU 10:40
PROVIDERS: ATTEND Internal Medicine Gastroenterology
DX: K50.90 Crohn's disease, unspecified, without complications (principal); Z88.2 Allergy status to sulfonamides; Z88.9 Allergy status to unspecified drugs, medicaments and biological substances
CPT/HCPCS: 96413; J1745

== ENCOUNTER 2021-07-17 10:42 | Outpatient (CLI) | payer MEDICARE, MEDICAID ==
[~2021-07-17] VITALS: Ht 160 cm; Wt 103.0 kg
[2021-07-17 10:45] VITALS: BP 138/88
[2021-07-17 11:45] VITALS: BP 159/80
[2021-07-17 12:28] VITALS: BP 148/88
== END 2021-07-17 12:48 | disposition home or self-care (01) ==
LOC: M INFU 10:42
PROVIDERS: ATTEND Internal Medicine Gastroenterology
DX: K50.90 Crohn's disease, unspecified, without complications (principal); Z88.2 Allergy status to sulfonamides
CPT/HCPCS: 96413; J1745

== ENCOUNTER → 2021-07-24 | Outpatient (REF) | payer MEDICARE, MEDICAID ==
[~2021-07-24] MED LIST changes: -ACETAMINOPHEN 650MG PO PRIOR TO INFUSION PO ONE; -INFLIXIMAB IV ONE; -NS 1,000 ML IV SCH; -NS IV ONE; -diphenhydrAMINE 25MG PO PRIOR TO INFUSION PO ONE
== END ==
LOC: M LAB REF 16:56
PROVIDERS: ATTEND Nurse Practitioner Family
DX: E83.42 Hypomagnesemia (principal)

== ENCOUNTER → 2021-08-01 | Outpatient (REF) | payer MEDICARE, MEDICAID | LOC: M LABDRWAD 15:56 | PROVIDERS: ATTEND Internal Medicine Gastroenterology | DX: K50.918 Crohn's disease, unspecified, with other complication (principal) ==

== ENCOUNTER 2021-08-28 09:46 | Outpatient (CLI) | payer MEDICARE, MEDICAID ==
[~2021-08-28] VITALS: Ht 160 cm; Wt 102.0 kg
[2021-08-28 09:45] VITALS: BP 120/71
[2021-08-28] MEDS ORDERED: ACETAMINOPHEN 650MG PO PRIOR TO INFUSION PO ONE (10:00)
[2021-08-28] MEDS ORDERED: NS 1,000 ML IV SCH (10:00)
[2021-08-28] MEDS ORDERED: diphenhydrAMINE 25MG PO PRIOR TO INFUSION PO ONE (10:00)
[2021-08-28] MEDS ORDERED: NS IV ONE (10:00)
[2021-08-28] MEDS ORDERED: INFLIXIMAB IV ONE (10:00)
[2021-08-28] MEDS ORDERED: VASC1CAP2 PO (10:17)
[2021-08-28] MEDS ORDERED: FURO20TA2 PO (10:18)
[2021-08-28 10:33] VITALS: BP 120/71
[2021-08-28 12:00] VITALS: BP 124/76
[2021-08-28 13:00] VITALS: BP 134/81
== END 2021-08-28 13:00 | disposition home or self-care (01) ==
LOC: M INFU 09:46
PROVIDERS: ATTEND Internal Medicine Gastroenterology
DX: K50.90 Crohn's disease, unspecified, without complications (principal); Z88.2 Allergy status to sulfonamides
CPT/HCPCS: 96413; 96415; J1745

== ENCOUNTER 2021-10-09 09:44 | Outpatient (CLI) | payer MEDICARE, MEDICAID ==
[~2021-10-09] VITALS: Ht 162.6 cm; Wt 103.0 kg
[~2021-10-09 09:44] MED LIST changes: -FENO134C PO; +FENO134C16 PO; +FURO20TA2 PO; +VASC1CAP2 PO
[2021-10-09 10:00] VITALS: BP 169/91
[2021-10-09] MEDS ORDERED: NS IV ONE (10:00)
[2021-10-09] MEDS ORDERED: NS 1,000 ML IV SCH (10:00)
[2021-10-09] MEDS ORDERED: INFLIXIMAB IV ONE (10:00)
[2021-10-09] MEDS ORDERED: diphenhydrAMINE 25MG PO PRIOR TO INFUSION PO ONE (10:00)
[2021-10-09] MEDS ORDERED: ACETAMINOPHEN 650MG PO PRIOR TO INFUSION PO ONE (10:00)
[2021-10-09 11:33] VITALS: BP 137/80
== END 2021-10-09 11:30 | disposition home or self-care (01) ==
LOC: M INFU 09:44
PROVIDERS: ATTEND Internal Medicine Gastroenterology
DX: K50.90 Crohn's disease, unspecified, without complications (principal); Z88.2 Allergy status to sulfonamides; Z88.8 Allergy status to other drugs, medicaments and biological substances
CPT/HCPCS: 96413; J1745

== ENCOUNTER 2021-11-20 10:22 | Outpatient (CLI) | payer MEDICARE, MEDICAID ==
[~2021-11-20] VITALS: Ht 160 cm; Wt 102.0 kg
[~2021-11-20 10:22] MED LIST changes: +ACETAMINOPHEN 650MG PO PRIOR TO INFUSION PO ONE; +INFLIXIMAB IV ONE; +NS 1,000 ML IV SCH; +NS IV ONE; +diphenhydrAMINE 25MG PO PRIOR TO INFUSION PO ONE
[2021-11-20 10:25] VITALS: BP 181/90
[2021-11-20 11:30] VITALS: BP 159/79
[2021-11-20 11:31] VITALS: BP 159/79
[2021-11-20 11:55] VITALS: BP 133/72
[2021-11-20 12:49] VITALS: BP 141/71
== END 2021-11-20 12:50 | disposition home or self-care (01) ==
LOC: M INFU 10:22
PROVIDERS: ATTEND Internal Medicine Gastroenterology
DX: K50.90 Crohn's disease, unspecified, without complications (principal); Z88.2 Allergy status to sulfonamides; Z88.8 Allergy status to other drugs, medicaments and biological substances
CPT/HCPCS: 96413; J1745

== ENCOUNTER 2022-01-01 09:50 | Outpatient (CLI) | payer MEDICARE, MEDICAID ==
[~2022-01-01] VITALS: Ht 161.3 cm; Wt 103.0 kg
[~2022-01-01 09:50] MED LIST changes: -ACETAMINOPHEN 650MG PO PRIOR TO INFUSION PO ONE; -INFLIXIMAB IV ONE; -NS 1,000 ML IV SCH; -NS IV ONE; -diphenhydrAMINE 25MG PO PRIOR TO INFUSION PO ONE
[2022-01-01] MEDS ORDERED: NS 1,000 ML IV SCH (10:00)
[2022-01-01] MEDS ORDERED: NS IV ONE (10:00)
[2022-01-01] MEDS ORDERED: INFLIXIMAB IV ONE (10:00)
[2022-01-01] MEDS ORDERED: diphenhydrAMINE 25MG PO PRIOR TO INFUSION PO ONE (10:00)
[2022-01-01] MEDS ORDERED: ACETAMINOPHEN TAB 650MG DOSE (2X325MG) PO ONE (10:10)
[2022-01-01 10:30] VITALS: BP 168/93
[2022-01-01 10:45] VITALS: BP 160/78
[2022-01-01 11:42] VITALS: BP 174/92
== END 2022-01-01 11:45 | disposition home or self-care (01) ==
LOC: M INFU 09:50
PROVIDERS: ATTEND Internal Medicine Gastroenterology
DX: K50.90 Crohn's disease, unspecified, without complications (principal); Z88.2 Allergy status to sulfonamides; Z88.8 Allergy status to other drugs, medicaments and biological substances
CPT/HCPCS: 96413; J1745

== ENCOUNTER → 2022-01-18 | Outpatient (CLI) | payer MEDICARE, MEDICAID ==
[2022-01-18 14:15] LABS: BASO # 0.1 10^3/uL (0.0-0.2); BASO % 0.9 % (0.0-1.0); EOS # 0.2 10^3/uL (0.0-0.5); EOS % 2.6 % (0.0-3.0); HEMATOCRIT 39.9 % (36.0-47.0); HEMOGLOBIN 12.9 g/dl (12.0-15.5); LYMPH # 3.5 10^3/uL (1.5-5.0); LYMPH % 38.8 % (24.0-44.0); MEAN CORPUSCULAR HEMOGLOBIN 29.1 pg (27.0-33.0); MEAN CORPUSCULAR HGB CONC 32.3 g/dl (32.0-36.5); MEAN CORPUSCULAR VOLUME 89.9 fl (80.0-96.0); MONO # 0.5 10^3/uL (0.0-0.8); MONO % 5.8 % (2.0-8.0); NEUTROPHILS # 4.6 10^3/uL (1.5-8.5); NEUTROPHILS % 51.6 % (36.0-66.0); PLATELET COUNT, AUTOMATED 254 10^3/uL (150-450); RED BLOOD COUNT 4.44 10^6/uL (4.00-5.40); WHITE BLOOD COUNT 8.9 10^3/uL (4.0-10.0)
[2022-01-18 14:34] LABS: HEMOGLOBIN A1c 10.1 %
[2022-01-18 14:51] LABS: ALBUMIN 3.5 GM/DL (3.2-5.2); BILIRUBIN,TOTAL 0.3 MG/DL (0.2-1.0); CALCIUM LEVEL 9.5 MG/DL (8.5-10.1); CHOLESTEROL RISK RATIO 3.671 (<5); CREATININE FOR GFR 1.51 MG/DL (0.55-1.30); GLOMERULAR FILTRATION RATE 37.9 (>51); POTASSIUM SERUM 4.4 MEQ/L (3.5-5.1); THYROID STIMULATING HORMONE 1.62 uIU/ML (0.358-3.740); TOTAL PROTEIN 8.5 GM/DL (6.4-8.2)
[2022-01-18 15:06] LABS: TOTAL 25(OH) VITAMIN D 69.8 NG/ML (30.0-100.0)
== END ==
LOC: M LAB 13:17
PROVIDERS: ATTEND Nurse Practitioner Family
DX: K50.918 Crohn's disease, unspecified, with other complication (principal); E78.00 Pure hypercholesterolemia, unspecified; D51.8 Other vitamin B12 deficiency anemias; E55.9 Vitamin D deficiency, unspecified; Z79.899 Other long term (current) drug therapy

== ENCOUNTER → 2022-01-18 | Outpatient (CLI) | payer MEDICARE, MEDICAID | LOC: M LAB 13:14 | PROVIDERS: ATTEND Dermatology | DX: K50.918 Crohn's disease, unspecified, with other complication (principal) ==

== ENCOUNTER 2022-02-12 10:00 | Outpatient (CLI) | payer MEDICARE, MEDICAID ==
[~2022-02-12] VITALS: Ht 160 cm; Wt 99.1 kg
[~2022-02-12 10:00] MED LIST changes: +ACETAMINOPHEN 650MG PO PRIOR TO INFUSION PO ONE; +INFLIXIMAB IV ONE; +NS 1,000 ML IV SCH; +NS IV ONE; +diphenhydrAMINE 25MG PO PRIOR TO INFUSION PO ONE
[2022-02-12 10:15] VITALS: BP 132/81
[2022-02-12 11:15] VITALS: BP 134/66
[2022-02-12 12:20] VITALS: BP 138/84
== END 2022-02-12 12:20 | disposition home or self-care (01) ==
LOC: M INFU 10:00
PROVIDERS: ATTEND Internal Medicine Gastroenterology
DX: K50.90 Crohn's disease, unspecified, without complications (principal); Z88.2 Allergy status to sulfonamides; Z88.8 Allergy status to other drugs, medicaments and biological substances
CPT/HCPCS: 96413; J1745

== ENCOUNTER → 2022-02-15 | Outpatient (CLI) | payer MEDICARE, MEDICAID ==
[~2022-02-15] MED LIST changes: -ACETAMINOPHEN 650MG PO PRIOR TO INFUSION PO ONE; -INFLIXIMAB IV ONE; -NS 1,000 ML IV SCH; -NS IV ONE; -diphenhydrAMINE 25MG PO PRIOR TO INFUSION PO ONE
== END ==
LOC: M WHC 12:27
PROVIDERS: ATTEND Nurse Practitioner Family
DX: Z12.31 Encounter for screening mammogram for malignant neoplasm of breast (principal)

== ENCOUNTER 2022-03-26 10:00 | Outpatient (CLI) | payer MEDICARE, MEDICAID ==
[~2022-03-26] VITALS: Ht 160 cm; Wt 103.0 kg
[~2022-03-26 10:00] MED LIST changes: +ACETAMINOPHEN 650MG PO PRIOR TO INFUSION PO ONE; +INFLIXIMAB IV ONE; +NS 1,000 ML IV SCH; +NS IV ONE; +diphenhydrAMINE 25MG PO PRIOR TO INFUSION PO ONE
[2022-03-26 10:15] VITALS: BP 144/82
[2022-03-26 11:17] VITALS: BP 144/82
[2022-03-26 12:00] VITALS: BP 165/92
[2022-03-26 12:30] VITALS: BP 145/84
== END 2022-03-26 12:30 | disposition home or self-care (01) ==
LOC: M INFU 10:00
PROVIDERS: ATTEND Internal Medicine Gastroenterology
DX: K50.90 Crohn's disease, unspecified, without complications (principal); Z88.2 Allergy status to sulfonamides; Z88.8 Allergy status to other drugs, medicaments and biological substances
CPT/HCPCS: 96413; J1745

== ENCOUNTER 2022-05-07 09:45 | Outpatient (CLI) | payer MEDICAID, MEDICARE ==
[~2022-05-07 09:45] MED LIST changes: -ACETAMINOPHEN 650MG PO PRIOR TO INFUSION PO ONE; -INFLIXIMAB IV ONE; -NS 1,000 ML IV SCH; -NS IV ONE; -diphenhydrAMINE 25MG PO PRIOR TO INFUSION PO ONE
[2022-05-07] MEDS ORDERED: NS IV ONE (10:00)
[2022-05-07] MEDS ORDERED: ACETAMINOPHEN 650MG PO PRIOR TO INFUSION PO ONE (10:00)
[2022-05-07] MEDS ORDERED: diphenhydrAMINE 25MG PO PRIOR TO INFUSION PO ONE (10:00)
[2022-05-07] MEDS ORDERED: INFLIXIMAB IV ONE (10:00)
[2022-05-07] MEDS ORDERED: NS 1,000 ML IV SCH (10:00)
[2022-05-07 10:20] VITALS: BP 163/90
[2022-05-07 10:35] VITALS: BP 135/71
[2022-05-07 11:20] VITALS: BP 157/84
== END 2022-05-07 11:25 | disposition home or self-care (01) ==
LOC: M INFU 09:45
PROVIDERS: ATTEND Internal Medicine Gastroenterology
DX: K50.90 Crohn's disease, unspecified, without complications (principal); Z88.2 Allergy status to sulfonamides; Z88.8 Allergy status to other drugs, medicaments and biological substances
CPT/HCPCS: 96413; J1745

== ENCOUNTER → 2022-05-31 | Outpatient (CLI) | payer MEDICARE ==
[~2022-05-31] MED LIST changes: -FENO134C16 PO; +FENO134C20 PO
[2022-05-31 13:47] LABS: BASO # 0.1 10^3/uL (0.0-0.2); BASO % 0.9 % (0.0-1.0); EOS # 0.3 10^3/uL (0.0-0.5); EOS % 3.1 % (0.0-3.0); HEMATOCRIT 41.3 % (36.0-47.0); HEMOGLOBIN 13.2 g/dl (12.0-15.5); LYMPH % 33.4 % (24.0-44.0); MEAN CORPUSCULAR HEMOGLOBIN 29.5 pg (27.0-33.0); MEAN CORPUSCULAR VOLUME 92.4 fl (80.0-96.0); MONO # 0.6 10^3/uL (0.0-0.8); MONO % 6.4 % (2.0-8.0); NEUTROPHILS % 55.9 % (36.0-66.0); PLATELET COUNT, AUTOMATED 237 10^3/uL (150-450); RED BLOOD COUNT 4.47 10^6/uL (4.00-5.40); WHITE BLOOD COUNT 8.9 10^3/uL (4.0-10.0)
[2022-05-31 14:02] LABS: HEMOGLOBIN A1c 9.8 % (4.0-6.0)
[2022-05-31 14:24] LABS: ALBUMIN 3.9 G/DL (3.2-5.2); BILIRUBIN,TOTAL 0.3 MG/DL (0.3-1.2); CALCIUM LEVEL 9.4 MG/DL (8.5-10.1); CHOLESTEROL RISK RATIO 2.81 (<5); CREATININE FOR GFR 1.4 MG/DL (0.55-1.30); GLOMERULAR FILTRATION RATE 41.4 (>51); HDL CHOLESTEROL 60.1 MG/DL (>40); LDL CHOLESTEROL 63.1 MG/DL (<100); POTASSIUM SERUM 3.8 MMOL/L (3.5-5.1); THYROID STIMULATING HORMONE 0.737 uIU/ML (0.55-4.78); TOTAL 25(OH) VITAMIN D 125.1 NG/ML (20.0-100.0); TOTAL PROTEIN 8.4 G/DL (5.7-8.2)
== END ==
LOC: M LABDRWAD 10:48
PROVIDERS: ATTEND Nurse Practitioner Family
DX: Z00.01 Encounter for general adult medical examination with abnormal findings (principal); E11.65 Type 2 diabetes mellitus with hyperglycemia; E78.00 Pure hypercholesterolemia, unspecified; N18.32 Chronic kidney disease, stage 3b; Z13.1 Encounter for screening for diabetes mellitus; D51.8 Other vitamin B12 deficiency anemias; E55.9 Vitamin D deficiency, unspecified

== ENCOUNTER 2022-06-18 09:40 | Outpatient (CLI) | payer MEDICAID, MEDICARE ==
[~2022-06-18] VITALS: Ht 160 cm; Wt 97.7 kg
[2022-06-18 09:40] VITALS: BP 156/95
[2022-06-18] MEDS ORDERED: INFLIXIMAB IV ONE (10:00)
[2022-06-18] MEDS ORDERED: NS IV ONE (10:00)
[2022-06-18] MEDS ORDERED: NS 1,000 ML IV SCH (10:00)
[2022-06-18] MEDS ORDERED: diphenhydrAMINE 25MG PO PRIOR TO INFUSION PO ONE (10:00)
[2022-06-18] MEDS ORDERED: ACETAMINOPHEN 650MG PO PRIOR TO INFUSION PO ONE (10:00)
[2022-06-18 11:00] VITALS: BP 129/70
[2022-06-18 11:44] VITALS: BP 138/64
== END 2022-06-18 11:45 | disposition home or self-care (01) ==
LOC: M INFU 09:40
PROVIDERS: ATTEND Internal Medicine Gastroenterology
DX: K50.90 Crohn's disease, unspecified, without complications (principal); Z88.2 Allergy status to sulfonamides; Z88.8 Allergy status to other drugs, medicaments and biological substances
CPT/HCPCS: 96413; J1745

== ENCOUNTER 2022-07-30 09:35 | Outpatient (CLI) | payer MEDICARE, MEDICAID ==
[~2022-07-30] VITALS: Ht 160 cm; Wt 98.2 kg
[2022-07-30 09:35] VITALS: BP 152/70
[2022-07-30] MEDS ORDERED: INFLIXIMAB IV ONE (10:30)
[2022-07-30] MEDS ORDERED: ACETAMINOPHEN 650MG PO PRIOR TO INFUSION PO ONE (10:30)
[2022-07-30] MEDS ORDERED: diphenhydrAMINE 25MG PO PRIOR TO INFUSION PO ONE (10:30)
[2022-07-30] MEDS ORDERED: NS IV ONE (10:30)
[2022-07-30] MEDS ORDERED: NS 1,000 ML IV SCH (10:30)
[2022-07-30 10:45] VITALS: BP 136/84
[2022-07-30 11:40] VITALS: BP 145/85
== END 2022-07-30 11:40 | disposition home or self-care (01) ==
LOC: M INFU 09:35
PROVIDERS: ATTEND Internal Medicine Gastroenterology
DX: K50.90 Crohn's disease, unspecified, without complications (principal); Z88.2 Allergy status to sulfonamides; Z88.8 Allergy status to other drugs, medicaments and biological substances
CPT/HCPCS: 96413; J1745

== ENCOUNTER 2022-09-10 09:43 | Outpatient (CLI) | payer MEDICARE, MEDICAID ==
[~2022-09-10] VITALS: Ht 160 cm; Wt 103.0 kg
[2022-09-10] MEDS ORDERED: diphenhydrAMINE 25MG PO PRIOR TO INFUSION PO ONE (10:00)
[2022-09-10] MEDS ORDERED: NS IV ONE (10:00)
[2022-09-10] MEDS ORDERED: INFLIXIMAB IV ONE (10:00)
[2022-09-10] MEDS ORDERED: ACETAMINOPHEN 650MG PO PRIOR TO INFUSION PO ONE (10:00)
[2022-09-10] MEDS ORDERED: NS 1,000 ML IV SCH (10:00)
[2022-09-10 10:14] VITALS: BP 189/89
[2022-09-10 10:45] VITALS: BP 141/79
[2022-09-10 11:35] VITALS: BP 139/74
== END 2022-09-10 12:00 | disposition home or self-care (01) ==
LOC: M INFU 09:43
PROVIDERS: ATTEND Internal Medicine Gastroenterology
DX: K50.90 Crohn's disease, unspecified, without complications (principal); Z88.2 Allergy status to sulfonamides; Z88.8 Allergy status to other drugs, medicaments and biological substances
CPT/HCPCS: 96413; J1745

== ENCOUNTER 2022-10-22 09:21 | Outpatient (CLI) | payer MEDICARE ==
[~2022-10-22] VITALS: Ht 161.3 cm; Wt 96.8 kg
[2022-10-22 09:35] VITALS: BP 139/76
[2022-10-22] MEDS ORDERED: NS 1,000 ML IV SCH (10:00)
[2022-10-22] MEDS ORDERED: INFLIXIMAB IV ONE (10:00)
[2022-10-22] MEDS ORDERED: ACETAMINOPHEN 650MG PO PRIOR TO INFUSION PO ONE (10:00)
[2022-10-22] MEDS ORDERED: NS IV ONE (10:00)
[2022-10-22] MEDS ORDERED: diphenhydrAMINE 25MG PO PRIOR TO INFUSION PO ONE (10:00)
[2022-10-22 10:35] VITALS: BP 117/70
[2022-10-22 11:20] VITALS: BP 140/80
== END 2022-10-22 11:25 | disposition home or self-care (01) ==
LOC: M INFU 09:21
PROVIDERS: ATTEND Internal Medicine Gastroenterology
DX: K50.90 Crohn's disease, unspecified, without complications (principal); Z88.2 Allergy status to sulfonamides; Z88.8 Allergy status to other drugs, medicaments and biological substances
CPT/HCPCS: 96413; J1745

== ENCOUNTER 2022-12-03 09:40 | Outpatient (CLI) | payer MEDICARE, MEDICAID ==
[~2022-12-03] VITALS: Ht 160 cm; Wt 103.0 kg
[2022-12-03 09:40] VITALS: BP 163/79
[2022-12-03] MEDS ORDERED: INFLIXIMAB IV ONE (10:00)
[2022-12-03] MEDS ORDERED: diphenhydrAMINE 25MG PO PRIOR TO INFUSION PO ONE (10:00)
[2022-12-03] MEDS ORDERED: NS 1,000 ML IV SCH (10:00)
[2022-12-03] MEDS ORDERED: NS IV ONE (10:00)
[2022-12-03] MEDS ORDERED: ACETAMINOPHEN 650MG PO PRIOR TO INFUSION PO ONE (10:00)
[2022-12-03 10:20] VITALS: BP 145/86
[2022-12-03 11:15] VITALS: BP 149/89
== END 2022-12-03 11:15 | disposition home or self-care (01) ==
LOC: M INFU 09:40
PROVIDERS: ATTEND Internal Medicine Gastroenterology
DX: K50.90 Crohn's disease, unspecified, without complications (principal); Z88.2 Allergy status to sulfonamides; Z88.8 Allergy status to other drugs, medicaments and biological substances
CPT/HCPCS: 96413; J1745

== ENCOUNTER → 2022-12-07 | Outpatient (REF) | payer MEDICARE ==
[2022-12-07 13:18] LABS: BASO # 0.1 10^3/uL (0.0-0.2); BASO % 0.8 % (0.0-1.0); EOS # 0.2 10^3/uL (0.0-0.5); EOS % 2.1 % (0.0-3.0); HEMATOCRIT 42.1 % (36.0-47.0); HEMOGLOBIN 13.7 g/dl (12.0-15.5); LYMPH # 4.6 10^3/uL (1.5-5.0); LYMPH % 42.6 % (24.0-44.0); MEAN CORPUSCULAR HEMOGLOBIN 29.2 pg (27.0-33.0); MEAN CORPUSCULAR HGB CONC 32.5 g/dl (32.0-36.5); MEAN CORPUSCULAR VOLUME 89.8 fl (80.0-96.0); MONO # 0.6 10^3/uL (0.0-0.8); MONO % 5.5 % (2.0-8.0); NEUTROPHILS # 5.2 10^3/uL (1.5-8.5); NEUTROPHILS % 48.6 % (36.0-66.0); PLATELET COUNT, AUTOMATED 279 10^3/uL (150-450); RED BLOOD COUNT 4.69 10^6/uL (4.00-5.40); WHITE BLOOD COUNT 10.8 10^3/uL (4.0-10.0)
[2022-12-07 13:47] LABS: ALBUMIN 3.7 G/DL (3.2-5.2); ALKALINE PHOSPHATASE 163 U/L (46-116); ALT/SGPT 23 U/L (7.0-40); AST/SGOT 19 U/L (<34); BILIRUBIN,TOTAL 0.3 MG/DL (0.3-1.2); BLOOD UREA NITROGEN 29 MG/DL (9-23); CALCIUM LEVEL 9.7 MG/DL (8.5-10.1); CARBON DIOXIDE LEVEL 27 MMOL/L (20-31); CHLORIDE LEVEL 99 MMOL/L (98-107); CHOLESTEROL LEVEL 235 MG/DL (<200); CHOLESTEROL RISK RATIO 3.89 (<5); CREATININE FOR GFR 1.46 MG/DL (0.55-1.30); GLOMERULAR FILTRATION RATE 39.3 (>51); GLUCOSE, FASTING 215 MG/DL (60-100); HDL CHOLESTEROL 60.3 MG/DL (>40); NON-HDL-C 174.7 MG/DL; POTASSIUM SERUM 4.7 MMOL/L (3.5-5.1); SODIUM LEVEL 134 MMOL/L (136-145); THYROID STIMULATING HORMONE 1.466 uIU/ML (0.55-4.78); TOTAL PROTEIN 8.3 G/DL (5.7-8.2); TRIGLYCERIDES LEVEL 522 MG/DL (<150)
[2022-12-07 13:49] LABS: VITAMIN B12 LEVEL 459 PG/ML (211-911)
[2022-12-07 13:55] LABS: HEMOGLOBIN A1c 9.6 % (4.0-6.0)
== END ==
LOC: M LABDRWAD 12:21
PROVIDERS: ATTEND Registered Nurse Community Health
DX: Z00.01 Encounter for general adult medical examination with abnormal findings (principal); E11.65 Type 2 diabetes mellitus with hyperglycemia; N18.32 Chronic kidney disease, stage 3b; E78.00 Pure hypercholesterolemia, unspecified; Z13.29 Encounter for screening for other suspected endocrine disorder; D51.8 Other vitamin B12 deficiency anemias; E55.9 Vitamin D deficiency, unspecified

== ENCOUNTER 2023-01-16 09:50 | Outpatient (CLI) | payer MEDICARE, MEDICAID ==
[~2023-01-16] VITALS: Ht 160 cm; Wt 101.0 kg
[2023-01-16 09:50] VITALS: BP 142/74; O2SAT 98
[2023-01-16] MEDS ORDERED: diphenhydrAMINE 25MG PO PRIOR TO INFUSION PO ONE (10:30)
[2023-01-16] MEDS ORDERED: NS 1,000 ML IV SCH (10:30)
[2023-01-16] MEDS ORDERED: ACETAMINOPHEN 650MG PO PRIOR TO INFUSION PO ONE (10:30)
[2023-01-16] MEDS ORDERED: INFLIXIMAB IV ONE (10:30)
[2023-01-16] MEDS ORDERED: NS IV ONE (10:30)
[2023-01-16 10:50] VITALS: BP 142/74; TEMP 97.3; O2SAT 98
[2023-01-16 11:10] VITALS: BP 119/65; TEMP 97.6; O2SAT 100
[2023-01-16 12:15] VITALS: BP 130/66; O2SAT 100
== END 2023-01-16 12:15 | disposition home or self-care (01) ==
LOC: M INFU 09:50
PROVIDERS: ATTEND Internal Medicine Gastroenterology
DX: K50.90 Crohn's disease, unspecified, without complications (principal); Z88.2 Allergy status to sulfonamides; Z88.8 Allergy status to other drugs, medicaments and biological substances
CPT/HCPCS: 96413; J1745

== ENCOUNTER → 2023-02-20 | Outpatient (CLI) | payer MEDICARE, MEDICAID ==
[~2023-02-20] MED LIST changes: +DICY-61 PO; -DICY10CA13 PO; -MAXA10TA15 PO; +RIZA10TA66 PO
== END ==
LOC: M WHC 10:23
PROVIDERS: ATTEND Registered Nurse
DX: Z12.31 Encounter for screening mammogram for malignant neoplasm of breast (principal)

== ENCOUNTER 2023-02-25 05:54 | Outpatient (CLI) | payer MEDICARE, MEDICAID ==
[~2023-02-25] VITALS: Ht 160 cm; Wt 100.5 kg
[2023-02-25 13:20] VITALS: BP 138/83; O2SAT 98
[2023-02-25] MEDS ORDERED: INFLIXIMAB IV ONE (13:30)
[2023-02-25] MEDS ORDERED: NS IV ONE (13:30)
[2023-02-25] MEDS ORDERED: NS 1,000 ML IV SCH (13:30)
[2023-02-25] MEDS ORDERED: diphenhydrAMINE 25MG PO PRIOR TO INFUSION PO ONE (13:30)
[2023-02-25] MEDS ORDERED: ACETAMINOPHEN 650MG PO PRIOR TO INFUSION PO ONE (13:30)
[2023-02-25 14:27] VITALS: BP 118/71; O2SAT 95
[2023-02-25 15:15] VITALS: BP 146/80; TEMP 37.2; O2SAT 99
== END 2023-02-25 15:15 ==
LOC: M INFU 05:54
PROVIDERS: ATTEND Internal Medicine Gastroenterology
DX: K50.90 Crohn's disease, unspecified, without complications (principal); Z88.2 Allergy status to sulfonamides; Z88.8 Allergy status to other drugs, medicaments and biological substances
CPT/HCPCS: 96413; J1745

== ENCOUNTER → 2023-02-27 | Outpatient (REF) | payer MEDICARE, MEDICAID ==
[2023-02-27 17:37] LABS: CALCIUM LEVEL 9.2 MG/DL (8.5-10.1); CREATININE FOR GFR 1.23 MG/DL (0.55-1.30); GLOMERULAR FILTRATION RATE 47.9 (>51); POTASSIUM SERUM 3.9 MMOL/L (3.5-5.1)
== END ==
LOC: M LABDRWAD 16:36
PROVIDERS: ATTEND Nurse Practitioner Family
DX: E11.22 Type 2 diabetes mellitus with diabetic chronic kidney disease (principal)

== ENCOUNTER → 2023-03-07 | Outpatient (REF) | payer MEDICARE, MEDICAID ==
[2023-03-07 13:16] LABS: BASO # 0.1 10^3/uL (0.0-0.2); BASO % 0.7 % (0.0-1.0); EOS # 0.3 10^3/uL (0.0-0.5); HEMATOCRIT 37.7 % (36.0-47.0); HEMOGLOBIN 12.2 g/dl (12.0-15.5); LYMPH # 3.9 10^3/uL (1.5-5.0); LYMPH % 38.1 % (24.0-44.0); MEAN CORPUSCULAR HGB CONC 32.4 g/dl (32.0-36.5); MEAN CORPUSCULAR VOLUME 89.5 fl (80.0-96.0); MONO # 0.6 10^3/uL (0.0-0.8); MONO % 5.5 % (2.0-8.0); NEUTROPHILS # 5.4 10^3/uL (1.5-8.5); NEUTROPHILS % 52.5 % (36.0-66.0); PLATELET COUNT, AUTOMATED 268 10^3/uL (150-450); RED BLOOD COUNT 4.21 10^6/uL (4.00-5.40); WHITE BLOOD COUNT 10.2 10^3/uL (4.0-10.0)
[2023-03-07 13:19] LABS: ALBUMIN 3.5 G/DL (3.2-5.2); BILIRUBIN,TOTAL 0.3 MG/DL (0.3-1.2); CALCIUM LEVEL 9.8 MG/DL (8.5-10.1); CHOLESTEROL RISK RATIO 3.05 (<5); CREATININE FOR GFR 1.24 MG/DL (0.55-1.30); GLOMERULAR FILTRATION RATE 47.5 (>51); HDL CHOLESTEROL 52.3 MG/DL (>40); LDL CHOLESTEROL 53.9 MG/DL (<100); NON-HDL-C 107.7 MG/DL; POTASSIUM SERUM 4.9 MMOL/L (3.5-5.1); THYROID STIMULATING HORMONE 1.808 uIU/ML (0.55-4.78); TOTAL 25(OH) VITAMIN D 112.4 NG/ML (20.0-100.0); TOTAL PROTEIN 7.9 G/DL (5.7-8.2)
== END ==
LOC: M LABDRWAD 12:35
PROVIDERS: ATTEND Registered Nurse Community Health
DX: E55.9 Vitamin D deficiency, unspecified (principal); D51.8 Other vitamin B12 deficiency anemias; Z13.29 Encounter for screening for other suspected endocrine disorder; E78.00 Pure hypercholesterolemia, unspecified; N18.32 Chronic kidney disease, stage 3b; E11.65 Type 2 diabetes mellitus with hyperglycemia; Z00.01 Encounter for general adult medical examination with abnormal findings

== ENCOUNTER 2023-05-20 13:13 | Outpatient (CLI) | payer MEDICARE, MEDICAID ==
[~2023-05-20] VITALS: Ht 162.6 cm; Wt 99.2 kg
[2023-05-20 14:20] VITALS: BP 146/81; O2SAT 99
[2023-05-20] MEDS ORDERED: ACETAMINOPHEN TAB 650MG DOSE (2X325MG) PO ONE (14:30)
[2023-05-20] MEDS ORDERED: NS IV ONE (14:30)
[2023-05-20] MEDS ORDERED: diphenhydrAMINE 25MG CAP PO ONE (14:30)
[2023-05-20] MEDS ORDERED: NS 1,000 ML IV SCH (14:30)
[2023-05-20] MEDS ORDERED: INFLIXIMAB IV ONE (14:30)
[2023-05-20 16:00] VITALS: BP 146/81; TEMP 96.9
[2023-05-20 16:40] VITALS: BP 175/87; O2SAT 99
== END 2023-05-20 16:40 ==
LOC: M INFU 13:13
PROVIDERS: ATTEND Internal Medicine Gastroenterology
DX: K50.90 Crohn's disease, unspecified, without complications (principal); E11.22 Type 2 diabetes mellitus with diabetic chronic kidney disease; Z88.2 Allergy status to sulfonamides; Z88.8 Allergy status to other drugs, medicaments and biological substances
CPT/HCPCS: 36415; 36592; 80230; 82397; 83036; 96413; J1745

== ENCOUNTER → 2023-05-20 | Outpatient (CLI) | payer MEDICARE, MEDICAID ==
[2023-05-20 14:05] LABS: HEMOGLOBIN A1c 8.8 % (4.0-6.0)
== END ==
LOC: M LAB 10:11
PROVIDERS: ATTEND Nurse Practitioner Family
DX: E11.22 Type 2 diabetes mellitus with diabetic chronic kidney disease (principal)

== ENCOUNTER → 2023-09-05 | Outpatient (REF) | payer MEDICARE, MEDICAID ==
[2023-09-05 16:38] LABS: BASO # 0.1 10^3/uL (0.0-0.2); BASO % 0.7 % (0.0-1.0); EOS # 0.4 10^3/uL (0.0-0.5); EOS % 2.9 % (0.0-3.0); HEMATOCRIT 37.7 % (36.0-47.0); HEMOGLOBIN 11.9 g/dl (12.0-15.5); LYMPH # 4.1 10^3/uL (1.5-5.0); LYMPH % 33.4 % (24.0-44.0); MEAN CORPUSCULAR HEMOGLOBIN 28.1 pg (27.0-33.0); MEAN CORPUSCULAR HGB CONC 31.6 g/dl (32.0-36.5); MEAN CORPUSCULAR VOLUME 89.1 fl (80.0-96.0); MONO # 0.7 10^3/uL (0.0-0.8); MONO % 5.8 % (2.0-8.0); NEUTROPHILS # 6.9 10^3/uL (1.5-8.5); PLATELET COUNT, AUTOMATED 334 10^3/uL (150-450); RED BLOOD COUNT 4.23 10^6/uL (4.00-5.40); WHITE BLOOD COUNT 12.1 10^3/uL (4.0-10.0)
[2023-09-05 16:58] LABS: ALBUMIN 3.3 G/DL (3.2-5.2); BILIRUBIN,TOTAL 0.2 MG/DL (0.3-1.2); CALCIUM LEVEL 9.4 MG/DL (8.5-10.1); CHOLESTEROL RISK RATIO 3.25 (<5); CREATININE FOR GFR 1.51 MG/DL (0.55-1.30); GLOMERULAR FILTRATION RATE 37.7 (>51); HDL CHOLESTEROL 48.3 MG/DL (>40); LDL CHOLESTEROL 53.7 MG/DL (<100); NON-HDL-C 108.7 MG/DL; POTASSIUM SERUM 4.9 MMOL/L (3.5-5.1); TOTAL PROTEIN 7.9 G/DL (5.7-8.2)
[2023-09-05 16:59] LABS: THYROID STIMULATING HORMONE 1.385 uIU/ML (0.55-4.78); TOTAL 25(OH) VITAMIN D 96.5 NG/ML (20.0-100.0)
[2023-09-05 17:18] LABS: HEMOGLOBIN A1c 8.1 % (4.0-6.0)
== END ==
LOC: M LABDRWAD 15:59
PROVIDERS: ATTEND Registered Nurse
DX: Z00.01 Encounter for general adult medical examination with abnormal findings (principal); Z13.29 Encounter for screening for other suspected endocrine disorder; D51.8 Other vitamin B12 deficiency anemias; E55.9 Vitamin D deficiency, unspecified; E11.65 Type 2 diabetes mellitus with hyperglycemia; N18.32 Chronic kidney disease, stage 3b

== ENCOUNTER → 2023-10-18 | Outpatient (CLI) | payer MEDICARE, MEDICAID ==
[~2023-10-18] MED LIST changes: -OXYC1CAP PO; +OXYC1CAP2 PO
== END ==
LOC: M LAB 12:18
PROVIDERS: ATTEND Internal Medicine Gastroenterology
DX: K50.918 Crohn's disease, unspecified, with other complication (principal)

== ENCOUNTER → 2023-11-06 | Outpatient (CLI) | payer MEDICARE, MEDICAID ==
[~2023-11-06] VITALS: Ht 162.6 cm; Wt 100.5 kg
[~2023-11-06] MED LIST changes: +NS 1,000 ML IV SCH
[2023-11-06 14:15] VITALS: BP 142/73; O2SAT 96
[2023-11-06] MEDS: ACETAMINOPHEN 650MG PO PRIOR TO INFUSION PO ONE (15:08)
[2023-11-06] MEDS: diphenhydrAMINE 25MG PO PRIOR TO INFUSION PO ONE (15:09)
[2023-11-06] MEDS: INFLIXIMAB BIOSIMILAR 1,000 MG in NS 150 ML IV ONE (15:13)
[2023-11-06 16:28] VITALS: BP 130/68; O2SAT 99
== END ==
LOC: M INFU 14:07
PROVIDERS: ATTEND Internal Medicine Gastroenterology
DX: K50.918 Crohn's disease, unspecified, with other complication (principal); Z88.2 Allergy status to sulfonamides; Z88.8 Allergy status to other drugs, medicaments and biological substances
CPT/HCPCS: 96413; Q5103

== ENCOUNTER → 2023-11-07 | Outpatient (REF) | payer MEDICARE, MEDICAID ==
[~2023-11-07] MED LIST changes: -NS 1,000 ML IV SCH
== END ==
LOC: M LAB REF 16:56
PROVIDERS: ATTEND Nurse Practitioner Family
DX: N39.0 Urinary tract infection, site not specified (principal)

== ENCOUNTER 2024-01-01 14:40 | Outpatient (CLI) | payer MEDICARE, MEDICAID ==
[~2024-01-01] VITALS: Ht 160 cm; Wt 100.0 kg
[2024-01-01] MEDS: ACETAMINOPHEN 650MG PO PRIOR TO INFUSION PO ONE (14:54)
[2024-01-01] MEDS: diphenhydrAMINE 25MG PO PRIOR TO INFUSION PO ONE (14:54)
[2024-01-01] MEDS ORDERED: NS 1,000 ML IV SCH (15:00)
[2024-01-01] MEDS: INFLIXIMAB BIOSIMILAR 1,000 MG in NS 150 ML IV ONE (15:29)
[2024-01-01 16:40] VITALS: BP 105/59; O2SAT 98
== END 2024-01-01 16:40 ==
LOC: M INFU 14:40
PROVIDERS: ATTEND Internal Medicine Gastroenterology
DX: K50.918 Crohn's disease, unspecified, with other complication (principal); Z88.2 Allergy status to sulfonamides; Z88.8 Allergy status to other drugs, medicaments and biological substances
CPT/HCPCS: 96365; Q5103

== ENCOUNTER 2024-02-26 15:15 | Outpatient (CLI) | payer MEDICARE, MEDICAID ==
[~2024-02-26] VITALS: Ht 161.3 cm; Wt 105.0 kg
[2024-02-26 15:15] VITALS: BP 128/68; TEMP 97.6; O2SAT 98
[~2024-02-26 15:15] MED LIST changes: +NS 1,000 ML IV SCH
[2024-02-26] MEDS: ACETAMINOPHEN 650MG PO PRIOR TO INFUSION PO ONE (15:21)
[2024-02-26] MEDS: diphenhydrAMINE 25MG PO PRIOR TO INFUSION PO ONE (15:21)
[2024-02-26] MEDS: INFLIXIMAB BIOSIMILAR 1,000 MG in NS 150 ML IV ONE (16:27)
[2024-02-26 16:45] VITALS: BP 116/66; TEMP 97.6; O2SAT 97
[2024-02-26 17:35] VITALS: BP 106/54; O2SAT 99
== END 2024-02-26 17:35 ==
LOC: M INFU 15:15
PROVIDERS: ATTEND Internal Medicine Gastroenterology
DX: K50.918 Crohn's disease, unspecified, with other complication (principal); Z88.2 Allergy status to sulfonamides; Z88.8 Allergy status to other drugs, medicaments and biological substances
CPT/HCPCS: 96413; Q5103

== ENCOUNTER → 2024-03-20 | Outpatient (REF) | payer MEDICARE, MEDICAID ==
[~2024-03-20] MED LIST changes: -NS 1,000 ML IV SCH
[2024-03-20 18:20] LABS: CHOLESTEROL RISK RATIO 2.74 (<5); LDL CHOLESTEROL 52.6 MG/DL (<100)
== END ==
LOC: M LABDRWAD 17:04
PROVIDERS: ATTEND Registered Nurse
DX: E78.00 Pure hypercholesterolemia, unspecified (principal)

== ENCOUNTER → 2024-03-30 | Outpatient (CLI) | payer MEDICARE, MEDICAID | LOC: M RAD 10:40 | PROVIDERS: ATTEND Nurse Practitioner Family | DX: N18.32 Chronic kidney disease, stage 3b (principal) ==

== ENCOUNTER 2024-04-22 14:25 | Outpatient (CLI) | payer MEDICARE, MEDICAID ==
[~2024-04-22] VITALS: Ht 160 cm; Wt 104.0 kg
[2024-04-22 14:55] VITALS: BP 131/65; O2SAT 97
[2024-04-22] MEDS ORDERED: NS 1,000 ML IV SCH (15:00)
[2024-04-22] MEDS: diphenhydrAMINE 25MG PO PRIOR TO INFUSION PO ONE (15:01)
[2024-04-22] MEDS: ACETAMINOPHEN 650MG PO PRIOR TO INFUSION PO ONE (15:01)
[2024-04-22] MEDS: INFLIXIMAB BIOSIMILAR 1,000 MG in NS 150 ML IV ONE (15:46)
[2024-04-22 17:00] VITALS: BP 123/77; TEMP 35.9; O2SAT 99
== END 2024-04-22 17:00 ==
LOC: M INFU 14:25
PROVIDERS: ATTEND Internal Medicine Gastroenterology
DX: K50.918 Crohn's disease, unspecified, with other complication (principal); Z88.2 Allergy status to sulfonamides; Z88.8 Allergy status to other drugs, medicaments and biological substances
CPT/HCPCS: 96413; Q5103

== ENCOUNTER 2024-06-17 09:50 | Outpatient (CLI) | payer MEDICARE, MEDICAID ==
[~2024-06-17] VITALS: Ht 161.3 cm; Wt 105.5 kg
[~2024-06-17 09:50] MED LIST changes: -POTA10808 PO; +POTA10809 PO
[2024-06-17] MEDS: ACETAMINOPHEN 650MG PO PRIOR TO INFUSION PO ONE (09:55)
[2024-06-17] MEDS: diphenhydrAMINE 25MG PO PRIOR TO INFUSION PO ONE (09:55)
[2024-06-17] MEDS ORDERED: NS 1,000 ML IV SCH (10:00)
[2024-06-17 10:02] VITALS: BP 130/68; TEMP 98.3; O2SAT 95
[2024-06-17] MEDS: INFLIXIMAB BIOSIMILAR 1,000 MG in NS 150 ML IV ONE (11:05)
[2024-06-17 12:10] VITALS: BP 119/63; O2SAT 98
== END 2024-06-17 12:15 ==
LOC: M INFU 09:50
PROVIDERS: ATTEND Internal Medicine Gastroenterology
DX: K50.918 Crohn's disease, unspecified, with other complication (principal); Z88.2 Allergy status to sulfonamides; Z88.8 Allergy status to other drugs, medicaments and biological substances
CPT/HCPCS: 96365; Q5103

== ENCOUNTER → 2024-08-12 | Outpatient (CLI) | payer MEDICARE, MEDICAID ==
[~2024-08-12] VITALS: Ht 160 cm; Wt 104.0 kg
[~2024-08-12] MED LIST changes: +NS (Normal Saline) 0.9% 1,000 ML IV SCH
[2024-08-12 10:00] VITALS: BP 136/89; O2SAT 96
[2024-08-12] MEDS: diphenhydrAMINE 25MG PO PRIOR TO INFUSION PO ONE (10:09)
[2024-08-12] MEDS: ACETAMINOPHEN 650MG PO PRIOR TO INFUSION PO ONE (10:09)
[2024-08-12] MEDS: INFLIXIMAB BIOSIMILAR 1,000 MG in NS 150 ML IV ONE (10:52)
[2024-08-12 11:57] VITALS: BP 129/60; O2SAT 97
== END ==
LOC: M INFU 09:52
PROVIDERS: ATTEND Internal Medicine Gastroenterology
DX: K50.918 Crohn's disease, unspecified, with other complication (principal); Z88.2 Allergy status to sulfonamides; Z88.8 Allergy status to other drugs, medicaments and biological substances
CPT/HCPCS: 96413; Q5103

== ENCOUNTER → 2024-08-26 | Outpatient (CLI) | payer MEDICARE, MEDICAID ==
[~2024-08-26] MED LIST changes: -NS (Normal Saline) 0.9% 1,000 ML IV SCH
[2024-08-26 14:11] LABS: CHOLESTEROL RISK RATIO 2.35 (<5); HDL CHOLESTEROL 67.2 MG/DL (>40); LDL CHOLESTEROL 54.2 MG/DL (<100); NON-HDL-C 90.8 MG/DL
== END ==
LOC: M RAD 12:03
PROVIDERS: ATTEND Registered Nurse
DX: M79.601 Pain in right arm (principal); E78.00 Pure hypercholesterolemia, unspecified

== ENCOUNTER → 2024-09-09 | Outpatient (CLI) | payer MEDICARE, MEDICAID | LOC: M RAD 13:31 | PROVIDERS: ATTEND Registered Nurse | DX: M79.601 Pain in right arm (principal); R91.8 Other nonspecific abnormal finding of lung field; M19.021 Primary osteoarthritis, right elbow; M19.011 Primary osteoarthritis, right shoulder ==

== ENCOUNTER → 2024-09-24 | Outpatient (CLI) | payer MEDICARE, MEDICAID | LOC: M RAD 07:04 | PROVIDERS: ATTEND Registered Nurse | DX: R19.04 Left lower quadrant abdominal swelling, mass and lump (principal) ==

== ENCOUNTER 2024-10-07 09:38 | Outpatient (CLI) | payer MEDICARE, MEDICAID ==
[~2024-10-07] VITALS: Ht 160 cm; Wt 104.0 kg
[2024-10-07 09:50] VITALS: BP 131/68; O2SAT 98
[2024-10-07] MEDS: diphenhydrAMINE 25MG PO PRIOR TO INFUSION PO ONE (09:59)
[2024-10-07] MEDS: ACETAMINOPHEN 650MG PO PRIOR TO INFUSION PO ONE (09:59)
[2024-10-07] MEDS ORDERED: NS (Normal Saline) 0.9% 1,000 ML IV SCH (10:00)
[2024-10-07] MEDS: INFLIXIMAB BIOSIMILAR 1,000 MG in NS 150 ML IV ONE (10:51)
[2024-10-07 11:15] VITALS: BP 95/53; O2SAT 100
[2024-10-07 12:00] VITALS: BP 112/68; O2SAT 100
== END 2024-10-07 12:00 ==
LOC: M INFU 09:38
PROVIDERS: ATTEND Internal Medicine Gastroenterology
DX: K50.918 Crohn's disease, unspecified, with other complication (principal); Z88.2 Allergy status to sulfonamides; Z88.8 Allergy status to other drugs, medicaments and biological substances
CPT/HCPCS: 96413; Q5103

== ENCOUNTER → 2024-11-11 | Outpatient (CLI) | payer MEDICARE, MEDICAID ==
[~2024-11-11] MED LIST changes: -AMBI10TA PO; +ZOLP-533 PO
== END ==
LOC: M LAB 14:29
PROVIDERS: ATTEND Internal Medicine Gastroenterology
DX: K50.918 Crohn's disease, unspecified, with other complication (principal)

== ENCOUNTER → 2024-11-25 | Outpatient (CLI) | payer MEDICARE, MEDICAID | LOC: M PLAIMG 08:14 | PROVIDERS: ATTEND Nurse Practitioner Family | DX: N20.0 Calculus of kidney (principal); N17.9 Acute kidney failure, unspecified ==

== ENCOUNTER 2024-12-02 09:08 | Outpatient (CLI) | payer MEDICARE, MEDICAID ==
[~2024-12-02] VITALS: Ht 160 cm; Wt 106.8 kg
[2024-12-02 10:00] VITALS: BP 112/55; O2SAT 96
[2024-12-02] MEDS: diphenhydrAMINE 25MG PO PRIOR TO INFUSION PO ONE (10:13)
[2024-12-02] MEDS: INFLIXIMAB BIOSIMILAR 1,000 MG in NS 150 ML IV ONE (11:05)
[2024-12-02 12:13] VITALS: BP 149/83; O2SAT 100
== END 2024-12-02 12:15 | disposition home or self-care (01) ==
LOC: M INFU 09:08
PROVIDERS: ATTEND Internal Medicine Gastroenterology
DX: K50.918 Crohn's disease, unspecified, with other complication (principal); Z88.2 Allergy status to sulfonamides; Z88.8 Allergy status to other drugs, medicaments and biological substances
CPT/HCPCS: 96365; Q5103

== ENCOUNTER → 2025-01-22 | Outpatient (CLI) | payer MEDICARE, MEDICAID ==
[2025-01-22 15:56] LABS: PLATELET COUNT, AUTOMATED 240 10^3/uL (150-450)
[2025-01-22 16:17] LABS: CALCIUM LEVEL 9.2 MG/DL (8.5-10.1); CARBON DIOXIDE LEVEL 29.0 MMOL/L (20-31); CHLORIDE LEVEL 105.0 MMOL/L (98-107); CREATININE FOR GFR 1.43 MG/DL (0.55-1.30); GLOMERULAR FILTRATION RATE 42.3 (>51); POTASSIUM SERUM 4.8 MMOL/L (3.5-5.1); SODIUM LEVEL 145.0 MMOL/L (136-145)
== END ==
LOC: M RAD 12:34
PROVIDERS: ATTEND Nurse Practitioner Family
DX: Z01.818 Encounter for other preprocedural examination (principal)

== ENCOUNTER 2025-01-27 09:35 | Outpatient (CLI) | payer MEDICARE, MEDICAID ==
[~2025-01-27] VITALS: Ht 160 cm; Wt 105.9 kg
[2025-01-27 09:35] VITALS: BP 133/72; O2SAT 100
[2025-01-27] MEDS: diphenhydrAMINE 25MG PO PRIOR TO INFUSION PO ONE (09:57)
[2025-01-27] MEDS: ACETAMINOPHEN 650MG PO PRIOR TO INFUSION PO ONE (09:57)
[2025-01-27] MEDS ORDERED: NS (Normal Saline) 0.9% 1,000 ML IV SCH (10:00)
[2025-01-27] MEDS: INFLIXIMAB BIOSIMILAR 1,000 MG in NS 150 ML IV ONE (10:29)
[2025-01-27 11:45] VITALS: BP 121/63; O2SAT 99
== END 2025-01-27 11:45 ==
LOC: M INFU 09:35
PROVIDERS: ATTEND Internal Medicine Gastroenterology
DX: K50.918 Crohn's disease, unspecified, with other complication (principal); Z88.2 Allergy status to sulfonamides; Z88.8 Allergy status to other drugs, medicaments and biological substances
CPT/HCPCS: 96413; Q5103

== ENCOUNTER 2025-02-18 06:04 | Day surgery (SDC) | payer MEDICARE, MEDICAID ==
[~2025-02-18] VITALS: Ht 161.3 cm; Wt 107.5 kg
[~2025-02-18 06:04] MED LIST changes: +ATOR1TAB21 PO; +INFL10VL IV; +SEMA1PEN2 SC; +TRAD5TAB PO; +TRES1INJ2 SC
[2025-02-18] MEDS ORDERED: MIDAZOLAM INJ 2 MG/2 ML VIAL As Ordered ONE (07:03)
[2025-02-18] MEDS ORDERED: KETAMINE HCL 200 MG/20 ML VIAL As Ordered ONE (07:03)
[2025-02-18] MEDS ORDERED: dexAMETHasone 4 MG/ML 1 ML VIAL As Ordered ONE (07:05)
[2025-02-18] MEDS ORDERED: LIDOCAINE 2% 100 MG/5 ML SDV (FOR ANES.) As Ordered ONE (07:05)
[2025-02-18] MEDS ORDERED: GLYCOPYRROLATE INJ 0.2 MG/ML 2 ML VIAL As Ordered ONE (07:05)
[2025-02-18] MEDS ORDERED: ONDANSETRON 4MG 2ML VIAL As Ordered ONE (07:06)
[2025-02-18] MEDS ORDERED: ACETAMINOPHEN 1000MG/100ML IV BAG As Ordered ONE (07:06)
[2025-02-18] MEDS: ceFAZolin SOD 2 GM IV ONCE IV ONE (07:35)
[2025-02-18] MEDS ORDERED: TAMS-18 PO (07:59)
[2025-02-18] MEDS ORDERED: OXYC1TAB23 PO (07:59)
[2025-02-18 08:45] VITALS: BP 121/68; TEMP 97.1; O2SAT 97
== END 2025-02-18 08:52 | disposition home or self-care (01) ==
LOC: M SDC 06:04
PROVIDERS: ATTEND Urology
DX: N20.0 Calculus of kidney (principal); E11.22 Type 2 diabetes mellitus with diabetic chronic kidney disease; I12.9 Hypertensive chronic kidney disease with stage 1 through stage 4 chronic kidney disease, or unspecified chronic kidney disease; N18.30 Chronic kidney disease, stage 3 unspecified; K21.9 Gastro-esophageal reflux disease without esophagitis; K50.90 Crohn's disease, unspecified, without complications; Z79.899 Other long term (current) drug therapy; Z79.01 Long term (current) use of anticoagulants; Z79.85 Long-term (current) use of injectable non-insulin antidiabetic drugs; Z79.4 Long term (current) use of insulin; Z86.711 Personal history of pulmonary embolism; Z87.891 Personal history of nicotine dependence; Z90.710 Acquired absence of both cervix and uterus
CPT/HCPCS: 50590; 74018; J0131; J0690; J1100; J1596; J2250; J2405; J3010

== ENCOUNTER → 2025-03-09 | Outpatient (CLI) | payer MEDICARE, MEDICAID ==
[~2025-03-09] MED LIST changes: +OXYC1TAB23 PO; +TAMS-18 PO
== END ==
LOC: M RAD 12:00
PROVIDERS: ATTEND Nurse Practitioner Family
DX: Z48.89 Encounter for other specified surgical aftercare (principal); N20.0 Calculus of kidney

== ENCOUNTER 2025-03-24 07:57 | Outpatient (CLI) | payer MEDICARE, MEDICAID ==
[~2025-03-24] VITALS: Ht 160 cm; Wt 106.0 kg
[~2025-03-24 07:57] MED LIST changes: -ZOLP5TAB PO; +ZOLP5TAB9 PO
[2025-03-24] MEDS: diphenhydrAMINE 25MG PO PRIOR TO INFUSION PO ONE (08:24)
[2025-03-24] MEDS: ACETAMINOPHEN 650MG PO PRIOR TO INFUSION PO ONE (08:24)
[2025-03-24 08:25] VITALS: BP 132/62; O2SAT 98
[2025-03-24] MEDS: INFLIXIMAB BIOSIMILAR 1,000 MG in NS 150 ML IV ONE (09:24)
[2025-03-24 09:45] VITALS: BP 122/66; O2SAT 96
[2025-03-24 10:30] VITALS: BP 120/57; TEMP 36.3; O2SAT 100
== END 2025-03-24 10:30 ==
LOC: M INFU 07:57
PROVIDERS: ATTEND Internal Medicine Gastroenterology
DX: K50.918 Crohn's disease, unspecified, with other complication (principal); Z88.2 Allergy status to sulfonamides; Z88.8 Allergy status to other drugs, medicaments and biological substances
CPT/HCPCS: 96413; Q5103

== ENCOUNTER → 2025-04-02 | Outpatient (REF) | payer MEDICARE, MEDICAID | LOC: M SFHCDERM 13:13 | PROVIDERS: ATTEND Physician Assistant | DX: L30.4 Erythema intertrigo (principal) ==

== ENCOUNTER 2025-05-19 09:33 | Outpatient (CLI) | payer MEDICARE, MEDICAID ==
[~2025-05-19] VITALS: Ht 160 cm; Wt 107.0 kg
[2025-05-19 09:30] VITALS: BP 134/73; O2SAT 99
[2025-05-19] MEDS: diphenhydrAMINE 25MG PO PRIOR TO INFUSION PO ONE (09:37)
[2025-05-19] MEDS: ACETAMINOPHEN 650MG PO PRIOR TO INFUSION PO ONE (09:37)
[2025-05-19] MEDS ORDERED: NS (Normal Saline) 0.9% 1,000 ML IV SCH (10:00)
[2025-05-19] MEDS: INFLIXIMAB BIOSIMILAR 1,000 MG in NS 150 ML IV ONE (10:26)
[2025-05-19 11:28] VITALS: BP 111/59; O2SAT 97
== END 2025-05-19 11:30 | disposition home or self-care (01) ==
LOC: M INFU 09:33
PROVIDERS: ATTEND Internal Medicine Gastroenterology
DX: K50.918 Crohn's disease, unspecified, with other complication (principal); Z88.2 Allergy status to sulfonamides; Z88.8 Allergy status to other drugs, medicaments and biological substances
CPT/HCPCS: 96413; Q5103

== ENCOUNTER 2025-07-14 09:30 | Outpatient (CLI) | payer MEDICARE, MEDICAID ==
[~2025-07-14] VITALS: Ht 161.3 cm; Wt 108.0 kg
[2025-07-14] MEDS ORDERED: NS (Normal Saline) 0.9% 1,000 ML IV SCH (10:00)
[2025-07-14] MEDS: diphenhydrAMINE 25MG PO PRIOR TO INFUSION PO ONE (10:09)
[2025-07-14] MEDS: ACETAMINOPHEN 650MG PO PRIOR TO INFUSION PO ONE (10:09)
[2025-07-14 10:14] VITALS: BP 121/58; O2SAT 96
[2025-07-14] MEDS: INFLIXIMAB BIOSIMILAR 1,000 MG in NS 150 ML IV ONE (11:11)
[2025-07-14 12:20] VITALS: BP 104/62; O2SAT 97
== END 2025-07-14 12:20 ==
LOC: M INFU 09:30
PROVIDERS: ATTEND Internal Medicine Gastroenterology
DX: K50.918 Crohn's disease, unspecified, with other complication (principal); Z88.2 Allergy status to sulfonamides; Z88.8 Allergy status to other drugs, medicaments and biological substances
CPT/HCPCS: 96413; Q5103